=== PATIENT | female | born 1940 | race Caucasian/White ===

== ENCOUNTER 2016-07-30 23:15 | Inpatient (IN) | payer MEDICARE, MEDICAID ==
[~2016-07-30] VITALS: Ht 154.9 cm; Wt 119.0 kg
[~2016-07-30 23:15] MED LIST: ALBU1.25PR NEB; ALPR.5 PO; CALC250 PO; CARV3.125 PO; CITA20 PO; FURO1TAB93 PO; LEVO.025 PO; LORA10 PO; MAGN30S PO; NORC10TA2 PO; PREG75 PO; TIOT18I INH; WALKER STANDARD; WARF5 PO; WARF7.5 PO; WELLTAB39 PO; Z.0.WHEELELR
[2016-07-30 23:20] VITALS: BP 117/57; PULSE 61; RESP 16; TEMP 98.2; O2SAT 98
[2016-07-30 23:30] VITALS: RESP 18
[2016-07-30] MEDS ORDERED: SODIUM CHLORIDE 0.9% FLUSH 5 ML FLUSH IVF PRN (23:30)
[2016-07-30 23:53] LABS: AUTOMATED NEUTROPHIL # 4.6 TH/MM3 (1.8-7.7); BASOPHIL # 0.1 TH/MM3 (0-0.2); BASOPHIL % 0.9 % (0.0-2.0); EOSINOPHIL # 0.6 TH/MM3 (0-0.4); EOSINOPHIL % 7.9 % (0.0-4.0); HEMATOCRIT 35.8 % (35.0-46.0); HEMO FLAGS DIFF FINAL; LYMPH % 22.4 % (9.0-44.0); LYMPHOCYTE # 1.8 TH/MM3 (1.0-4.8); MEAN CELL VOLUME 84.4 FL (80.0-100.0); MEAN CORPUSCULAR HEMOGLOBIN 28.1 PG (27.0-34.0); MEAN CORPUSCULAR HGB CONC 33.3 % (32.0-36.0); MONO % 10.9 % (0.0-8.0); NEUT % 57.9 % (16.0-70.0); PLATELET COUNT 217 TH/MM3 (150-450); RED BLOOD COUNT 4.25 MIL/MM3 (4.00-5.30); RED CELL DISTRIBUTION WIDTH 14.3 % (11.6-17.2)
[2016-07-31] VITALS (12 sets, daily range): BP systolic 110–158; BP diastolic 55–74; PULSE 60–76; RESP 16–21; TEMP 97.6–98; O2SAT 95–100
--- NOTE | 2016-07-31 00:16 | RADRPT ---
EXAM DATE/TIME: 07/30/2016 23:50 [facility] COMPARISON: No previous studies available for comparison. INDICATIONS : Shortness of breath for 2 days MEDICAL HISTORY : Congestive heart failure. SURGICAL HISTORY : Pacemaker. ENCOUNTER: Initial ACUITY: 2 days PAIN SCORE: 0/10 LOCATION: Bilateral chest FINDINGS: Basilar predominant bilateral interstitial opacities are noted. Mild perihilar and basilar infiltrate seen on the left. No large pleural effusion seen. No pneumothorax. Mild cardiomegaly is stable. Patient has a left subclavian transvenous cardiac pacer with a single le ad, appear similar to before. CONCLUSION: Mild failure suspected with possible superimposed left base pneumonia. Antonino Will MD on July 31, 2016 at 0:13 Board Certified Radiologist. This report was verified electronically.
[2016-07-31 00:21] LABS: APTT (PATIENT) 34.1 SEC (24.3-30.1)
[2016-07-31 00:26] LABS: ANION GAP 8 MEQ/L (5-15); AST (GOT) 13 U/L (15-37); BICARBONATE 28.7 MEQ/L (21.0-32.0); BLOOD UREA NITROGEN 21 MG/DL (7-18); CHLORIDE 103 MEQ/L (98-107); GLOMERULAR FILTRATION RATE 41 ML/MIN (>89); POTASSIUM 3.7 MEQ/L (3.5-5.1); SODIUM (NA) 140 MEQ/L (136-145)
--- NOTE | 2016-07-31 00:27 | PD ---
HPI Chief Complaint: Respiratory Symptoms Time Seen by Provider: 23:26 Travel History International Travel<30 days: No Contact w/Intl Traveler<30days: No Traveled to known affect area: No History of Present Illness HPI The patient 76 years old. She has CHF coronary artery disease atrial fibrillation with pacing device as well as a history of gastric bypass. She called EMS from her longterm. EMS states the patient wanted Xanax that her nurse at the living facility did not respond to her calls. During my exam the patient complains of pain in the region of the left chest breath. Patient is quite distractible limiting history. PFSH Past Medical History Arthritis: Yes Asthma: No Atrial Fibrillation: Yes Autoimmune Disease: No Blood Disorders: No Anxiety: Yes Depression: Yes Heart Rhythm Problems: Yes (A-FIB; PACEMAKER) Cancer: Yes (basal cell carcinoma right face ) Cardiovascular Problems: Yes High Cholesterol: Yes Chemotherapy: No Chest Pain: No Congestive Heart Failure: Yes COPD: No Cerebrovascular Accident: No Coronary Artery Disease: Yes Diabetes: No Diminished Hearing: No Deep Vein Thrombosis: Yes Endocrine: Yes Gastrointestinal Disorders: Yes GERD: No Glaucoma: No Genitourinary: No Headaches: No Hepatitis: No Hiatal Hernia: No Hypertension: No Immune Disorder: No Implanted Vascular Access Dvce: Yes Insomnia: Yes Kidney Stones: No Musculoskeletal: Yes Neurologic: Yes Psychiatric: Yes Reproductive: No Respiratory: Yes Immunizations Current: Yes Migraines: No Myocardial Infarction: No Radiation Therapy: No Renal Failure: No Seizures: No Sickle Cell Disease: No Sleep Apnea: Yes (CPAP) Thyroid Disease: Yes (HYPOTHYROID) Ulcer: No Tetanus Vaccination: < 5 Years Influenza Vaccination: Yes PNEUMOCCOCAL Vaccine (Year): 2008 ?: Not Menopausal: Yes Past Surgical History Abdominal Surgery: Yes (GASTRIC BYPASS THEN REVERSAL) AICD: No Appendectomy: Yes Arteriovenous Shunt: No Body Medical Devices: CERVICAL FUSION WITH INSTRUMENTATION, IVC FILTER Cardiac Surgery: No Cholecystectomy: Yes Ear Surgery: No Endocrine Surgery: No Eye Surgery: No Genitourinary Surgery: Yes Gynecologic Surgery: Yes Hysterectomy: Yes (OOPHERECTOMY ONLY) Insulin Pump: No Joint Replacement: Yes (BILATERAL KNEE REPLACEMENT X 2) Neurologic Surgery: No Oral Surgery: No Pacemaker: Yes Thoracic Surgery: No Other Surgery: Yes (ABD GROWTH REMOVED-BENIGN, SPINAL FUSION) Social History Alcohol Use: No Tobacco Use: No Substance Use: No Allergies-Medications (Allergen,Severity, Reaction): Coded Allergies: Contrast Media (Verified Allergy, Severe, HIVES, 07/30/16) Penicillin (Verified Allergy, Severe, 07/30/16) Reported Meds & Prescriptions Reported Meds & Active Scripts Active Azithromycin 250 Mg Tab 250 Mg PO DAILY 4 Days Albuterol Sulfate 1.25 Mg/3 Ml Neb 1.25 Mg NEB Q6HR NEB 30 Days Coreg 3.125 mg (Carvedilol) 3.125 Mg Tab 3.125 Mg PO HS 30 Days Winfred 10-325 mg (Hydrocodone-Acetaminophen 10-325 mg) 10/325 mg Tab 1 Tab PO Q4HR PRN Xanax (Alprazolam) 0.5 Mg Tab 0.5 Mg PO Q8H PRN Lasix (Furosemide) 40 Mg Tab 40 Mg PO DAILY 30 Days Milk Of Magnesia (Magnesium Hydroxide) 30 Ml Susp 30 Ml PO Q12H Coumadin (Warfarin Sod) 5 Mg Tab 5 Mg PO MOWEFR@16 Coumadin (Warfarin Sod) 7.5 Mg Tab 7.5 Mg PO SUTUTHSA@16 Celexa 20 Mg Tab (Citalopram Hydrobromide) 20 Mg Tab 20 Mg PO DAILY Loratadine 10 Mg Tab 10 Mg PO DAILY Spiriva 18 Mcg18 Mcg 18 Mcg Inhp 18 Mcg INH DAILY 30 Days Levothyroxine Sodium 25 Mcg Tab 25 Mcg PO DAILY@0600 Wellbutrin X2 300 Mg Fr[place] 300 Mg PO DAILY Oscal-D 250 MG /125 UNITS Tab (Calcium/Vitamin D) 250 Mg/125 Units Tab 1 Tab PO TID Review of Systems Except as stated in HPI: all other systems reviewed are Neg Physical Exam Narrative GENERAL: 76-year-old female pleasant, BMI 62.5 SKIN: Warm and dry. HEAD: Atraumatic. Normocephalic. EYES: Pupils equal and round. No scleral icterus. No injection or drainage. ENT: No nasal bleeding or discharge. Mucous membranes pink and moist. NECK: Trachea midline. No JVD. CARDIOVASCULAR: Regular rate and rhythm. No murmur appreciated. RESPIRATORY: No accessory muscle use. Clear to auscultation. Breath sounds equal bilaterally. GASTROINTESTINAL: Soft. No focal tenderness. MUSCULOSKELETAL: No obvious deformities. No clubbing. No cyanosis. No edema. NEUROLOGICAL: Awake and alert. No obvious cranial nerve deficits. Motor grossly within normal limits. Normal speech. PSYCHIATRIC: Appropriate mood and affect; insight and judgment normal. Data Data Last Documented VS Vital Signs Date Time Temp Pulse Resp B/P Pulse Ox O2 Delivery O2 Flow Rate FiO2 07/30/16 23:30 98 Room Air 07/30/16 23:30 18 07/30/16 23:30 2 07/30/16 23:20 98.2 61 117/57 117/57 Orders Complete Blood Count With Diff (07/30/16 23:26) Comprehensive Metabolic Panel (07/30/16 23:26) B-Type Natriuretic Peptide (07/30/16 23:26) Act Partial Throm Time (Ptt) (07/30/16 23:26) Prothrombin Time / Inr (Pt) (07/30/16 23:26) Ckmb (Isoenzyme) Profile (07/30/16:26) Troponin I (07/30/16 23:26) Urinalysis - C+S If Indicated (07/30/16 23:26) Iv Access Insert/Monitor (07/30/16 23:26) Electrocardiogram (07/30/16:26) Ecg Monitoring (07/30/16 23:26) Oximetry (07/30/16 23:26) Oxygen Administration (07/30/16 23:26) Chest, Single Ap (07/30/16 23:26) Sodium Chloride 0.9% Flush (Ns Flush) (07/30/16 23:30) Alprazolam (Xanax) (07/31/16 00:45) Blood Culture (07/31/16 01:11) Ceftriaxone Inj (Rocephin Inj) (07/31/16 01:15) Azithromycin Inj (Zithromax Inj) (07/31/16 01:15) Admit Order (Ed Use Only) (07/31/16 01:11) Labs Laboratory Tests Test 07/30/16 23:30 White Blood Count 8.0 TH/MM3 Red Blood Count 4.25 MIL/MM3 Hemoglobin 11.9 GM/DL Hematocrit 35.8 % Mean Corpuscular Volume 84.4 FL Mean Corpuscular Hemoglobin 28.1 PG Mean Corpuscular Hemoglobin 33.3 % Concent Red Cell Distribution Width 14.3 % Platelet Count 217 TH/MM3 Mean Platelet Volume 9.1 FL Neutrophils (%) (Auto) 57.9 % Lymphocytes (%) (Auto) 22.4 % Monocytes (%) (Auto) 10.9 % Eosinophils (%) (Auto) 7.9 % Basophils (%) (Auto) 0.9 % Neutrophils # (Auto) 4.6 TH/MM3 Lymphocytes # (Auto) 1.8 TH/MM3 Monocytes # (Auto) 0.9 TH/MM3 Eosinophils # (Auto) 0.6 TH/MM3 Basophils # (Auto) 0.1 TH/MM3 CBC Comment DIFF FINAL Differential Comment Prothrombin Time 23.0 SEC Prothromb Time International 2.0 RATIO Ratio Activated Partial 34.1 SEC Thromboplast Time Sodium Level 140 MEQ/L Potassium Level 3.7 MEQ/L Chloride Level 103 MEQ/L Carbon Dioxide Level 28.7 MEQ/L Anion Gap 8 MEQ/L Blood Urea Nitrogen 21 MG/DL Creatinine 1.27 MG/DL Estimat Glomerular Filtration 41 ML/MIN Rate Random Glucose 112 MG/DL Calcium Level 8.8 MG/DL Total Bilirubin 0.4 MG/DL Aspartate Amino Transf 13 U/L (AST/SGOT) Alanine Aminotransferase 16 U/L (ALT/SGPT) Alkaline Phosphatase 117 U/L Total Creatine Kinase 57 U/L Troponin I LESS THAN 0.02 NG/ML B-Type Natriuretic Peptide 225 PG/ML Total Protein 7.2 GM/DL Albumin 3.3 GM/DL MDM Medical Decision Making Medical Screen Exam Complete: Yes Emergency Medical Condition: Yes Medical Record Reviewed: Yes Differential Diagnosis Pneumonia, gastritis, chronic pain Narrative Course CBC & BMP Diagram 07/30/16 23:30 LFTs essentially normal Troponin less than 0.02 EKG reveals an electronic maker morphology at a rate of 61 x-ray shows a pneumonia at the left base. Patient notes spitting up quite a bit however denies any specific cough shortness of breath or fever. She did mention that in addition to her desire for Xanax she had discomfort towards the left lower part of the chest. Blood cultures drawn. Rocephin and azithromycin drawn. Troponin is undetectable. Case discussed with Dr. Zacarias. PNA severity index is 138 and patient will be admitted for abx treatment and monitoring. Diagnosis Primary Impression: Pneumonia Qualified Code: J18.1 - Pneumonia of left lower lobe due to infectious organism Referrals: Dl Zacarias MD 2 days Additional Instructions: You have a choice when it comes to health care, and we are glad that you chose [facility]. Hopefully, we have met your expectations on today's visit. You are welcome to return to [facility] at any time, as we are committed to meeting the health care needs of our community. Med/Other Pt SpecificInfo: Prescription(s) given Scripts Azithromycin 250 Mg [id number] Mg PO DAILY 4 Days Ref 0 Prov:Rashawn Tijerina MD 07/31/16 Disposition: 01 DISCHARGE HOME Condition: Stable Rashawn Tijerina MD Jul 31, 2016 00:27
[2016-07-31 00:31] LABS: ALKALINE PHOSPHATASE 117 U/L (45-117); ALT (GPT) 16 U/L (10-53); TOTAL BILIRUBIN ADULT 0.4 MG/DL (0.2-1.0)
[2016-07-31 00:32] LABS: CREATINE KINASE 57 U/L (26-192)
[2016-07-31] MEDS ORDERED: ALPRAZolam 0.5 MG TAB PO ONE (00:45)
[2016-07-31] MEDS ORDERED: AZIT250T3 PO (01:07)
[2016-07-31] MEDS ORDERED: cefTRIAXone INJ 1,000 MG in SODIUM CHLORIDE 0.9% INJ 100 ML IV ONE (01:15)
[2016-07-31] MEDS ORDERED: AZITHROMYCIN INJ 500 MG in SODIUM CHLOR 0.9% 250 ML INJ 250 ML IV ONE (01:15)
[2016-07-31] MEDS ORDERED: SODIUM CHLORIDE 0.9% FLUSH 5 ML FLUSH IVF PRN ×3 (01:30)
[2016-07-31] MEDS ORDERED: ACETAMINOPHEN 325 MG TAB PO PRN (01:30)
[2016-07-31] MEDS ORDERED: NALOXONE HCL 0.4 MG/ML AMP IV PRN (01:30)
[2016-07-31] MEDS: SODIUM CHLORIDE 0.9% FLUSH 5 ML FLUSH FLUSH SCH ×3 (01:30→21:14)
[2016-07-31] MEDS ORDERED: SODIUM CHLORIDE 0.9% FLUSH 5 ML FLUSH FLUSH PRN (01:30)
[2016-07-31] MEDS ORDERED: ONDANSETRON HCL 4 MG/2 ML VIAL IVP PRN (01:30)
[2016-07-31] MEDS: ACETAMINOPHEN/HYDROcodone 325 MG/10 MG TAB PO PRN ×2 (02:25→17:46)
[2016-07-31 02:26] LABS: BACTERIA, URINE MOD /hpf; BLOOD, URINE NEG (NEG); GLUCOSE,URINE NEG (NEG); KETONE, URINE NEG (NEG); NITRITE,URINE NEG (NEG); PH, URINE 6.5 (5.0-8.5); SQUAMOUS EPITHELIAL CELL URINE 1 /hpf (0-5); URINE COLOR YELLOW (YELLW/STRAW)
[2016-07-31 02:27] LABS: COMMENT (UR) CATH-CULTURE IND; CULTURE IF INDICATED CATH CULTURE IND
[2016-07-31] MEDS: ALPRAZolam 0.5 MG TAB PO PRN ×3 (03:08→17:47)
--- NOTE | 2016-07-31 03:23 | RADRPT ---
EXAM DATE/TIME: 07/31/2016 02:38 [facility] COMPARISON: CHEST SINGLE AP, July 30, 2016, 23:50. CT THORAX W/O CONTRAST, February 23, 2015, 16:11. INDICATIONS : Shortness of breath and chest pain. RADIATION DOSE: 18.14 CTDIvol (mGy) MEDICAL HISTORY : Cardiovascular disease. Deep venous thrombosis. SURGICAL HISTORY : Pacemaker. Cholecystectomy.Appendectomy. Hysterectomy ENCOUNTER: Initial ACUITY: 1 day PAIN SCALE: 5/10 LOCATION: Bilateral chest TECHNIQUE: Volumetric scanning of the chest was performed. Using automated exposure control and adjustment of t he mA and/or kV according to patient size, radiation dose was kept as low as reasonably achievable to obtain optimal diagnostic quality images. FINDINGS: Mild bibasilar predominant thickening of the interlobular septa noted. Mid and upper lung predominant patchy nodular infiltrate is also noted. No pleural effusion. No pneumothorax. There is mild cardiomegaly, mainly and left atrial enlargement. Cardiac pacer present. Coronary arter y calcification again noted. No lymphadenopathy seen. CONCLUSION: 1. Bilateral reticulonodular infiltrates suggesting infectious or inflammatory process superimposed o n mild pulmonary edema. The individual nodules measure up to 6 mm in size. Followup noncontrast chest CT recommended within a couple months to confirm that the nodular areas resolve. 2. No lymphadenopathy demonstrated. 3. Left atrial enlargement. Coronary artery calcification. Antonino Will MD on July 31, 2016 at 3:15 Board Certified Radiologist. This report was verified electronically.
[2016-07-31] MEDS: AZTREONAM INJ 2,000 MG in SODIUM CHLORIDE 0.9% INJ 100 ML IV SCH ×3 (03:26→19:20)
[2016-07-31] MEDS: LEVOTHYROXINE SODIUM 25 MCG TAB PO SCH (06:27)
[2016-07-31] MEDS ORDERED: POTASSIUM CHLORIDE 10 MEQ CAP PO SCH (09:00)
[2016-07-31] MEDS: SODIUM CHLORIDE 0.9% FLUSH 5 ML FLUSH IVF SCH ×2 (09:00→21:00)
[2016-07-31] MEDS ORDERED: SODIUM CHLORIDE 0.9% FLUSH 5 ML FLUSH IVF SCH ×2 (09:00)
[2016-07-31] MEDS: CITALOPRAM HYDROBROMIDE 20 MG TAB PO SCH (10:03)
[2016-07-31] MEDS: LORATADINE 10 MG TAB PO SCH (10:03)
[2016-07-31] MEDS: LACTOBACILLUS ACIDOPHILUS TAB PO SCH ×3 (10:03→17:42)
[2016-07-31] MEDS: FUROSEMIDE 40 MG TAB PO SCH ×2 (10:03→17:42)
[2016-07-31] MEDS: buPROPion HCL 150 MG SUSTAINED RELEASE TAB PO SCH ×2 (10:38→21:14)
[2016-07-31] MEDS: TIOTROPIUM BROMIDE 18 MCG INH INH SCH (10:38)
[2016-07-31] MEDS ORDERED: CITA20TA4 PO (10:43)
[2016-07-31] MEDS ORDERED: HYDR-3535 PO (10:43)
[2016-07-31] MEDS ORDERED: TUMS1000 CHEW (10:43)
[2016-07-31] MEDS ORDERED: ALBU0.63 NEB ×2 (10:43)
[2016-07-31] MEDS ORDERED: COUM10TA PO (10:43)
[2016-07-31] MEDS ORDERED: D-MAPOW8 PO (10:43)
[2016-07-31] MEDS ORDERED: WARF-21 PO (10:43)
[2016-07-31] MEDS ORDERED: CARV3.12 PO (10:43)
[2016-07-31] MEDS ORDERED: LEVO25TA4 PO (10:49)
[2016-07-31] MEDS ORDERED: LORA10TA PO (10:49)
[2016-07-31] MEDS ORDERED: FURO1TAB60 PO (10:49)
[2016-07-31] MEDS ORDERED: MILKSUS PO (10:50)
[2016-07-31] MEDS ORDERED: WELLTAB39 PO (10:50)
[2016-07-31] MEDS ORDERED: NYST10007 TOPICAL (10:50)
[2016-07-31] MEDS ORDERED: K-TA10TA PO (10:50)
[2016-07-31] MEDS ORDERED: SPIRCAP INH (10:50)
[2016-07-31] MEDS ORDERED: MIRA33504 PO (10:50)
[2016-07-31] MEDS ORDERED: ALPR.5 PO (10:50)
[2016-07-31] MEDS ORDERED: BUMETANIDE INJ 1 MG/4 ML VIAL IV PUSH ONE (13:00)
--- NOTE | 2016-07-31 14:07 | MH ---
cc: POOJA JOHNSON M.D. DATE OF ADMISSION: 07/31/2016 ADMISSION DIAGNOSIS Shortness of breath, pneumonia, congestive heart failure. HISTORY OF PRESENT ILLNESS This 76-year-old white female well-known to the undersigned physician has an extensive cardiac history including chronic systolic heart failure with a cardiomyopathy, sick sinus syndrome requiring pacemaker placement and chronic atrial fibrillation. The patient resides in a long-term care facility. On the night prior to admission the patient states that she felt a little more short of breath and pressed the button to have the nurses come and give her a Xanax. The nurses did not respond so she called EMS and they came to the facility and transported the patient to the hospital. She reports no significant chest pain, no diaphoresis, no nausea or vomiting. The patient states that by the time she got to the emergency department, she was feeling better. Her evaluation in the emergency department was suspicious for pneumonia. She has had no fever, chills, night sweats. She denies any cough or sputum production. The patient has no difficulty with swallowing. She denies any choking with eating. She has had no abdominal pain, nausea, vomiting. Her bowels have been moving well without any diarrhea, constipation. She is chronically incontinent of urine. She has had no headaches, visual changes or lateralizing neurologic deficits. The patient denies any melena, hematochezia or hematuria. She normally is on Coumadin for prophylaxis against embolism from atrial fibrillation. PAST MEDICAL HISTORY Her past medical history is positive for: 1. Frequent urinary tract infections. 2. Chronic atrial fibrillation. 3. Chronic systolic heart failure as well as diastolic heart failure with cardiomyopathy. 4. She has had multiple hospitalizations for pulmonary edema. She has been stable now for almost a year. 5. She has chronic sleep apnea for which she uses a BiPAP every night. 6. She has morbid obesity. 7. Chronic anticoagulation due to chronic atrial fibrillation. 8. She has history of sick sinus syndrome and had a pacemaker placed in June 2014. 9. She is status post open reduction, internal fixation of the right fibula in 2014. 10. She had hypothyroidism. 11. Hyperlipidemia. 12. Anxiety. 13. Depression. 14. Insomnia. 15. History of skin cancer. 16. Lumbar disk disease with chronic lumbar radiculitis. 17. Diffuse osteoarthritis. 18. Allergic rhinitis. 19. History of DVT in the remote past. 20. She has had pulmonary emboli and has an IVC filter in place. 21. She has chronic constipation. 22. She is status post hysterectomy. 23. Status post epidural steroid injections for lumbar disk disease. 24. Status post bilateral knee replacements with subsequent revisions in 2010 and 2011. ALLERGIES PENICILLIN AND IV CONTRAST. MEDICATIONS Current medications include: 1. Prunelax two tablets daily. 2. Albuterol sulfate nebulizer treatments 0.63 mg per 3 mL by nebulizer three times a day and every 2 hours as needed for shortness of breath or wheezing. 3. Calcium carbonate 100 mg every 8 hours as needed for acid reflux. 4. Carvedilol 3.125 mg daily at bedtime. 5. Citalopram 20 mg daily. 6. Coumadin 7.5 mg daily except 10 mg on Thursday, Thursday and Thursday. 7. D-mannose powder 1400 mg twice daily. 8. Hydrocodone APAP 10/325 mg one tablet every 4 hours as needed for pain. 9. Lasix 40 mg twice daily. 10. Levothyroxine 25 mcg daily. 11. Loratadine 10 mg daily. 12. Milk of magnesia p.r.n. constipation. 13. MiraLax 17 grams in 8 ounces of liquid daily. 14. Mycostatin powder applied to affected area twice daily. 15. Potassium chloride ER 10 mEq two tablets three times a day. 16. Spiriva one inhalation daily. 17. Wellbutrin XL 300 mg daily. 18. Alprazolam 0.5 mg one tablet every 8 hours as needed for anxiety. FAMILY HISTORY Noncontributory. SOCIAL HISTORY She is , retired. She currently resides in a long-term care facility. She does not smoke nor drink alcohol. REVIEW OF SYSTEMS Negative except as outlined above. PHYSICAL EXAMINATION VITAL SIGNS: Upon arrival to the emergency department the patient's blood pressure was 117/57 with a heart rate of 61, respirations 16, temperature 98.2 degrees Fahrenheit. At the current time the patient's blood pressure is 123/62 with heart rate of 65, respirations 21, oxygen saturation on room air was 97%. GENERAL: In general this is a morbidly obese elderly white female lying in bed in no acute distress. HEENT: Pupils equal, round, reactive to light. Extraocular movements are intact. Sclerae anicteric. Conjunctivae pink. Mouth and throat reveal no teeth present. Moist mucous membranes. No erythema, exudates. NECK: Neck is supple without lymphadenopathy, JVD, bruits or thyromegaly. CARDIOVASCULAR: Regular rate and rhythm without murmurs, rubs, gallops. LUNGS: Overall clear to auscultation without wheezes, rhonchi or rales. ABDOMEN: Obese, soft, nontender, nondistended. On further palpation difficult due to the morbid obesity. /RECTAL: Deferred. LOWER EXTREMITIES: Lower extremities reveal no appreciable edema. 2+ distal pulses. No calf tenderness. No Homans' sign. SKIN: Warm and dry. No significant rashes or lesions. NEUROLOGIC: Examination is nonfocal. LABORATORY DATA The patient's white blood cell count was 8000 with hemoglobin 11.9, hematocrit 35.8, platelet count was 217,000. The INR was 2.0. APTT 34.1. Urinalysis revealed specific gravity of 1.012, pH 6.5, moderate leukocyte esterase, 2 RBCs, 6 WBCs and moderate bacteria. Urine culture pending. Comprehensive metabolic profile was significant for BUN of 21, creatinine 1.27, estimated GFR was 41. Troponin was less than 0.02. CK normal at 57. BNP was 225. IMAGING STUDIES The chest x-ray read mild failure suspected with possible superimposed left basilar pneumonia. A noncontrast CT scan of the chest revealed bilateral reticulonodular infiltrate suggesting infectious or inflammatory process superimposed on mild pulmonary edema. The individual nodules measure up to 6 mm in size. Recommend followup CT scan in a couple of months. No lymphadenopathy, left atrial enlargement, coronary artery calcifications. EKG Revealed electronically ventricular paced rhythm. IMPRESSION AND PLAN 1. This 76-year-old white female presented with complaint of mild shortness of breath, oxygen saturations were normal. White blood count is normal but chest x-ray is suggestive of a pneumonia. A CT scan of the chest revealed reticulonodular infiltrates. At this point the patient will be admitted to a medical-surgical bed with telemetry. She was placed on IV antibiotics in the form of azithromycin and Azactam as she does come from a long-term care facility. She is not producing any sputum, so cannot obtain a sputum specimen. Will continue her with her usual nebulizer treatments and she was placed on 2 liters per minute per nasal cannula oxygen in the emergency department. We will wean supplemental oxygen as tolerated. 2. History of chronic systolic and diastolic heart failure. The patient has a cardiomyopathy. Her CT of the chest and chest x-ray revealed some mild failure. BNP is mildly elevated but this is a chronic finding for this patient. Will provide her with her normal Lasix and potassium chloride, however, will also add a single dose of Bumex 1 mg to help with some fluid overload. The patient has a Hassan catheter in place in order to monitor output accurately due to her incontinence. The patient will continue with low-dose carvedilol as the patient's blood pressure does not tolerate a higher dosage. She was previously on lisinopril for an CURTIS inhibitor but she was unable to tolerate it due to hypotension. 3. Atrial fibrillation. The patient continues with Coumadin. INR is therapeutic. Will follow INR throughout hospitalization and adjust dosage as needed. At the current time she is pacemaker dependent. 4. Possible urinary tract infection. Urinalysis suspicious for UTI, culture pending. The current antibiotics are adequate to cover for any UTI. 5. Hypothyroidism. Continue with current dosage of levofloxacin. The patient recently had a TSH on an outpatient basis and it was within therapeutic range. 6. Anxiety, depression. Continue with Wellbutrin, citalopram and Xanax as needed. 7. Chronic lumbar radiculitis and diffuse osteoarthritis. The patient receives hydrocodone APAP as needed. 8. Sleep apnea. The patient uses BiPAP at night. I have ordered BiPAP for the patient anytime she is asleep. The patient's condition warrants at least a 3-day hospital stay for further evaluation and treatment of her pneumonia and acute on chronic congestive heart failure. MD STANISLAW Cannon/OSMIN /1:10 PM /1:30 PM [facility]THE[facility]
[2016-07-31] MEDS: WARFARIN SOD 7.5 MG TAB PO SCH (17:43)
[2016-07-31] MEDS: POTASSIUM CHLORIDE 10 MEQ CAP PO SCH (21:14)
[2016-07-31] MEDS: CARVEDILOL 3.125 MG TAB PO SCH (21:14)
[2016-07-31] MEDS: AZITHROMYCIN INJ 500 MG in SODIUM CHLOR 0.9% 250 ML INJ 250 ML IV SCH (23:52)
[2016-08-01] VITALS (9 sets, daily range): BP systolic 93–109; BP diastolic 50–63; PULSE 54–61; RESP 20; TEMP 97.9–98.6; O2SAT 94–99
[2016-08-01] MEDS: AZTREONAM INJ 2,000 MG in SODIUM CHLORIDE 0.9% INJ 100 ML IV SCH ×3 (03:08→18:06)
[2016-08-01] MEDS: LEVOTHYROXINE SODIUM 25 MCG TAB PO SCH (05:35)
[2016-08-01] MEDS: ACETAMINOPHEN/HYDROcodone 325 MG/10 MG TAB PO PRN ×2 (05:35→20:16)
[2016-08-01 06:42] LABS: INTERNATIONAL NORMALIZED RATIO 2.5 RATIO; PROTHROMBIN TIME - PATIENT 29.3 SEC (9.8-11.6)
--- NOTE | 2016-08-01 06:56 | EKG ---
Date Performed: 07/30/2016 Time Performed: 23:22:32 PTAGE: 76 years EKG: ELECTRONIC VENTRICULAR PACEMAKER ABNORMAL RHYTHM ECG NO PREVIOUS TRACING DOCTOR: Ken Thompson Interpretating Date/Time 08/01/2016 06:54:55
[2016-08-01 07:21] LABS: BICARBONATE 30.3 MEQ/L (21.0-32.0); POTASSIUM 4.7 MEQ/L (3.5-5.1)
[2016-08-01] MEDS: SODIUM CHLORIDE 0.9% FLUSH 5 ML FLUSH IVF SCH ×2 (09:00→20:18)
[2016-08-01] MEDS: TIOTROPIUM BROMIDE 18 MCG INH INH SCH (09:12)
[2016-08-01] MEDS: POTASSIUM CHLORIDE 10 MEQ CAP PO SCH ×2 (09:17→20:15)
[2016-08-01] MEDS: SODIUM CHLORIDE 0.9% FLUSH 5 ML FLUSH FLUSH SCH ×2 (09:17→20:17)
[2016-08-01] MEDS: CITALOPRAM HYDROBROMIDE 20 MG TAB PO SCH (09:17)
[2016-08-01] MEDS: buPROPion HCL 150 MG SUSTAINED RELEASE TAB PO SCH ×2 (09:17→20:15)
[2016-08-01] MEDS: LORATADINE 10 MG TAB PO SCH (09:17)
[2016-08-01] MEDS: LACTOBACILLUS ACIDOPHILUS TAB PO SCH ×2 (09:17→16:09)
[2016-08-01] MEDS: FUROSEMIDE 40 MG TAB PO SCH ×2 (09:18→16:10)
--- NOTE | 2016-08-01 09:45 | HHI.PR ---
Subjective Remarks Denies cough or SOB. Afebrile. No chest pains or palpitations. PO intake good Current Medications Medications (Trade) Dose Ordered Sig/León Route Start Time Stop Time Status Last Admin (NS Flush) 2 ml UNSCH PRN IVF 07/30/16 23:30 (NS Flush) 2 ml UNSCH PRN FLUSH 07/31/16 01:30 (NS Flush) 2 ml BID FLUSH 07/31/16 01:30 08/01/16 09:17 (Tylenol) 650 mg Q4H PRN PO 07/31/16 01:30 (Zofran Inj) 4 mg Q6H PRN IVP 07/31/16 01:30 (Narcan Inj) 0.4 mg UNSCH PRN IV 07/31/16 01:30 (NS Flush) 2 ml UNSCH PRN IVF 07/31/16 01:30 IV Flush 2 ml 2 ml BID IVF 07/31/16 09:00 Azithromycin 500 mg/Sodium Chloride 250 ml @ 250 mls/hr Q24H IV 08/01/16 01:00 07/31/16 23:52 (Azactam Inj/NS Inj) 100 ml @ 200 mls/hr Q8H IV 07/31/16 03:00 08/01/16 03:08 (Xanax) 0.5 mg Q8H PRN PO 07/31/16 01:30 07/31/16 17:47 (Coreg) 3.125 mg HS PO 07/31/16 21:00 07/31/16 21:14 (CeleXA) 20 mg DAILY PO 07/31/16 09:00 08/01/16 09:17 ([place] 10-325 Mg) 1 tab Q4HR PRN PO 07/31/16 01:30 08/01/16 05:35 (Synthroid) 25 mcg DAILY@0600 PO 07/31/16 06:00 08/01/16 05:35 (Claritin) 10 mg DAILY PO 07/31/16 09:00 08/01/16 09:17 (Coumadin) 7.5 mg SuTuThSa@16 PO 07/31/16 16:00 07/31/16 17:43 (Spiriva Inh) 18 mcg DAILY INH 07/31/16 09:00 08/01/16 09:12 (Coumadin) 10 mg MoWeFr@16 PO 08/01/16 16:00 (Wellbutrin Sr) 150 mg BID PO 07/31/16 09:00 08/01/16 09:17 (Lasix) 40 mg BID@09,18 PO 07/31/16 09:00 08/01/16 09:18 (Lactinex) 1 tab TID PO 07/31/16 09:00 08/01/16 09:17 (KCl) 20 meq BID PO 07/31/16 21:00 08/01/16 09:17 (Flu (Quadrivalent) Vaccine Inj) 0.5 ml ONCE ONCE IM 08/01/16 10:00 08/01/16 10:01 Objective Vital Signs Date Time Temp Pulse Resp B/P Pulse Ox O2 Delivery O2 Flow Rate FiO2 08/01/16 08:00 98.1 60 20 93/50 94 08/01/16 04:00 98.3 61 20 100/63 99 08/01/16 00:00 98.3 54 20 105/57 99 07/31/16 22:45 98 25 07/31/16 20:00 98.0 62 20 110/65 95 07/31/16 16:00 97.6 76 18 158/74 97 07/31/16 15:15 60 17 113/55 98 07/31/16 13:43 97 Room Air 07/31/16 12:20 65 21 123/62 98 BiPAP 21 07/31/16 10:41 99 Nasal Cannula 2 07/31/16 10:05 60 17 119/56 99 BiPAP 21 I/O 07/31/16 07/31/16 07/31/16 08/01/16 08/01/16 08/01/16 07:00 15:00 23:00 07:00 15:00 23:00 Intake Total 720 ml 360 ml Output Total 1000 ml 700 ml Balance -280 ml -340 ml Intake Oral 720 ml 360 ml Output Urine Total 1000 ml 700 ml # Bowel Movements 1 1 CV: RRR Lungs: CTA Abd: obese, soft, NT, +BS Ext: No edema or calf tenderness Result Diagram: 07/30/16 4420 08/01/16 0537 Other Results Laboratory Tests Test 08/01/16 05:37 Prothrombin Time 29.3 SEC Prothromb Time International 2.5 RATIO Ratio Sodium Level 141 MEQ/L Potassium Level 4.7 MEQ/L Chloride Level 104 MEQ/L Carbon Dioxide Level 30.3 MEQ/L Anion Gap 7 MEQ/L Blood Urea Nitrogen 23 MG/DL Creatinine 1.05 MG/DL Estimat Glomerular Filtration 51 ML/MIN Rate Random Glucose 85 MG/DL Calcium Level 9.0 MG/DL Microbiology Date/Time Procedure Status Source Growth 07/31/16 02:10 Urine Culture Received Urine Catheterized Urine Pending 07/31/16 01:45 Aerobic Blood Culture Received Blood Peripheral Pending 07/31/16 01:45 Anaerobic Blood Culture Received Blood Peripheral Pending Assessment and Plan Problem List: (1) Pneumonia Status: Acute Plan: The CT chest reveals nodular infiltrates. Cont antibiotics. Plan to transition to oral antibiotics when urine culture resulted. Will choose antibiotic to cover both pneumonia and UTI (2) Chronic combined systolic and diastolic CHF (congestive heart failure) Status: Chronic Plan: Compensated. Continue current medication (3) Sleep apnea Status: Chronic Plan: Cont BiPAP (4) UTI (lower urinary tract infection) Status: Acute Plan: UA was suspicious for UTI. Awaiting culture. Current antibiotics should cover (5) Chronic kidney disease (CKD), stage III (moderate) Status: Chronic Plan: Follow BUN and Creat (6) Depression (emotion) Status: Chronic Plan: Cont current medication (7) Anxiety Status: Chronic Plan: Alprazolam prn (8) COPD (chronic obstructive pulmonary disease) Status: Chronic (9) History of DVT of lower extremity Status: Chronic Plan: INR therapeutic (10) A-fib Status: Chronic Plan: Ventricular rate controlled. Cont Coumadin Problem Qualifiers (1) Pneumonia: Qualified Code: J18.1 - Pneumonia of left lower lobe due to infectious organism (2) Sleep apnea: Qualified Code: G47.33 - Obstructive sleep apnea syndrome (3) Depression (emotion): Qualified Code: F34.1 - Dysthymia (4) A-fib: Qualified Code: I48.2 - Chronic atrial fibrillation Dl Zacarias MD Aug 01, 2016 09:45
[2016-08-01] MEDS ORDERED: INFLUENZA VIRUS VACCINE (QUADRIVALENT) 0.5 ML SYR IM ONE (10:00)
[2016-08-01] MEDS: RESP: ALBUTEROL 2.5 MG/3 ML NEB (SCH) NEB ×2 (13:02→16:00)
[2016-08-01] MEDS ORDERED: WARFARIN SOD 10 MG TAB PO SCH (16:00)
[2016-08-01] MEDS: ALPRAZolam 0.5 MG TAB PO PRN ×2 (18:11→23:39)
[2016-08-01] MEDS: CARVEDILOL 3.125 MG TAB PO SCH (20:15)
[2016-08-01] MEDS: AZITHROMYCIN INJ 500 MG in SODIUM CHLOR 0.9% 250 ML INJ 250 ML IV SCH (23:39)
[2016-08-02] VITALS (11 sets, daily range): BP systolic 104–125; BP diastolic 55–60; PULSE 59–62; RESP 18–20; TEMP 96.6–98.5; O2SAT 95–99
[2016-08-02] MEDS: ACETAMINOPHEN/HYDROcodone 325 MG/10 MG TAB PO PRN ×2 (00:40→05:55)
[2016-08-02] MEDS: AZTREONAM INJ 2,000 MG in SODIUM CHLORIDE 0.9% INJ 100 ML IV SCH ×2 (02:28→11:57)
[2016-08-02] MEDS: LEVOTHYROXINE SODIUM 25 MCG TAB PO SCH (05:54)
[2016-08-02 07:18] LABS: INTERNATIONAL NORMALIZED RATIO 2.7 RATIO; PROTHROMBIN TIME - PATIENT 30.6 SEC (9.8-11.6)
[2016-08-02 08:07] LABS: BICARBONATE 27.7 MEQ/L (21.0-32.0); POTASSIUM 3.8 MEQ/L (3.5-5.1)
[2016-08-02] MEDS: RESP: ALBUTEROL 2.5 MG/3 ML NEB (SCH) NEB ×3 (08:13→23:22)
[2016-08-02] MEDS: SODIUM CHLORIDE 0.9% FLUSH 5 ML FLUSH FLUSH SCH ×2 (09:00→22:28)
[2016-08-02] MEDS: SODIUM CHLORIDE 0.9% FLUSH 5 ML FLUSH IVF SCH ×2 (09:00→21:00)
[2016-08-02] MEDS: TIOTROPIUM BROMIDE 18 MCG INH INH SCH (09:00)
[2016-08-02] MEDS: POTASSIUM CHLORIDE 10 MEQ CAP PO SCH ×2 (09:19→22:28)
[2016-08-02] MEDS: FUROSEMIDE 40 MG TAB PO SCH ×2 (09:19→17:10)
[2016-08-02] MEDS: LORATADINE 10 MG TAB PO SCH (09:19)
[2016-08-02] MEDS: buPROPion HCL 150 MG SUSTAINED RELEASE TAB PO SCH ×2 (09:19→22:27)
[2016-08-02] MEDS: CITALOPRAM HYDROBROMIDE 20 MG TAB PO SCH (09:19)
[2016-08-02] MEDS: LACTOBACILLUS ACIDOPHILUS TAB PO SCH ×3 (09:19→17:09)
[2016-08-02] MEDS: ALPRAZolam 0.5 MG TAB PO PRN ×2 (09:20→22:28)
--- NOTE | 2016-08-02 11:17 | HHI.PR ---
Subjective Remarks No complaints. No cough or SOB. Tolerating PO. Current Medications Medications (Trade) Dose Ordered Sig/León Route Start Time Stop Time Status Last Admin (NS Flush) 2 ml UNSCH PRN IVF 07/30/16 23:30 (NS Flush) 2 ml UNSCH PRN FLUSH 07/31/16 01:30 08/01/16 18:06 (NS Flush) 2 ml BID FLUSH 07/31/16 01:30 08/02/16 09:00 (Tylenol) 650 mg Q4H PRN PO 07/31/16 01:30 (Zofran Inj) 4 mg Q6H PRN IVP 07/31/16 01:30 (Narcan Inj) 0.4 mg UNSCH PRN IV 07/31/16 01:30 (NS Flush) 2 ml UNSCH PRN IVF 07/31/16 01:30 IV Flush 2 ml 2 ml BID IVF 07/31/16 09:00 08/02/16 09:00 Azithromycin 500 mg/Sodium Chloride 250 ml @ 250 mls/hr Q24H IV 08/01/16 01:00 08/01/16 23:39 (Azactam Inj/NS Inj) 100 ml @ 200 mls/hr Q8H IV 07/31/16 03:00 08/02/16 02:28 (Xanax) 0.5 mg Q8H PRN PO 07/31/16 01:30 08/02/16 09:20 (Coreg) 3.125 mg HS PO 07/31/16 21:00 08/01/16 20:15 (CeleXA) 20 mg DAILY PO 07/31/16 09:00 08/02/16 09:19 ([place] 10-325 Mg) 1 tab Q4HR PRN PO 07/31/16 01:30 08/02/16 05:55 (Synthroid) 25 mcg DAILY@0600 PO 07/31/16 06:00 08/02/16 05:54 (Claritin) 10 mg DAILY PO 07/31/16 09:00 08/02/16 09:19 (Coumadin) 7.5 mg SuTuThSa@16 PO 07/31/16 16:00 07/31/16 17:43 (Spiriva Inh) 18 mcg DAILY INH 07/31/16 09:00 08/02/16 09:00 (Coumadin) 10 mg MoWeFr@16 PO 08/01/16 16:00 08/01/16 16:09 (Wellbutrin Sr) 150 mg BID PO 07/31/16 09:00 08/02/16 09:19 (Lasix) 40 mg BID@09,18 PO 07/31/16 09:00 08/02/16 09:19 (Lactinex) 1 tab TID PO 07/31/16 09:00 08/02/16 09:19 (KCl) 20 meq BID PO 07/31/16 21:00 08/02/16 09:19 Objective Vital Signs Date Time Temp Pulse Resp B/P Pulse Ox O2 Delivery O2 Flow Rate FiO2 08/02/16 08:00 97.3 59 20 114/58 98 08/02/16 05:19 98 21 08/02/16 04:00 96.6 62 20 104/60 97 08/02/16 00:09 96 21 08/02/16 00:00 97.3 60 20 106/55 99 08/01/16 22:50 98 21 08/01/16 20:03 60 08/01/16 20:00 97.9 61 20 106/53 94 08/01/16 16:00 98.2 60 20 107/58 99 08/01/16 13:18 98 25 08/01/16 12:00 98.6 60 20 109/57 98 I/O 08/01/16 08/01/16 08/01/16 08/02/16 08/02/16 08/02/16 07:00 15:00 23:00 07:00 15:00 23:00 Intake Total 360 ml 840 ml 460 ml 830 ml Output Total 700 ml 425 ml 1325 ml 350 ml Balance -340 ml 415 ml -865 ml 480 ml Intake Oral 360 ml 840 ml 360 ml 480 ml IV Total 100 ml 350 ml Output Urine Total 700 ml 425 ml 1325 ml 350 ml # Bowel Movements 1 2 CV: RRR Lungs: CTA Abd: NT, +BS Ext: No edema Result Diagram: 07/30/16 0200 08/02/16 9507 Assessment and Plan Problem List: (1) Pneumonia Status: Acute Plan: Plan to transition to oral antibiotics and discharge to shelter. Awaiting urine culture to determine if same antibiotic can be used for both (2) Chronic combined systolic and diastolic CHF (congestive heart failure) Status: Chronic Plan: Compensated. Continue current medication (3) Sleep apnea Status: Chronic Plan: Cont BiPAP (4) UTI (lower urinary tract infection) Status: Acute Plan: UA was suspicious for UTI. Awaiting culture. Current antibiotics should cover (5) Chronic kidney disease (CKD), stage III (moderate) Status: Chronic Plan: Follow BUN and Creat (6) Depression (emotion) Status: Chronic Plan: Cont current medication (7) Anxiety Status: Chronic Plan: Alprazolam prn (8) COPD (chronic obstructive pulmonary disease) Status: Chronic (9) History of DVT of lower extremity Status: Chronic Plan: INR therapeutic (10) A-fib Status: Chronic Plan: Ventricular rate controlled. Cont Coumadin Assessment and Plan Likely Discharge later today Problem Qualifiers (1) Pneumonia: Qualified Code: J18.1 - Pneumonia of left lower lobe due to infectious organism (2) Sleep apnea: Qualified Code: G47.33 - Obstructive sleep apnea syndrome (3) Depression (emotion): Qualified Code: F34.1 - Dysthymia (4) A-fib: Qualified Code: I48.2 - Chronic atrial fibrillation Dl Zacarias MD Aug 02, 2016 11:17
[2016-08-02] MEDS: WARFARIN SOD 7.5 MG TAB PO SCH (17:10)
[2016-08-02] MEDS: LINEZOLID 600 MG TAB PO SCH (22:27)
[2016-08-02] MEDS: DOXYCYCLINE HYCLATE 100 MG CAP PO SCH (22:27)
[2016-08-02] MEDS: CARVEDILOL 3.125 MG TAB PO SCH (22:28)
[2016-08-03] VITALS (8 sets, daily range): BP systolic 94–131; BP diastolic 53–67; PULSE 55–62; RESP 16–20; TEMP 97.4–98.5; O2SAT 95–100
[2016-08-03] MEDS: ACETAMINOPHEN/HYDROcodone 325 MG/10 MG TAB PO PRN ×2 (03:25→07:55)
[2016-08-03] MEDS: LEVOTHYROXINE SODIUM 25 MCG TAB PO SCH (06:20)
[2016-08-03] MEDS: FUROSEMIDE 40 MG TAB PO SCH ×2 (07:54→17:31)
[2016-08-03] MEDS: POTASSIUM CHLORIDE 10 MEQ CAP PO SCH ×2 (07:55→21:06)
[2016-08-03] MEDS: LORATADINE 10 MG TAB PO SCH (07:55)
[2016-08-03] MEDS: LACTOBACILLUS ACIDOPHILUS TAB PO SCH ×3 (07:55→17:30)
[2016-08-03] MEDS: LINEZOLID 600 MG TAB PO SCH ×2 (07:55→21:06)
[2016-08-03] MEDS: buPROPion HCL 150 MG SUSTAINED RELEASE TAB PO SCH ×2 (07:56→21:00)
[2016-08-03] MEDS: DOXYCYCLINE HYCLATE 100 MG CAP PO SCH ×2 (07:56→21:05)
[2016-08-03] MEDS: SODIUM CHLORIDE 0.9% FLUSH 5 ML FLUSH FLUSH SCH ×2 (07:58→21:00)
[2016-08-03] MEDS: SODIUM CHLORIDE 0.9% FLUSH 5 ML FLUSH IVF SCH ×2 (08:00→21:00)
[2016-08-03] MEDS: TIOTROPIUM BROMIDE 18 MCG INH INH SCH (08:00)
--- NOTE | 2016-08-03 09:11 | HHI.PR ---
Subjective Remarks Urine culture +Enterococcus. Patient placed on Zyvox po. Tolerating well. No chest pain, SOB, Nausea. Appetite good. No cough. Current Medications Medications (Trade) Dose Ordered Sig/León Route Start Time Stop Time Status Last Admin (NS Flush) 2 ml UNSCH PRN IVF 07/30/16 23:30 (NS Flush) 2 ml UNSCH PRN FLUSH 07/31/16 01:30 08/01/16 18:06 (NS Flush) 2 ml BID FLUSH 07/31/16 01:30 08/03/16 07:58 (Tylenol) 650 mg Q4H PRN PO 07/31/16 01:30 (Zofran Inj) 4 mg Q6H PRN IVP 07/31/16 01:30 (Narcan Inj) 0.4 mg UNSCH PRN IV 07/31/16 01:30 (NS Flush) 2 ml UNSCH PRN IVF 07/31/16 01:30 (NS Flush) 2 ml BID IVF 07/31/16 09:00 08/03/16 08:00 (Xanax) 0.5 mg Q8H PRN PO 07/31/16 01:30 08/02/16 22:28 (Coreg) 3.125 mg HS PO 07/31/16 21:00 08/02/16 22:28 ([place] 10-325 Mg) 1 tab Q4HR PRN PO 07/31/16 01:30 08/03/16 07:55 (Synthroid) 25 mcg DAILY@0600 PO 07/31/16 06:00 08/03/16 06:20 (Claritin) 10 mg DAILY PO 07/31/16 09:00 08/03/16 07:55 (Coumadin) 7.5 mg SuTuThSa@16 PO 07/31/16 16:00 08/02/16 17:10 (Spiriva Inh) 18 mcg DAILY INH 07/31/16 09:00 08/03/16 08:00 (Coumadin) 10 mg MoWeFr@16 PO 08/01/16 16:00 08/01/16 16:09 (Wellbutrin Sr) 150 mg BID PO 07/31/16 09:00 08/03/16 07:56 (Lasix) 40 mg BID@,18 PO 07/31/16 09:00 08/03/16 07:54 (Lactinex) 1 tab TID PO 07/31/16 09:00 08/03/16 07:55 (KCl) 20 meq BID PO 07/31/16 21:00 08/03/16 07:55 (Vibramycin) 100 mg BID PO 08/02/16 21:00 08/03/16 07:56 (Zyvox) 600 mg Q12HR PO 08/02/16 21:00 08/03/16 07:55 Objective Vital Signs Date Time Temp Pulse Resp B/P Pulse Ox O2 Delivery O2 Flow Rate FiO2 08/03/16 08:00 98.4 60 20 120/57 96 08/03/16 04:25 97 21 08/03/16 04:22 97.4 62 20 131/67 100 08/03/16 04:07 Bi-Pap 08/03/16 00:50 97.9 55 16 121/57 96 08/02/16 23:30 Bi-Pap 08/02/16 23:20 97 21 08/02/16 22:30 Room Air 08/02/16 20:00 Room Air 08/02/16 20:00 97.9 61 18 118/56 95 08/02/16 20:00 60 08/02/16 16:58 96 21 08/02/16 16:00 98.2 60 20 125/57 96 08/02/16 12:55 60 08/02/16 12:00 98.5 60 20 112/55 98 I/O 08/02/16 08/02/16 08/02/16 08/03/16 08/03/16 08/03/16 07:00 15:00 23:00 07:00 15:00 23:00 Intake Total 830 ml 822 ml 500 ml Output Total 350 ml 850 ml 450 ml Balance 480 ml -28 ml 50 ml Intake Oral 480 ml 720 ml 500 ml IV Total 350 ml 102 ml Output Urine Total 350 ml 850 ml 450 ml # Bowel Movements 1 0 Gen: NAD CV: RRR Lungs: CTA Abd: obese, soft, NT, +BS Result Diagram: 07/30/16 2330 08/02/16 0545 Other Results Laboratory Tests Test 08/01/16 08/02/16 05:37 05:45 Prothrombin Time 29.3 SEC 30.6 SEC (9.8-11.6) (9.8-11.6) Prothromb Time International 2.5 RATIO 2.7 RATIO Ratio Sodium Level 141 MEQ/L 141 MEQ/L (136-145) (136-145) Potassium Level 4.7 MEQ/L 3.8 MEQ/L (3.5-5.1) (3.5-5.1) Chloride Level 104 MEQ/L 105 MEQ/L (98-107) (98-107) Carbon Dioxide Level 30.3 MEQ/L 27.7 MEQ/L (21.0-32.0) (21.0-32.0) Anion Gap 7 MEQ/L (5-15) 8 MEQ/L (5-15) Blood Urea Nitrogen 23 MG/DL (7-18) 28 MG/DL (7-18) Creatinine 1.05 MG/DL 1.20 MG/DL (0.50-1.00) (0.50-1.00) Estimat Glomerular Filtration 51 ML/MIN (>89) 43 ML/MIN (>89) Rate Random Glucose 85 MG/DL 73 MG/DL (74-106) (74-106) Calcium Level 9.0 MG/DL 9.0 MG/DL (8.5-10.1) (8.5-10.1) Assessment and Plan Problem List: (1) Pneumonia Status: Acute Plan: Improved. Asymptomatic. Patient tolerating Levaquin. Will complete 10 days antibiotic. (2) Chronic combined systolic and diastolic CHF (congestive heart failure) Status: Chronic Plan: Compensated. Continue current medication (3) Sleep apnea Status: Chronic Plan: Cont BiPAP (4) UTI (lower urinary tract infection) Status: Acute Plan: Enterococcus UTI. Complete course Zyvox (5) Chronic kidney disease (CKD), stage III (moderate) Status: Chronic Plan: Follow BUN and Creat (6) Depression (emotion) Status: Chronic Plan: Cont Wellbutrin. Citalopram on hold while receiving Zyvox due to risk of Serotonin Syndrome (7) Anxiety Status: Chronic Plan: Alprazolam prn (8) COPD (chronic obstructive pulmonary disease) Status: Chronic Plan: Cont Nebs and Spiriva (9) History of DVT of lower extremity Status: Chronic Plan: INR therapeutic (10) A-fib Status: Chronic Plan: Ventricular rate controlled. Cont Coumadin Discharge Planning [facility]charge to [facility] today Problem Qualifiers (1) Pneumonia: Qualified Code: J18.1 - Pneumonia of left lower lobe due to infectious organism (2) Sleep apnea: Qualified Code: G47.33 - Obstructive sleep apnea syndrome (3) Depression (emotion): Qualified Code: F34.1 - Dysthymia (4) COPD (chronic obstructive pulmonary disease): Qualified Code: J44.9 - Chronic obstructive pulmonary disease, unspecified COPD type (5) A-fib: Qualified Code: I48.2 - Chronic atrial fibrillation Dl Zacarias MD Aug 03, 2016 09:11
[2016-08-03] MEDS ORDERED: PRUNELAX PO (09:22)
[2016-08-03] MEDS ORDERED: ZYVO600T PO (09:22)
[2016-08-03] MEDS ORDERED: LACT PO (09:22)
[2016-08-03] MEDS ORDERED: LEVO500T3 PO (09:22)
[2016-08-03] MEDS: RESP: ALBUTEROL 2.5 MG/3 ML NEB (SCH) NEB ×2 (09:37→16:24)
[2016-08-03 09:43] LABS: INTERNATIONAL NORMALIZED RATIO 3.4 RATIO
[2016-08-03 10:02] LABS: BICARBONATE 31.8 MEQ/L (21.0-32.0); POTASSIUM 4.2 MEQ/L (3.5-5.1)
[2016-08-03] MEDS: WARFARIN SOD 7.5 MG TAB PO SCH (11:33)
[2016-08-03] MEDS: ALPRAZolam 0.5 MG TAB PO PRN (14:59)
[2016-08-03] MEDS: CARVEDILOL 3.125 MG TAB PO SCH (21:05)
[2016-08-04] VITALS: BP 142/73; PULSE 59; RESP 20; TEMP 97.2; O2SAT 98
--- NOTE | 2016-09-25 16:47 | HHI.DS ---
Discharge Summary Admission Date Jul 31, 2016 at 01:14 Discharge Date: Aug 03, 2016 Admitting Diagnosis [facility] Base PNA (1) Pneumonia Diagnosis: Principal (2) A-fib Diagnosis: Secondary (3) Chronic combined systolic and diastolic CHF (congestive heart failure) Diagnosis: Secondary (4) UTI (lower urinary tract infection) Diagnosis: Secondary (5) Sleep apnea Diagnosis: Secondary (6) Chronic kidney disease (CKD), stage III (moderate) Diagnosis: Secondary (7) COPD, mild Diagnosis: Secondary (8) Radiculitis, lumbosacral Diagnosis: Secondary (9) History of DVT of lower extremity Diagnosis: Secondary (10) History of pulmonary embolism Diagnosis: Secondary (11) Status cardiac pacemaker Diagnosis: Secondary (12) S/P IVC filter Diagnosis: Secondary Brief History This 76-year-old white female has an extensive past medical history. She resides in a long-term care facility. On the night of admission, the patient became anxious and wanted a Xanax. The nurse was not bringing it fast enough so she began to feel short of breath. At that time. The patient called EMS herself and had them take her to the hospital to be further evaluated. The patient denied any cough or sputum production. She has had no fever, chills or night sweats. Her appetite has been good. She does have chronic combined systolic and diastolic heart failure. She has had no chest pain, palpitations, nausea, vomiting, orthopnea or PND. In the emergency department the patient was found to have a white blood cell count of 8000. Her chest x-ray revealed mild failure with superimposed left basilar pneumonia. Her urinalysis revealed moderate leukocyte esterase, 2 RBCs and 6 WBCs per high powered field and moderate bacteria. A culture was obtained. It was the opinion of the emergency room physician that the patient had pneumonia and required hospitalization. Hospital Course The patient was admitted to a medical surgical bed with telemetry and started on IV antibiotics. She was given her usual doses of Lasix and spironolactone but in addition she was given a single dose of Bumex as her BNP was mildly elevated at 225. Was felt that she had some mild fluid retention. A CT scan of the chest was ordered to evaluate for the presence of a left basilar pneumonia. The chest CT revealed bilateral reticulonodular infiltrates suggesting infectious or inflammatory process superimposed on mild pulmonary edema. After 24 hours on IV antibiotics. The patient was transitioned to oral antibiotics. She continued with her usual nebulizer treatments. She denied any shortness of breath. She was comfortable on room air. Her urinalysis revealed Enterococcus faecalis, sensitive only to vancomycin or Zyvox. Since IV access is very difficult to obtain and maintain in this individual, was felt that she benefit from Zyvox to treat the enterococcus urinary tract infection. Her citalopram was held while she was on the Zyvox to reduce the risk of serotonin syndrome. On the day of discharge, the patient was eating well, sitting up in bed without any complaints. She had no shortness of breath, chest pain, palpitations, nausea or vomiting. Her bowels had moved in her urine output was adequate. The patient is normally nonambulatory, therefore, her mobility was not assessed prior to discharge. The patient was discharged in good condition to the long-term care facility with orders to continue oral antibiotics in the form of Levaquin and Zyvox. The remainder of the discharge medications are listed on the medication reconciliation sheet. Other discharge orders are included in the discharge instructions. The undersigned physician would see the patient at that facility and followup. Pt Condition on Discharge: Good Discharge Disposition: Discharge to SNF Discharge Instructions DIET: Follow Instructions for: Heart Healthy Diet Additional Diet Instructions: No added salt diet Activities you can perform: See Additionl Instruction Additional Activity Instructio: OOB with assistance only Dl Zacarias MD Sep 25, 2016 16:47
== END 2016-08-03 22:17 | DRG 194 ==
LOC: NEPE 23:15 → NEDA 07-31 01:14 → NEDH 07-31 05:40 → N04A 07-31 16:01
PROVIDERS: ADMIT Family Medicine; ATTEND Family Medicine
PROC: 5A09357 Assistance with Respiratory Ventilation, Less than 24 Consecutive Hours, Continuous Positive Airway Pressure (ICD-10-PCS; principal; 2016-07-31)
DX: J18.9 Pneumonia, unspecified organism (principal); I50.42 Chronic combined systolic (congestive) and diastolic (congestive) heart failure; I42.9 Cardiomyopathy, unspecified; I49.5 Sick sinus syndrome; E66.01 Morbid (severe) obesity due to excess calories; N39.0 Urinary tract infection, site not specified; I48.2 Chronic atrial fibrillation; I25.10 Atherosclerotic heart disease of native coronary artery without angina pectoris; M19.90 Unspecified osteoarthritis, unspecified site; E78.00 Pure hypercholesterolemia, unspecified; G47.00 Insomnia, unspecified; E03.9 Hypothyroidism, unspecified; Z85.828 Personal history of other malignant neoplasm of skin; Z96.653 Presence of artificial knee joint, bilateral; Z95.0 Presence of cardiac pacemaker; J44.9 Chronic obstructive pulmonary disease, unspecified; R32 Unspecified urinary incontinence; Z79.01 Long term (current) use of anticoagulants; G47.33 Obstructive sleep apnea (adult) (pediatric); E78.5 Hyperlipidemia, unspecified; M54.16 Radiculopathy, lumbar region; Z86.711 Personal history of pulmonary embolism; Z86.718 Personal history of other venous thrombosis and embolism; Z90.710 Acquired absence of both cervix and uterus; K59.09 Other constipation; N18.3 Chronic kidney disease, stage 3 (moderate); F34.1 Dysthymic disorder; B95.2 Enterococcus as the cause of diseases classified elsewhere
CPT/HCPCS: 71010; 71250; 80048; 80053; 81001; 82550; 83880; 84484; 85025; 85610; 85730; 87040; 87077; 87086; 87186; 93005; 94002; 94003; 94640; 94664; J0456; J0696; J7050; J7613

== ENCOUNTER 2017-03-24 06:32 | Observation (INO) | payer MEDICARE, OTHER ==
[~2017-03-24] VITALS: Ht 157.5 cm; Wt 116.5 kg
[~2017-03-24 06:32] MED LIST changes: +ALBU0.63 NEB; -ALBU1.25PR NEB; -CALC250 PO; +CARV3.12 PO; -CARV3.125 PO; -CITA20 PO; +COUM10TA PO; +D-MAPOW8 PO; +FURO1TAB60 PO; -FURO1TAB93 PO; +HYDR-3535 PO; +K-TA10TA PO; +LACT PO; -LEVO.025 PO; +LEVO25TA4 PO; +LEVO500T3 PO; -LORA10 PO; +LORA10TA PO; -MAGN30S PO; +MILKSUS PO; +MIRA33504 PO; -NORC10TA2 PO; +NYST10007 TOPICAL; -PREG75 PO; +PRUNELAX PO; +SPIRCAP INH; -TIOT18I INH; +TUMS1000 CHEW; -WALKER STANDARD; +WARF-21 PO; -WARF5 PO; -WARF7.5 PO; -Z.0.WHEELELR; +ZYVO600T PO
[2017-03-24] MEDS ORDERED: GENTAMICIN SULFATE 80 MG/2 ML VIAL ONE (07:07)
[2017-03-24] MEDS ORDERED: DOXY100C PO (07:34)
[2017-03-24] MEDS ORDERED: ALLE10TA PO (07:34)
[2017-03-24] MEDS ORDERED: ZOFR4TAB PO (07:34)
[2017-03-24] MEDS ORDERED: D-MAPOW4 PO (07:34)
[2017-03-24] MEDS ORDERED: POLY17S PO (07:34)
[2017-03-24] MEDS ORDERED: BACI28.3 TOPICAL (07:34)
[2017-03-24] MEDS ORDERED: VIIB20TA PO (07:34)
[2017-03-24] MEDS ORDERED: PROM1SUP9 RECTAL (07:34)
[2017-03-24] MEDS ORDERED: SPIRCAP INH (07:34)
[2017-03-24] MEDS ORDERED: LACTATED RINGER'S 1000 ML IV PRN (07:45)
[2017-03-24] MEDS ORDERED: METOPROLOL TARTRATE 25 MG TAB PO PRN (07:45)
[2017-03-24] MEDS ORDERED: SODIUM CHLORID 0.9% 500 ML IV PRN (07:45)
[2017-03-24] MEDS ORDERED: CHLORHEXIDINE GLUCONATE 4% SOLN 120 ML BTL TOPICAL SCH (07:45)
[2017-03-24] MEDS ORDERED: CHLORHEXIDINE GLUCONATE 2 % 1 PACK (2 CLOTHS) TOPICAL PRN (07:45)
[2017-03-24] MEDS ORDERED: INSULIN HUMAN REGULAR 1,000 UNITS/10 ML VIAL SQ PRN (07:45)
[2017-03-24] MEDS ORDERED: ceFAZolin 2 GM PREMIX 50 ML IV SCH (08:00)
[2017-03-24] MEDS ORDERED: VANCOMYCIN HCL 1000 MG VIAL ONE (08:36)
[2017-03-24] MEDS ORDERED: FAMOTIDINE 20 MG/2 ML VIAL ONE (08:45)
[2017-03-24] MEDS ORDERED: ACETAMINOPHEN 1000 MG/100 ML 100 ML IV ONE (08:45)
[2017-03-24] MEDS ORDERED: BUPIVACAINE/EPINEPHRINE 0.25% 50 ML VIAL ONE (09:33)
[2017-03-24] MEDS ORDERED: HYDR-3366 PO (10:38)
--- NOTE | 2017-03-24 10:42 | PD.OP ---
cc: Gideon Urban MD Operative Report Date of Surgery: Mar 24, 2017 Preoperative Diagnosis: Left ankle infected hardware Postoperative Diagnosis: Procedure: Removal deep hardware, irrigation and debridement of left fibula Anesthesia: Gen. Surgeon: Gideon Urban [employer] Curer(s): PETE Taylor PA-C The surgical procedure was assisted by my physician virtual assistant for advertisers. My P.A. presence was necessary throughout this case for the manipulation and positioning of the surgical extremity. My P.A. was assisting me throughout the duration of this procedure. The skill set of a physician virtual assistant for advertisers was medically necessary to complete this procedure. During the surgical case the urinalysis technician was working at the back table and the physician virtual assistant for advertisers was directly assisting me. Operation and Findings: Arti is known to me from previous open reduction internal fixation of left ankle fractures. Patient presented office this week with an open wound and visible hardware. Informed consent was obtained. Operative site was marked. She is brought to operating room. She is given IV sedation and general anesthesia. Left leg was prepped with alcohol Hibiclens and draped in usual sterile fashion. Timeout procedure was performed. Antibiotic were held until cultures were obtained. Procedure began with a 5 inch incision through previous scar. Subcutaneous tissue dissected Bovie. The hardware was all visualized. Scar tissue was incised around the plate. At this point attention was turned to removal of hardware. Each of the screws was removed using a screwdriver. The plate was now elevated and removed. Next attention was turned towards the debridement of the fibula. Curettes and rongeurs were used to debride the fibula. Cultures were obtained from the fibula. Each of the screw holes was also debrided with curettes. There was a layer fibrous tissue underneath the plate, but no emily purulence. After thorough debridement wound was thoroughly irrigated with sterile saline. At this point attention was turned closure. Subcutaneous tissues closed with 3-0 PDS and skin was closed with 3-0 nylon. Patient placed into a well molded well- padded splint. She was transferred to recovery in stable condition. Gideon Urban MD Mar 24, 2017 10:42
[2017-03-24] MEDS ORDERED: MORPHINE SULFATE 4 MG/ML INJ IV PUSH PRN (10:45)
[2017-03-24] MEDS ORDERED: ONDANSETRON HCL 4 MG/2 ML VIAL IVP PRN (10:45)
[2017-03-24] MEDS ORDERED: Post-op Orders (for Pharmacy) MISC XX ONE (10:45)
[2017-03-24] MEDS ORDERED: *RESP: ALBUTEROL 2.5 MG/3 ML NEB (PRN) PERIprocedural Use ONLY NEB ONE ×2 (11:07→11:21)
[2017-03-24] MEDS ORDERED: DO NOT ADM ANY ANTICOAGULANT DRUGS PRN (11:10)
[2017-03-24] MEDS ORDERED: KETOROLAC TROMETHAMINE 30 MG/ML (IVP) VIAL ONE (11:21)
[2017-03-24 11:30] VITALS: O2SAT 92
[2017-03-24] MEDS ORDERED: FUROSEMIDE 20 MG/2 ML VIAL ONE (11:34)
[2017-03-24] MEDS ORDERED: SUGAMMADEX SODIUM 200 MG/2 ML VIAL IV PUSH ONE ×4 (11:46→13:00)
[2017-03-24 12:00] VITALS: O2SAT 97
[2017-03-24] MEDS ORDERED: ONDANSETRON HCL 4 MG/2 ML VIAL IV PUSH ONE (12:00)
[2017-03-24] MEDS ORDERED: DEXAMETHASONE SOD PHOS 4 MG/ML VIAL IV ONE (12:00)
[2017-03-24] MEDS ORDERED: ROCURONIUM INJ 50 MG/5 ML SYRINGE IV PUSH ONE (12:00)
[2017-03-24] MEDS ORDERED: PROPOFOL 200 MG/20 ML AMP IV ONE (12:00)
[2017-03-24] MEDS ORDERED: GLYCOPYRROLATE 1 MG/5 ML SYRINGE IV PUSH ONE (12:00)
[2017-03-24] MEDS ORDERED: MIDAZOLAM HCL 2 MG/2 ML VIAL IV ONE (12:00)
[2017-03-24] MEDS ORDERED: NEOSTIGMINE 3 MG/3 ML SYR IV ONE (12:00)
[2017-03-24] MEDS ORDERED: ePHEDrine/NS 25 MG/5 ML SYR IV ONE (12:00)
[2017-03-24] MEDS ORDERED: LIDOCAINE HCL 1% PF 5 ML AMPULE OTHER ONE (12:00)
[2017-03-24 12:10] VITALS: O2SAT 98
--- NOTE | 2017-03-24 12:15 | PD.ORT.PN ---
Subjective Subjective Remarks POD 0 s/p I&D with LYNNE left ankle patient having respiratory issues in PACU. nurse reports giving reversal and nebulizer treatment. had Sats in 70s Objective Vitals Vital Signs Date Time Temp Pulse Resp B/P (MAP) Pulse Ox O2 Delivery O2 Flow Rate FiO2 03/24/17 11:30 92 BiPAP 100 03/24/17 11:30 92 100 03/24/17 06:50 98.2 62 20 142/73 (96) 97 I/O 03/23/17 03/23/17 03/23/17 03/24/17 03/24/17 03/24/17 06:59 14:59 22:59 06:59 14:59 22:59 Intake Total 700 ml Balance 700 ml Other 700 ml Objective Remarks LLE: +short leg splint. intact. NVI Assessment & Plan Assessment and Plan 1) Left Ankle LYNNE - POD 0 -WBAT for transfers only -maintain splint at all times -plan for 23hr observation and plan for DC home tomorrow -medical consult placed -assuming stable tomorrow, will go home then Ger Pederson Mar 24, 2017 12:15
--- NOTE | 2017-03-24 12:33 | RADRPT ---
EXAM DATE/TIME: 03/24/2017 11:30 [facility] COMPARISON: CHEST SINGLE AP, July 30, 2016, 23:50. INDICATIONS : Shortness of breath. MEDICAL HISTORY : Chronic obstructive pulmonary disease. Congestive heart failure. SURGICAL HISTORY : Pacemaker. ENCOUNTER: Initial ACUITY: 1 day PAIN SCORE: 0/10 LOCATION: Bilateral chest FINDINGS: Bilateral perihilar infiltrates are present. Heart is mildly enlarged as previously. Accounting for r otation, the cardiac contours appear grossly stable with prominence of the aortic knob and AP window region which may reflect prominence of the vascularity. CONCLUSION: Bilateral infiltrates. Antonino Cerda MD on March 24, 2017 at 12:31 Board Certified Radiologist. This report was verified electronically.
[2017-03-24] MEDS ORDERED: KETOROLAC TROMETHAMINE 30 MG/ML (IVP) VIAL IV PUSH ONE (13:00)
[2017-03-24 13:15] VITALS: O2SAT 100
[2017-03-24] MEDS ORDERED: *morphine SULFATE 8 MG/ML PERIprocedure ONLY ONE (13:37)
[2017-03-24 15:00] VITALS: BP 118/57; PULSE 64; RESP 18; TEMP 97; O2SAT 98
--- NOTE | 2017-03-24 15:19 | RADRPT ---
EXAM DATE/TIME: 03/24/2017 10:31 [facility] COMPARISON: No previous studies available for comparison. INDICATIONS : Hardware removal of left ankle. MEDICAL HISTORY : unobtainable SURGICAL HISTORY : unobtainable. ENCOUNTER: Subsequent ACUITY: 4 - 6 months PAIN SCORE: Non-responsive. LOCATION: Left ankle FINDINGS: There are 2 screws traversing the medial malleolus and lucency is present over the distal tibia and f ibula in site of previous hardware. Soft tissue swelling is seen laterally. CONCLUSION: Postsurgical changes. Yung Joaquin MD on March 24, 2017 at 15:17 Board Certified Radiologist. This report was verified electronically.
[2017-03-24] MEDS: ACETAMINOPHEN/HYDROcodone 325 MG/7.5 MG TAB PO PRN ×2 (17:23→21:04)
[2017-03-24 20:30] VITALS: BP 113/63; PULSE 60; RESP 18; TEMP 96.8; O2SAT 98
[2017-03-24] MEDS ORDERED: ALPRAZolam 0.5 MG TAB PO PRN (23:00)
[2017-03-25 00:25] VITALS: BP 121/61; PULSE 79; RESP 19; TEMP 96.9; O2SAT 96
[2017-03-25 04:20] VITALS: BP 108/51; PULSE 60; RESP 19; TEMP 96.1; O2SAT 96
[2017-03-25] MEDS: ACETAMINOPHEN/HYDROcodone 325 MG/7.5 MG TAB PO PRN ×3 (06:41→14:55)
[2017-03-25 08:00] VITALS: BP 84/66; PULSE 65; RESP 18; TEMP 96.8; O2SAT 91
--- NOTE | 2017-03-25 08:18 | PD.ORT.PN ---
Subjective Subjective Remarks POD 1 s/p I&D with LYNNE left ankle patient improving. reports left ankle pain. states doing well breathing Objective Vitals Vital Signs Date Time Temp Pulse Resp B/P (MAP) Pulse Ox O2 Delivery O2 Flow Rate FiO2 03/25/17 08:00 96.8 65 18 84/66 (72) 91 03/25/17 04:20 96.1 60 19 108/51 (70) 96 03/25/17 00:25 96.9 79 19 121/61 (81) 96 03/24/17 22:04 Nasal Cannula 4.00 03/24/17 20:30 96.8 60 18 113/63 (80) 98 03/24/17 15:00 97.0 64 18 118/57 (77) 98 03/24/17 14:20 97.6 60 16 114/66 (82) 97 Nasal Cannula 4 03/24/17 14:00 60 17 96/61 (73) 96 Nasal Cannula 4 03/24/17 13:45 61 17 112/53 (72) 96 Nasal Cannula 4 03/24/17 13:30 60 16 119/54 (75) 100 Nasal Cannula 4 03/24/17 13:15 64 16 139/57 (84) 100 Bi-Pap 40 03/24/17 13:15 100 Nasal Cannula 2.00 03/24/17 13:00 60 15 156/61 (92) 100 Bi-Pap 40 03/24/17 12:45 60 20 173/68 (103) 96 Bi-Pap 50 03/24/17 12:30 60 22 171/66 (101) 96 Bi-Pap 50 03/24/17 12:15 59 24 157/65 (95) 96 Bi-Pap 100 03/24/17 12:10 98 40 03/24/17 12:00 97 60 03/24/17 12:00 60 24 157/65 (95) 96 Bi-Pap 100 03/24/17 11:45 60 30 175/95 (121) 92 Bi-Pap 100 03/24/17 11:30 60 32 155/95 (115) 85 Bi-Pap 03/24/17 11:30 92 BiPAP 100 03/24/17 11:30 92 100 03/24/17 11:12 97.8 65 28 177/98 (124) 78 Simple Mask 15 I/O 9/03/24/17 03/24/17 03/25/17 03/25/17 03/25/17 07:00 15:00 23:00 07:00 15:00 23:00 Intake Total 700 ml 600 ml 120 ml Output Total 450 ml 325 ml Balance 700 ml 150 ml -205 ml Intake Oral 600 ml 120 ml Other 700 ml Output Urine Total 450 ml 325 ml # Bowel Movements 0 0 Objective Remarks LLE: +short leg splint. intact. NVI Assessment & Plan Assessment and Plan 1) Left Ankle LYNNE - POD 1 -WBAT for transfers only -maintain splint at all times -cleared for DC today to rehab if ok with medical -f/u with [facility] or [facility] in 2 weeks Ger Pederson Mar 25, 2017 08:18
[2017-03-25] MEDS ORDERED: RESP: ALBUTEROL 0.63 MG/3 ML NEB (PRN) NEB (08:45)
[2017-03-25] MEDS ORDERED: buPROPion HCL 150 MG SUSTAINED RELEASE TAB PO SCH (09:00)
[2017-03-25] MEDS ORDERED: LEVOTHYROXINE SODIUM 25 MCG TAB PO SCH (09:00)
--- NOTE | 2017-03-25 09:06 | PD.CONS ---
HPI Service [facility] Consult Requested By Dr. Mullins Reason for Consult Medical management Primary Care Physician Dl Zacarias MD Diagnoses: History of Present Illness Mrs. Mg is a 77-year-old white female with significant past medical history of A. fib, sleep apnea uses CPAP, obesity, A. fib, prior DVT, on chronic anticoagulation, hypertension, has a pacemaker for sick sinus syndrome. Patient was admitted for elective surgery. Patient underwent ORIF of the left ankle on 09/13/2015 and has been residing at [facility] undergoing rehabilitation. She is nonweightbearing on the left leg. Sometime in February , she was noted with the screw protruding from the surgical site and was treated with topical and oral antibiotics. She was admitted per Dr. Mullins on and underwent removal deep hardware, irrigation and debridement of left fibula. During PACU recovery, patient was in respiratory distress, wheezing with increased cough. She was giving DuoNeb's and verbalize improvement. Hospital services are requested for medical management. Patient is now evaluated, she is currently on room air, sats are [id number]%. She uses a CPAP at night for sleep apnea. States that shortness of breath has improved but would like another breathing treatment. She denies any chest pain, has had minimal cough with clear sputum. No recent, no chills. Had an x-ray that shows bilateral perihilar infiltrates. There hasn't been any reported fever. Review of Systems Constitutional: DENIES: Diaphoretic episodes, Fatigue, Fever, Weight gain, Weight loss, Chills, Dizziness, Change in appetite, Night Sweats Endocrine: DENIES: Abnorml menstrual pattern, Heat/cold intolerance, Polydipsia , Polyuria, Polyphagia Eyes: DENIES: Blurred vision, Diplopia, Eye inflammation, Eye pain, Vision loss , Photosensitivity, Double Vision Ears, nose, mouth, throat: DENIES: Tinnitus, Hearing loss, Vertigo, Nasal discharge, Oral lesions, Throat pain, Hoarseness, Ear Pain, Running Nose, Epistaxis, Sinus Pain, Toothache, Odynophagia Respiratory: COMPLAINS OF: Cough, Wheezing, Sputum production, Shortness of breath, DENIES: Apneas, Snoring, Hemoptysis Cardiovascular: DENIES: Chest pain, Palpitations, Syncope, Dyspnea on Exertion , PND, Lower Extremity Edema, Orthopnea, Claudication Gastrointestinal: DENIES: Abdominal pain, Black stools, Bloody stools, Constipation, Diarrhea, Nausea, Vomiting, Difficulty Swallowing, Anorexia Genitourinary: DENIES: Abnormal vaginal bleeding, Dysmenorrhea, Dyspareunia, Sexual dysfunction, Urinary frequency, Urinary incontinence, Urgency, Hematuria , Dysuria, Nocturia, Vaginal discharge Musculoskeletal: COMPLAINS OF: Joint pain Integumentary: DENIES: Abnormal pigmentation, Pruritus, Rash, Nail changes, Breast masses, Breast skin changes, Nipple discharge Hematologic/lymphatic: DENIES: Bruising, Lymphadenopathy Immunologic/allergic: DENIES: Eczema, Urticaria Neurologic: DENIES: Abnormal gait, Headache, Localized weakness, Paresthesias, Seizures, Speech Problems, Tremor, Poor Balance Psychiatric: DENIES: Anxiety, Confusion, Mood changes, Depression, Hallucinations, Agitation, Suicidal Ideation, Homicidal Ideation, Delusions Past Family Social History Past Medical History 1. Frequent urinary tract infections. 2. Chronic atrial fibrillation. 3. Chronic systolic heart failure as well as diastolic heart failure with cardiomyopathy. 4. She has had multiple hospitalizations for pulmonary edema. She has been stable now for almost a year. 5. She has chronic sleep apnea for which she uses a BiPAP every night. 6. She has morbid obesity. 7. Chronic anticoagulation due to chronic atrial fibrillation. 8. She has history of sick sinus syndrome and had a pacemaker placed in June 2014. 9. She is status post open reduction, internal fixation of the right fibula in 2014. 10. She had hypothyroidism. 11. Hyperlipidemia. 12. Anxiety. 13. Depression. 14. Insomnia. 15. History of skin cancer. 16. Lumbar disk disease with chronic lumbar radiculitis. 17. Diffuse osteoarthritis. 18. Allergic rhinitis. 19. History of DVT in the remote past. 20. She has had pulmonary emboli and has an IVC filter in place. 21. She has chronic constipation. 22. She is status post hysterectomy. 23. Status post epidural steroid injections for lumbar disk disease. 24. Status post bilateral knee replacements with subsequent revisions in 2010 and 2011. 24. S/P left ankle ORIF 09/13/2015 with subsequent protrusion of screw, infection, treated with abc=x Reported Medications Reported Meds & Active Scripts Active Leslie (Hydrocodone-Acetaminophen) 10-325 Mg Tab 1 Tab PO Q4H PRN Acidophilus/l-Sporogenes (Lactobacillus Acidophilus) 1 Tab Tab 1 Tab PO TID Zyvox (Linezolid) 600 Mg Tab 600 Mg PO Q12HR Reported Viibryd (Vilazodone) 20 Mg Tab 20 Mg PO DAILY Zofran (Ondansetron HCl) 4 Mg Tab 4 Mg PO Q6HR PRN Spiriva Handihaler (Tiotropium Inh) 18 Mcg Cap 18 Mcg INH DAILY 1 capsule = 18 mcg Promethazine Supp (Promethazine HCl) 25 Mg Supp 25 Mg RECTAL Q6H PRN Polyethylene Glycol 3350 Powder (Polyethylene Glycol) 17 Gram Pow 17 Gm PO DAILY Allergy Relief (Loratadine) 10 Mg Tab 10 Mg PO DAILY Doxycycline Hyclate 100 Mg Cap 100 Mg PO BID D-Mannose Powder (Bulk) 99 % Pow 1,000 Mg PO BID Polysporin Topical (Bacitracin-Polymyxin B Topical) 500-10,000 Unit/Gm Oint 1 Applic TOPICAL DIRECTED Xanax (Alprazolam) 0.5 Mg Tab 0.5 Mg PO Q8H PRN Wellbutrin Xl 24 HR (Bupropion HCl) 300 Mg Tab 300 Mg PO DAILY Spiriva Handihaler (Tiotropium Inh) 18 Mcg Cap 18 Mcg INH DAILY 1 capsule = 18 mcg K-Tab (Potassium Chloride) 10 Meq Tab 10 Meq PO BID Nystop Topical (Nystatin Topical) 100,000 Unit/Gm Powd 1 Applic TOPICAL BID Milk of Magnrodney Liq (Magnesium Hydroxide) 400 Mg/5 Ml Susp 30 Ml PO HS PRN Levothyroxine (Levothyroxine Sodium) 25 Mcg Tab 25 Mcg PO DAILY Lasix (Furosemide) 40 Mg Tab 40 Mg PO BID Lortab (Hydrocodone-Acetaminophen) 10-325 Mg Tab 1 Tab PO Q4H PRN Warfarin 7.5 Mg Tab 7.5 Mg PO SUTUTHFRSA Coumadin (Warfarin) 10 Mg Tab 10 Mg PO MOWE Carvedilol 3.125 Mg Tab 3.125 Mg PO HS Tums Ultra 1000 (Calcium Carbonate (Antacid)) 1,000 Mg Chew 1,000 Mg CHEW Q8HR PRN Albuterol Neb (Albuterol Sulfate) 0.63 Mg/3 Ml Neb 0.63 Mg NEB TID NEB Albuterol Neb (Albuterol Sulfate) 0.63 Mg/3 Ml Neb 0.63 Mg NEB Q2HR NEB PRN Allergies: Coded Allergies: diatrizoate meglumine (Unverified Allergy, Severe, HIVES, 03/24/17) gadobenic acid (Unverified Allergy, Severe, HIVES, 03/24/17) gadodiamide (Unverified Allergy, Severe, HIVES, 03/24/17) gadoteridol (Unverified Allergy, Severe, HIVES, 03/24/17) iodixanol (Unverified Allergy, Severe, HIVES, 03/24/17) iohexol (Unverified Allergy, Severe, HIVES, 03/24/17) penicillin G (Unverified Allergy, Severe, 02/10/17) Active Ordered Medications Inpatient Medications Acetaminophen/ Hydrocodone Bitart (Leslie 7.5-325 Mg) 1 tab Q3H PRN PO Pain 3< 10 Last administered on 03/25/17 06:41; Start 03/24/17 at 10:45 Albuterol Sulfate (Albuterol Neb) 0.63 mg Q2HR NEB PRN NEB SHORTNESS OF BREATH ; Start 03/25/17 at 08:45; Status UNV Alprazolam (Xanax) 0.5 mg Q8H PRN PO ANXIETY Last administered on 03/24/17 22: 55; Start 03/24/17 at 23:00 Cefazolin Sodium/ Dextrose 50 ml @ 100 mls/hr PHARMACY TECHNICIAN INFUSION IV Last administered on 03/24/17 10:28; Start 03/24/17 at 08:00; Stop 03/27/17 at 07:59 Chlorhexidine Gluconate (Chlorhexidine 2% Cloth) 3 pack PHARMACY TECHNICIAN INFUSION PRN TOPICAL SEE LABEL COMMENTS Last administered on 03/24/17 07:00; Start 03/24/17 at 07:45 ; Stop 03/27/17 at 07:44 Chlorhexidine Gluconate (Hibiclens 4% Top Soln) 1 applic ONCE TOPICAL Last administered on 03/24/17 07:00; Start 03/24/17 at 07:45; Stop 03/27/17 at 07:44 Insulin Human Regular (NovoLIN R INJ) See Protocol Table ... PHARMACY TECHNICIAN INFUSION PRN SQ SEE PROTOCOL TABLE; Start 03/24/17 at 07:45; Stop 03/27/17 at 07:44 Ketorolac Tromethamine (Toradol Inj) 15 mg NOW ONCE IV PUSH Last administered on 03/24/17 13:00; Start 03/24/17 at 13:00; Stop 03/24/17 at 13:01; Status DC Lactated Ringer's 1,000 ml @ 30 mls/hr Q24H PRN IV SEE LABEL COMMENTS Last administered on 03/24/17 07:30; Start 03/24/17 at 07:45; Stop 03/27/17 at 07:44 Metoprolol Tartrate (Lopressor) 25 mg PHARMACY TECHNICIAN INFUSION PRN PO SEE LABEL COMMENTS; Start 03/24/17 at 07:45; Stop 03/27/17 at 07:44 Miscellaneous Information ALL NURSING DEPARTME... UNSCH PRN .XX SEE LABEL COMMENTS; Start 03/24/17 at 11:10; Stop 03/25/17 at 11:09 Miscellaneous Information (Post-op Orders (for Pharmacy)) STAT ONCE XX ; Start 03/24/17 at 10:45; Stop 03/24/17 at 11:46; Status DC Morphine Sulfate (Morphine Inj) 3 mg Q3H PRN IV PUSH break thru pain; Start at 10:45 Ondansetron HCl (Zofran Inj) 4 mg Q4H PRN IVP NAUSEA OR VOMITING; Start at 10:45 Sodium Chloride 500 ml @ 30 mls/hr [id number] PRN IV SEE LABEL COMMENTS; Start at 07:45; Stop 03/27/17 at 07:44 Sugammadex Sodium (Bridion Inj) 200 mg NOW ONCE IV PUSH Last administered on 12:00; Start 03/24/17 at 13:00; Stop 03/24/17 at 13:01; Status DC Family History Reviewed, non contributory Social History Currently lives at [facility]. . No smoking, no ETOH, no substance abuse Physical Exam Vital Signs Vital Signs Date Time Temp Pulse Resp B/P (MAP) Pulse Ox O2 Delivery O2 Flow Rate FiO2 03/25/17 08:00 96.8 65 18 84/66 (72) 91 03/25/17 04:20 96.1 60 19 108/51 (70) 96 03/25/17 00:25 96.9 79 19 121/61 (81) 96 03/24/17 22:04 Nasal Cannula 4.00 03/24/17 20:30 96.8 60 18 113/63 (80) 98 03/24/17 15:00 97.0 64 18 118/57 (77) 98 03/24/17 14:20 97.6 60 16 114/66 (82) 97 Nasal Cannula 4 03/24/17 14:00 60 17 96/61 (73) 96 Nasal Cannula 4 03/24/17 13:45 61 17 112/53 (72) 96 Nasal Cannula 4 03/24/17 13:30 60 16 119/54 (75) 100 Nasal Cannula 4 03/24/17 13:15 64 16 139/57 (84) 100 Bi-Pap 40 03/24/17 13:15 100 Nasal Cannula 2.00 03/24/17 13:00 60 15 156/61 (92) 100 Bi-Pap 40 03/24/17 12:45 60 20 173/68 (103) 96 Bi-Pap 50 03/24/17 12:30 60 22 171/66 (101) 96 Bi-Pap 50 03/24/17 12:15 59 24 157/65 (95) 96 Bi-Pap 100 03/24/17 12:10 98 40 03/24/17 12:00 97 60 03/24/17 12:00 60 24 157/65 (95) 96 Bi-Pap 100 03/24/17 11:45 60 30 175/95 (121) 92 Bi-Pap 100 03/24/17 11:30 60 32 155/95 (115) 85 Bi-Pap 03/24/17 11:30 92 BiPAP 100 03/24/17 11:30 92 100 03/24/17 11:12 97.8 65 28 177/98 (124) 78 Simple Mask 15 Physical Exam GENERAL: This is a well-nourished, well-developed patient, obese female. SKIN: No rashes, ecchymoses or lesions. Cool and dry. HEAD: Atraumatic. Normocephalic. No temporal or scalp tenderness. EYES: Pupils equal round and reactive. Extraocular motions intact. No scleral icterus. No injection or drainage. ENT: Nose without bleeding, purulent drainage or septal hematoma. Throat without erythema, tonsillar hypertrophy or exudate. Uvula midline. Airway patent. NECK: Trachea midline. No JVD or lymphadenopathy. Supple, nontender, no meningeal signs. CARDIOVASCULAR: Regular rate and rhythm without murmurs, gallops, or rubs. RESPIRATORY: Essentially clear, slightly diminished at bases. GASTROINTESTINAL: Abdomen soft, non-tender, nondistended. No hepato-splenomegaly , or palpable masses. No guarding. MUSCULOSKELETAL: Left lower extremity is in a splint with bulky dressing. No other joint abnormalities. Right pedal pulse 2+. NEUROLOGICAL: Awake, alert oriented 3. No focal deficits. Laboratory Date/Time Source Procedure Growth Status 03/24/17 10:27 Wound Other Fungal Smear Pending Received 03/24/17 10:27 Wound Other Fungal Culture Pending Received Imaging Last Impressions Chest X-Ray 03/24/17 0000 Signed Impressions: Service Date/Time: Friday, March 24, 2017 11:30 - CONCLUSION: Bilateral infiltrates. Antonino Cerda MD Ankle X-Ray 03/24/17 0000 Signed Impressions: Service Date/Time: Friday, March 24, 2017 10:31 - CONCLUSION: Postsurgical changes. Yung Joaquin MD A/P Diagnosis: (1) Respiratory insufficiency ICD Codes: R06.89 - Respiratory insufficiency Status: Acute (2) COPD (chronic obstructive pulmonary disease) ICD Codes: J44.9 - COPD (chronic obstructive pulmonary disease) Status: Chronic (3) Atrial fibrillation ICD Codes: I48.91 - Atrial fibrillation Status: Chronic (4) Anxiety ICD Codes: F41.9 - Anxiety Status: Chronic (5) Depression (emotion) ICD Codes: F32.9 - Depression (emotion) Status: Chronic (6) Sleep apnea, obstructive ICD Codes: G47.33 - Sleep apnea, obstructive Status: Chronic (7) Morbid obesity ICD Codes: E66.01 - Morbid obesity Status: Chronic (8) Anticoagulant long-term use ICD Codes: Z79.01 - Anticoagulant long-term use Status: Chronic (9) Osteoarthritis ICD Codes: M19.90 - Osteoarthritis Status: Chronic (10) Hyperlipidemia ICD Codes: E78.5 - Hyperlipidemia Status: Chronic (11) History of DVT of lower extremity ICD Codes: Z86.718 - History of DVT of lower extremity Status: Chronic (12) History of pulmonary embolism ICD Codes: Z86.711 - History of pulmonary embolism Status: Acute (13) Status cardiac pacemaker ICD Codes: Z95.0 - Status cardiac pacemaker Status: Chronic (14) S/P IVC filter ICD Codes: Z98.89 - S/P IVC filter Status: Chronic (15) Diastolic CHF, chronic ICD Codes: I50.32 - Diastolic CHF, chronic Status: Chronic (16) Cardiomyopathy ICD Codes: I42.9 - Cardiomyopathy Status: Chronic (17) removal deep hardware, irrigation and debridement of left fibula 03/24 Status: Acute Assessment and Plan Thank you for this consultation, we will assist with medical management 77-year-old female with multiple comorbidities clubbing chronic congestive heart failure, COPD, history of DVT and PE, sleep apnea. Underwent elective removal deep hardware, irrigation and debridement of left fibula. She has prior history of left ankle ORIF 08/2015. Respiratory insufficiency, hypoxia during postop period Chest x-ray with bibasilar perihilar infiltrates. No fever, minimal cough with no sputum. COPD, stable Sleep apnea uses CPAP at night -Continue with supplemental oxygen to keep sats greater than 92 -Continue with DuoNeb's when necessary -Monitor for fever -We will check CBC, BMP -We will not start any antibiotics at this time, patient is clinically stable History of ORIF left ankle, status post removal of deep hardware irrigation and debridement of left fibula. -Continue postoperative orthopedic care -Orthopedic surgeon following patient -Patient has been cleared for discharge History hypertension, blood pressure noted 80s to 100s, denies dizziness. -Hold blood pressure medication Chronic A. fib, stable. On chronic anticoagulation -Resume Coumadin when okay by orthopedic -Follow INR History DVT, has IVC filter -Resume Coumadin when okay by orthopedic surgeon next Chronic diastolic heart failure, stable Hx sick sinus syndrome, has pacemaker -Continue to monitor, stable. Home medications reviewed, some initiated We'll follow up on lab results If patient does not have any further respiratory distress, no fever, no leukocytosis. Will likely clear for discharge later today Plan of care has been discussed with the patient, attending and registered nurse. Further management of the patient will be dependent on the hospital course This patient was seen by myself and Dr. Centeno, this consultation is written his behalf Problem Qualifiers (1) Atrial fibrillation: Qualified Codes: I48.91 - Unspecified atrial fibrillation (2) Depression (emotion): Qualified Codes: F32.9 - Major depressive disorder, single episode, unspecified (3) Osteoarthritis: (4) Hyperlipidemia: Qualified Codes: E78.5 - Hyperlipidemia, unspecified (5) Cardiomyopathy: Qualified Codes: I42.9 - Cardiomyopathy, unspecified Nila Foreman Mar 25, 2017 09:06
[2017-03-25 10:30] VITALS: O2SAT 97
[2017-03-25 12:00] VITALS: BP 84/53; PULSE 69; RESP 18; TEMP 98.4; O2SAT 97
[2017-03-25 12:09] LABS: HEMATOCRIT 35.3 % (35.0-46.0); MEAN CELL VOLUME 85.6 FL (80.0-100.0); MEAN CORPUSCULAR HGB CONC 32.7 % (32.0-36.0); PLATELET COUNT 219 TH/MM3 (150-450); RED BLOOD COUNT 4.13 MIL/MM3 (4.00-5.30); RED CELL DISTRIBUTION WIDTH 15.6 % (11.6-17.2); REVIEW FLAG FINAL; WHITE BLOOD COUNT 8.3 TH/MM3 (4.0-11.0)
[2017-03-25 12:27] LABS: BICARBONATE 29.3 MEQ/L (21.0-32.0); POTASSIUM 3.9 MEQ/L (3.5-5.1)
--- NOTE | 2017-03-26 07:22 | HHI.DS ---
Discharge Summary Admission Date Mar 24, 2017 at 12:13 Discharge Date: Mar 25, 2017 Admitting Diagnosis Infected hardware left ankle Diagnosis: (1) Hardware complicating wound infection Diagnosis: Principal ICD Codes: T84.7XXA - Infection and inflammatory reaction due to other internal orthopedic prosthetic devices, implants and grafts, initial encounter Status: Acute Procedures Irrigation and debridement with removal of hardware left ankle Brief History This is a 77 year old female patient CBC/BMP: 03/25/17 1045 03/25/17 1045 Significant Findings Laboratory Tests Test 03/25/17 10:45 Blood Urea Nitrogen 42 MG/DL (7-18) Creatinine 1.32 MG/DL (0.50-1.00) Estimat Glomerular Filtration Rate 39 ML/MIN (>89) PE at Discharge LLE: +short leg splint. intact. [facility] Hospital Course Patient was admitted from outpatient basis for removal of hardware left ankle due to a wound and infection. Cultures were taken in the operating room. She was taken the PACU where she started having respiratory issues with O2 saturation the 70s. Nebulizer treatment breathing treatments were initiated. The decision was made to keep her overnight for observation due to her respiratory issues. By postop day 1 she had improved significantly and was breathing well. She was out of bed with therapy. She was hemodynamically stable and fit for discharge to rehabilitation facility. She'll follow with Dr. Urban or PA in 2 weeks. She may full weight-bear for transfers only on the left leg normal maintain her splint all times Pt Condition on Discharge: Fair Discharge Disposition: Discharge to SNF Discharge Instructions Diet Instructions: As Tolerated, No Restrictions Activities You Can Perform: Partial Weight Bearing Follow up Referrals: Orthopedics - 2 Weeks @ [facility] New Medications: Hydrocodone-Acetaminophen ([place]) 10-325 Mg Tab 1 TAB PO Q4H PRN for PAIN, #50 TAB 0 Refills Continued Medications: Albuterol Neb (Albuterol Neb) 0.63 Mg/3 Ml Neb 0.63 MG NEB Q2HR NEB PRN for SHORTNESS OF BREATH, #25 NEBULE 0 Refills Albuterol Neb (Albuterol Neb) 0.63 Mg/3 Ml Neb 0.63 MG NEB TID NEB for Shortness of Breath, #100 NEBULE 0 Refills Alprazolam (Xanax) 0.5 Mg Tab 0.5 MG PO Q8H PRN for ANXIETY, TAB 0 Refills Bacitracin-Polymyxin B Topical (Polysporin Topical) 500-10,000 Unit/Gm Oint 1 APPLIC TOPICAL DIRECTED for Mgmt Bacterial Infection, #1 TUBE 0 Refills Bupropion HCl ER 24 HR (Wellbutrin Xl 24 HR) 300 Mg Tab 300 MG PO DAILY for Control Depression, TAB 0 Refills Calcium Carbonate (Antacid) (Tums Ultra 1000) 1,000 Mg Chew 1000 MG CHEW Q8HR PRN for REFLUX, TAB Carvedilol (Carvedilol) 3.125 Mg Tab 3.125 MG PO HS for AFIB, #60 TAB 0 Refills D-Mannose Powder (Bulk) (D-Mannose Powder (Bulk)) 99 % Pow 1000 MG PO BID Doxycycline Hyclate (Doxycycline Hyclate) 100 Mg Cap 100 MG PO BID for Infection, CAP 0 Refills Furosemide (Lasix) 40 Mg Tab 40 MG PO BID for EDEMA, #60 TAB 0 Refills Lactobacillus Acidophilus (Acidophilus/l-Sporogenes) 1 Tab Tab 1 TAB PO TID for probiotic, #30 TAB 0 Refills Levothyroxine (Levothyroxine) 25 Mcg Tab 25 MCG PO DAILY for Thyroid, #30 TAB 0 Refills Linezolid (Zyvox) 600 Mg Tab 600 MG PO Q12HR for Infection, #14 TAB 0 Refills Loratadine (Allergy Relief) 10 Mg Tab 10 MG PO DAILY, TAB Magnesium Hydroxide Liq (Milk of Magnesia Liq) 400 Mg/5 Ml Susp 30 ML PO HS PRN for CONSTIPATION, #30 ML 0 Refills Nystatin Topical (Nystop Topical) 100,000 Unit/Gm Powd 1 APPLIC TOPICAL BID for RASH ON BACK, #15 GM 0 Refills Ondansetron (Zofran) 4 Mg Tab 4 MG PO Q6HR PRN for NAUSEA OR VOMITING, TAB 0 Refills Polyethylene Glycol 3350 Powder (Polyethylene Glycol 3350 Powder) 17 Gram Pow 17 GM PO DAILY for Constipation, #1 BOTTLE 0 Refills Potassium Chloride ER (K-Tab) 10 Meq Tab 10 MEQ PO BID for Electrolyte Replacement, #60 TAB 0 Refills Promethazine Supp (Promethazine Supp) 25 Mg Supp 25 MG RECTAL Q6H PRN for NAUSEA OR VOMITING, SUPP 0 Refills Tiotropium Inh (Spiriva Handihaler) 18 Mcg Cap 18 MCG INH DAILY for COPD, #30 CAP 0 Refills 1 capsule = 18 mcg Tiotropium Inh (Spiriva Handihaler) 18 Mcg Cap 18 MCG INH DAILY for COPD, #30 CAP 0 Refills 1 capsule = 18 mcg Vilazodone (Viibryd) 20 Mg Tab 20 MG PO DAILY for Control Depression, #30 TAB 0 Refills Warfarin (Coumadin) 10 Mg Tab 10 MG PO MoWe for AFIB RELATED, #30 TAB 0 Refills Warfarin (Warfarin) 7.5 Mg Tab 7.5 MG PO SuTuThFrSa for DVT PROPHYLAXIS, #30 TAB 0 Refills Discontinued Medications: Hydrocodone-Acetaminophen (Lortab) 10-325 Mg Tab 1 TAB PO Q4H PRN for PAIN, TAB 0 Refills Ger Pederson Mar 26, 2017 07:22
== END 2017-03-25 16:39 ==
LOC: HSDC 06:32 → HSDI 12:13 → N06B 14:59
PROVIDERS: ADMIT Orthopaedic Surgery Orthopaedic Trauma; ATTEND Orthopaedic Surgery Orthopaedic Trauma
DX: T84.625A Infection and inflammatory reaction due to internal fixation device of left fibula, initial encounter (principal); B95.62 Methicillin resistant Staphylococcus aureus infection as the cause of diseases classified elsewhere; I11.0 Hypertensive heart disease with heart failure; I50.42 Chronic combined systolic (congestive) and diastolic (congestive) heart failure; I42.9 Cardiomyopathy, unspecified; I48.2 Chronic atrial fibrillation; J44.9 Chronic obstructive pulmonary disease, unspecified; R09.02 Hypoxemia; Z79.01 Long term (current) use of anticoagulants; Z95.0 Presence of cardiac pacemaker; Y83.1 Surgical operation with implant of artificial internal device as the cause of abnormal reaction of the patient, or of later complication, without mention of misadventure at the time of the procedure
CPT/HCPCS: 01480; 20680; 71010; 73600; 76000; 80048; 85027; 87015; 87070; 87077; 87102; 87116; 87176; 87186; 87205; 87206; 94002; 96374; 97163; 97530; G0378; G8987; G8988; J0131; J0690; J1100; J1580; J1885; J1940; J2250; J2270; J2405; J2710; J3010; J3370; J7120; J7613

== ENCOUNTER 2017-05-27 08:00 | Emergency (ER) | payer MEDICARE, OTHER ==
[~2017-05-27] VITALS: Ht 162.6 cm; Wt 110.0 kg
[~2017-05-27 08:00] MED LIST changes: +BACI28.3 TOPICAL; +D-MAPOW4 PO; -D-MAPOW8 PO; +DOXY100C PO; +HYDR-3366 PO; -HYDR-3535 PO; -LEVO500T3 PO; +LORA-650 PO; -LORA10TA PO; -MIRA33504 PO; +POLY17S PO; +PROM1SUP9 RECTAL; -PRUNELAX PO; +VIIB20TA PO; +ZOFR4TAB PO
[2017-05-27 08:17] VITALS: BP 177/74; PULSE 60; RESP 19; TEMP 98.4; O2SAT 93
--- NOTE | 2017-05-27 08:34 | PD ---
HPI Chief Complaint: Abdominal Pain Time Seen by Provider: 08:34 Travel History International Travel<30 days: No Contact w/Intl Traveler<30days: No Traveled to known affect area: No History of Present Illness HPI 77-year-old female came to the emergency room along with her from the [facility] with history of constipation for past 3 days and urinary retention since last night. says that this is a recurring problem for past some time now where patient answered it constipated. Patient is on regular pain medications for chronic pain syndrome but as per the she has been on them for past 12 years. She needed to be catheterized yesterday for urinary retention but the Hassan catheter was taken out once they had emptied 600 ML's of urine. Vital signs are stable. Patient is awake and continues to complain of abdominal pain. Patient says that her abdomen is very distended and tense. has been asking for an enema for his since the time I got in the room. [facility] Past Medical History Narrative Medical List of her past medical, surgical, social and family history is reviewed from the nursing note. Arthritis: Yes Asthma: No Atrial Fibrillation: Yes Autoimmune Disease: No Blood Disorders: No Anxiety: Yes Depression: Yes Heart Rhythm Problems: Yes (A-FIB; PACEMAKER) Cancer: Yes (basal cell carcinoma right face ) Cardiovascular Problems: Yes High Cholesterol: No Chemotherapy: No Chest Pain: No Congestive Heart Failure: Yes COPD: Yes Cerebrovascular Accident: No Coronary Artery Disease: Yes Diabetes: No Diminished Hearing: No Deep Vein Thrombosis: Yes Endocrine: Yes Gastrointestinal Disorders: Yes GERD: No Glaucoma: No Genitourinary: No Headaches: No Hepatitis: No Hiatal Hernia: No Hypertension: No Immune Disorder: No Implanted Vascular Access Dvce: Yes Insomnia: Yes Kidney Stones: No Musculoskeletal: Yes Neurologic: Yes Psychiatric: Yes Reproductive: No Respiratory: Yes Immunizations Current: Yes Migraines: No Myocardial Infarction: No Radiation Therapy: No Renal Failure: No Seizures: No Sickle Cell Disease: No Sleep Apnea: Yes (CPAP) Thyroid Disease: Yes (HYPOTHYROID) Ulcer: No PNEUMOCCOCAL Vaccine (Year): 2008 Menopausal: Yes Past Surgical History Abdominal Surgery: Yes (GASTRIC BYPASS THEN REVERSAL) AICD: No Appendectomy: Yes Arteriovenous Shunt: No Body Medical Devices: CERVICAL FUSION WITH INSTRUMENTATION, IVC FILTER Cardiac Surgery: No Cholecystectomy: Yes Ear Surgery: No Endocrine Surgery: No Eye Surgery: No Genitourinary Surgery: Yes Gynecologic Surgery: Yes Hysterectomy: Yes (OOPHERECTOMY ONLY) Insulin Pump: No Joint Replacement: Yes (BILATERAL KNEE REPLACEMENT X 2) Neurologic Surgery: No Oral Surgery: No Pacemaker: Yes Thoracic Surgery: No Other Surgery: Yes (ABD GROWTH REMOVED-BENIGN, SPINAL FUSION) Social History Alcohol Use: No Tobacco Use: No Substance Use: No Allergies-Medications (Allergen,Severity, Reaction): Coded Allergies: diatrizoate meglumine (Unverified Allergy, Severe, HIVES, 05/27/17) gadobenic acid (Unverified Allergy, Severe, HIVES, 05/27/17) gadodiamide (Unverified Allergy, Severe, HIVES, 05/27/17) gadoteridol (Unverified Allergy, Severe, HIVES, 05/27/17) iodixanol (Unverified Allergy, Severe, HIVES, 05/27/17) iohexol (Unverified Allergy, Severe, HIVES, 05/27/17) penicillin G (Unverified Allergy, Severe, 05/27/17) Comments List of her allergies reviewed from the nursing note. Reported Meds & Prescriptions Reported Meds & Active Scripts Active Macrobid (Nitrofurantoin Monoh/Nitrofur Macro) 100 Mg Cap 100 Mg PO BID 7 Days Miralax Powder (Polyethylene Glycol 3350 Powder) 17 Gm Powd 17 Gm PO DAILY Mix and dissolve one measuring cap-ful (17 grams) in water or juice. [place] (Hydrocodone-Acetaminophen) 10-325 Mg Tab 1 Tab PO Q4H PRN Acidophilus/l-Sporogenes (Lactobacillus Acidophilus) 1 Tab Tab 1 Tab PO TID Reported Viibryd (Vilazodone) 20 Mg Tab 20 Mg PO DAILY Zofran (Ondansetron HCl) 4 Mg Tab 4 Mg PO Q6HR PRN Spiriva Handihaler (Tiotropium Inh) 18 Mcg Cap 18 Mcg INH DAILY 1 capsule = 18 mcg Promethazine Supp (Promethazine HCl) 25 Mg Supp 25 Mg RECTAL Q6H PRN Polyethylene Glycol 3350 Powder (Polyethylene Glycol) 17 Gram Pow 17 Gm PO DAILY Allergy Relief (Loratadine) 10 Mg Tab 10 Mg PO DAILY Doxycycline Hyclate 100 Mg Cap 100 Mg PO BID D-Mannose Powder (Bulk) 99 % Pow 1,000 Mg PO BID Polysporin Topical (Bacitracin-Polymyxin B Topical) 500-10,000 Unit/Gm Oint 1 Applic TOPICAL DIRECTED Xanax (Alprazolam) 0.5 Mg Tab 0.5 Mg PO Q8H PRN Wellbutrin Xl 24 HR (Bupropion HCl) 300 Mg Tab 300 Mg PO DAILY Spiriva Handihaler (Tiotropium Inh) 18 Mcg Cap 18 Mcg INH DAILY 1 capsule = 18 mcg K-Tab (Potassium Chloride) 10 Meq Tab 10 Meq PO BID Nystop Topical (Nystatin Topical) 100,000 Unit/Gm Powd 1 Applic TOPICAL BID Milk of Magnrodney Liq (Magnesium Hydroxide) 400 Mg/5 Ml Susp 30 Ml PO HS PRN Levothyroxine (Levothyroxine Sodium) 25 Mcg Tab 25 Mcg PO DAILY Lasix (Furosemide) 40 Mg Tab 40 Mg PO BID Warfarin 7.5 Mg Tab 7.5 Mg PO SUTUTHFRSA Coumadin (Warfarin) 10 Mg Tab 10 Mg PO MOWE Carvedilol 3.125 Mg Tab 3.125 Mg PO HS Tums Ultra 1000 (Calcium Carbonate (Antacid)) 1,000 Mg Chew 1,000 Mg CHEW Q8HR PRN Albuterol Neb (Albuterol Sulfate) 0.63 Mg/3 Ml Neb 0.63 Mg NEB TID NEB Albuterol Neb (Albuterol Sulfate) 0.63 Mg/3 Ml Neb 0.63 Mg NEB Q2HR NEB PRN Narrative Medication List of her home medications reviewed from the nursing note. Review of Systems Except as stated in HPI: all other systems reviewed are Neg Gastrointestinal: Positive: Constipation Genitourinary: Positive: Decreased Urinary Output Physical Exam Narrative GENERAL: Awake, alert, morbidly obese, moderate distress SKIN: Focused skin assessment warm/dry. HEAD: Atraumatic. Normocephalic. EYES: Pupils equal and round. No scleral icterus. No injection or drainage. ENT: No nasal bleeding or discharge. Mucous membranes pink and moist. NECK: Trachea midline. No JVD. CARDIOVASCULAR: Regular rate and rhythm. No murmur appreciated. RESPIRATORY: No accessory muscle use. Clear to auscultation. Breath sounds equal bilaterally. GASTROINTESTINAL: Abdomen soft, distended and rigid, tender generalized. Hepatic and splenic margins not palpable. MUSCULOSKELETAL: No obvious deformities. No clubbing. No cyanosis. No edema. NEUROLOGICAL: Awake and alert. No obvious cranial nerve deficits. Motor grossly within normal limits. Normal speech. PSYCHIATRIC: Appropriate mood and affect; insight and judgment normal. Data Data Last Documented VS Orders Orders Complete Blood Count With Diff (05/27/17 08:41) Comprehensive Metabolic Panel (05/27/17 08:41) Lipase (05/27/17 08:41) Urinalysis - C+S If Indicated (05/27/17 08:41) Ct Abd/Pel W/O Iv Contrast (05/27/17 08:41) Iv Access Insert/Monitor (05/27/17 08:41) Ecg Monitoring (05/27/17 08:41) Oximetry (05/27/17 08:41) Ondansetron Inj (Zofran Inj) (05/27/17 08:45) Sodium Chloride 0.9% Flush (Ns Flush) (05/27/17 08:45) Urinary Catheter Insert/Apply (05/27/17 08:41) Morphine Inj (Morphine Inj) (05/27/17 08:45) Troponin I (05/27/17 08:41) Electrocardiogram (05/27/17 ) Chest, Single Ap (05/27/17 ) Prothrombin Time / Inr (Pt) (05/27/17 08:47) Thyroid Stimulating Hormone (05/27/17 08:47) Ceftriaxone Inj (Rocephin Inj) (05/27/17 10:00) Enema (05/27/17 09:52) Potassium Chloride (Kcl) (05/27/17 10:45) Ed Discharge Order (05/27/17 11:38) (Hub Use Only)Inp Phy Cons/Ref (05/27/17 ) Labs Laboratory Tests Test 05/27/17 08:40 05/27/17 08:55 White Blood Count 10.7 TH/MM3 Red Blood Count 4.94 MIL/MM3 Hemoglobin 14.3 GM/DL Hematocrit 43.3 % Mean Corpuscular Volume 87.5 FL Mean Corpuscular Hemoglobin 29.0 PG Mean Corpuscular Hemoglobin Concent 33.1 % Red Cell Distribution Width 16.7 % Platelet Count 303 TH/MM3 Mean Platelet Volume 9.2 FL Neutrophils (%) (Auto) 81.2 % Lymphocytes (%) (Auto) 9.0 % Monocytes (%) (Auto) 8.4 % Eosinophils (%) (Auto) 0.9 % Basophils (%) (Auto) 0.5 % Neutrophils # (Auto) 8.7 TH/MM3 Lymphocytes # (Auto) 1.0 TH/MM3 Monocytes # (Auto) 0.9 TH/MM3 Eosinophils # (Auto) 0.1 TH/MM3 Basophils # (Auto) 0.1 TH/MM3 CBC Comment DIFF FINAL Differential Comment Prothrombin Time 34.9 SEC Prothromb Time International Ratio 3.0 RATIO Blood Urea Nitrogen 23 MG/DL Creatinine 0.76 MG/DL Random Glucose 116 MG/DL Total Protein 6.5 GM/DL Albumin 2.9 GM/DL Calcium Level 7.7 MG/DL Alkaline Phosphatase 120 U/L Aspartate Amino Transf (AST/SGOT) 20 U/L Alanine Aminotransferase (ALT/SGPT) 14 U/L Total Bilirubin 0.5 MG/DL Sodium Level 141 MEQ/L Potassium Level 3.0 MEQ/L Chloride Level 109 MEQ/L Carbon Dioxide Level 22.5 MEQ/L Anion Gap 10 MEQ/L Estimat Glomerular Filtration Rate 73 ML/MIN Troponin I LESS THAN 0.02 NG/ML Lipase 75 U/L Thyroid Stimulating Hormone 3rd Gen 1.620 uIU/ML Urine Color YELLOW Urine Turbidity CLEAR Urine pH 5.0 Urine Specific [place] 1.012 Urine Protein NEG mg/dL Urine Glucose (UA) NEG mg/dL Urine Ketones NEG mg/dL Urine Occult Blood TRACE Urine Nitrite POS Urine Bilirubin NEG Urine Urobilinogen LESS THAN 2.0 MG/DL Urine Leukocyte Esterase MOD Urine RBC 1 /hpf Urine WBC 5 /hpf Urine Squamous Epithelial Cells <1 /hpf Urine Bacteria RARE /hpf Urine Hyaline Casts 5 /lpf Urine Mucus FEW /lpf Microscopic Urinalysis Comment CULT NOT INDICATED MDM Medical Decision Making Medical Screen Exam Complete: Yes Emergency Medical Condition: Yes Medical Record Reviewed: Yes Interpretation(s) Twelve-lead EKG was reviewed by me. Paced rhythm. Heart rate of 60 bpm. Differential Diagnosis Obstipation, small bowel obstruction, perforation, UTI Narrative Course 11:[address] scan of the abdomen and pelvis showed significant obstipation. Patient had a Hassan placed and blood test results were within acceptable limit except for potassium which was low. I have given replacement for the potassium. UA suggestive of UTI and patient was given a dose of Macrobid. Patient was given soapsuds enema which has yielded a good quantity of stool. I' m comfortable discharging her home at this point. Patient was given a dose of pain medication initially when she came in. Procedures EKG Prior to Arrival: No Diagnosis Primary Impression: Obstipation Additional Impressions: Urinary retention UTI (urinary tract infection) Qualified Codes: N39.0 - Urinary tract infection, site not specified Abdominal pain Qualified Codes: R10.9 - Unspecified abdominal pain Chronic pain syndrome Referrals: Richard Davenport MD 3 days Primary Care Physician 2 days Additional Instructions: Please return to the ER if the condition worsens or any other new concerns. Keep the catheter in until you have seen urologist. The urologist who is on- call for us his name and telephone number and office address has been provided in this discharge instructions. Take the medication as per the prescription direction. Med/Other Pt SpecificInfo: Prescription(s) given Scripts Nitrofurantoin Monohydrate Macrocrystals (Macrobid) 100 Mg Cap 100 MG PO BID for Infection for 7 Days, #14 CAP 0 Refills Prov: Harjeet Del Rosario MD 05/27/17 Polyethylene Glycol 3350 Powder (Miralax Powder) 17 Gm Powd 17 GM PO DAILY for Constipation, #1 CAN 0 Refills Mix and dissolve one measuring cap-ful (17 grams) in water or juice. Prov: Harjeet Del Rosario MD 05/27/17 Disposition: 01 DISCHARGE HOME Condition: Stable Harjeet Del Rosario MD May 27, 2017 08:34
[2017-05-27 08:41] VITALS: BP 147/100; PULSE 60; RESP 22; O2SAT 98
[2017-05-27] MEDS ORDERED: ONDANSETRON HCL 4 MG/2 ML VIAL IVP ONE (08:45)
[2017-05-27] MEDS ORDERED: MORPHINE SULFATE 2 MG/ML INJ IV PUSH ONE (08:45)
[2017-05-27] MEDS ORDERED: SODIUM CHLORIDE 0.9% FLUSH 10 ML FLUSH IV FLUSH PRN (08:45)
[2017-05-27 08:47] VITALS: O2SAT 99
[2017-05-27 09:00] LABS: AUTOMATED NEUTROPHIL # 8.7 TH/MM3 (1.8-7.7); BASOPHIL # 0.1 TH/MM3 (0-0.2); BASOPHIL % 0.5 % (0.0-2.0); EOSINOPHIL # 0.1 TH/MM3 (0-0.4); EOSINOPHIL % 0.9 % (0.0-4.0); HEMATOCRIT 43.3 % (35.0-46.0); HEMO FLAGS DIFF FINAL; MEAN CELL VOLUME 87.5 FL (80.0-100.0); MEAN CORPUSCULAR HGB CONC 33.1 % (32.0-36.0); MONO % 8.4 % (0.0-8.0); NEUT % 81.2 % (16.0-70.0); PLATELET COUNT 303 TH/MM3 (150-450); RED BLOOD COUNT 4.94 MIL/MM3 (4.00-5.30); RED CELL DISTRIBUTION WIDTH 16.7 % (11.6-17.2); WHITE BLOOD COUNT 10.7 TH/MM3 (4.0-11.0)
[2017-05-27 09:10] LABS: PROTHROMBIN TIME - PATIENT 34.9 SEC (9.8-11.6)
[2017-05-27 09:16] LABS: ANION GAP 10 MEQ/L (5-15); AST (GOT) 20 U/L (15-37); BICARBONATE 22.5 MEQ/L (21.0-32.0); BLOOD UREA NITROGEN 23 MG/DL (7-18); CHLORIDE 109 MEQ/L (98-107); GLOMERULAR FILTRATION RATE 73 ML/MIN (>89); SODIUM (NA) 141 MEQ/L (136-145)
[2017-05-27 09:17] LABS: ALT (GPT) 14 U/L (10-53)
[2017-05-27 09:21] LABS: ALKALINE PHOSPHATASE 120 U/L (45-117); TOTAL BILIRUBIN ADULT 0.5 MG/DL (0.2-1.0)
[2017-05-27 09:22] LABS: BACTERIA, URINE RARE /hpf; BLOOD, URINE TRACE (NEG); COMMENT (UR) CULT NOT INDICATED; CULTURE IF INDICATED CULT NOT INDICATED; GLUCOSE,URINE NEG (NEG); HYALINE CAST, URINE 5 /lpf (RARE); KETONE, URINE NEG (NEG); MUCUS URINE FEW /lpf (OCC); NITRITE,URINE POS (NEG); SQUAMOUS EPITHELIAL CELL URINE <1 /hpf (0-5); URINE COLOR YELLOW (YELLW/STRAW)
--- NOTE | 2017-05-27 09:31 | RADRPT ---
EXAM DATE/TIME: 05/27/2017 08:56 [facility] COMPARISON: CT ABDOMEN & PELVIS W/O CONTRAST, March 31, 2016, 0:32. INDICATIONS : Diffuse abdominal pain, nausea and vomiting. ORAL CONTRAST: No oral contrast ingested. RADIATION DOSE: 31.43 CTDIvol (mGy) ; Patient body habitus MEDICAL HISTORY : Cardiovascular disease. Deep venous thrombosis. Chronic obstructive pulmonary disease.MRSA. SURGICAL HISTORY : Appendectomy. Cholecystectomy.Pacemaker. ENCOUNTER: Initial ACUITY: 2 days PAIN SCALE: 9/10 LOCATION: diffuse abdomen. TECHNIQUE: Volumetric scanning of the abdomen and pelvis was performed. Using automated exposure control and ad justment of the mA and/or kV according to patient size, radiation dose was kept as low as reasonably achievable to obtain optimal diagnostic quality images. DICOM format image data is available electro nically for review and comparison. FINDINGS: LOWER LUNGS: The visualized lower lungs are clear. LIVER: Homogeneous density without lesion. There is no dilation of the biliary tree. Gallbladder surgically absent.. SPLEEN: Normal size without lesion. PANCREAS: Within normal limits. KIDNEYS: Tiny nonobstructing stones present bilaterally. Mild right hydronephrosis and hydroureter, however th is is considerably improved from previous. Innumerable tiny phleboliths in the low pelvis on both lena es. A tiny distal ureteral stone would be difficult to exclude. ADRENAL GLANDS: Within normal limits. VASCULAR: Vascular calcifications. Interventio filter in place. No evidence of aneurysm in BOWEL/MESENTERY: Previous gastric surgery. Small hiatal hernia. Moderate diffuse distention of the colon and mild dist ention of small bowel. Abundant formed stool present throughout the distal colon through to the rectu m. Mild induration in the perirectal and perisigmoid fat. Occasional diverticula. No evidence of extr aluminal gas or fluid. ABDOMINAL WALL: Within normal limits. RETROPERITONEUM: There is no lymphadenopathy. BLADDER: Decompressed with Hassan catheter in place REPRODUCTIVE: Uterus surgically absent. No evidence of pelvic mass or free fluid. INGUINAL: There is no lymphadenopathy or hernia. MUSCULOSKELETAL: Within normal limits for patient age. CONCLUSION: Abnormal appearance of the bowel consistent with severe ileus versus obstruction related to fecal imp action. Antonino Cerda MD on May 27, 2017 at 9:20 Board Certified Radiologist. This report was verified electronically.
[2017-05-27] MEDS ORDERED: cefTRIAXone INJ 1,000 MG in SODIUM CHLORIDE 0.9% INJ 100 ML IV ONE (10:00)
--- NOTE | 2017-05-27 10:09 | RADRPT ---
EXAM DATE/TIME: 05/27/2017 09:19 [facility] COMPARISON: CHEST SINGLE AP, March 24, 2017, 11:30. INDICATIONS : Short of breath, abdomen pains. MEDICAL HISTORY : Myocardial infarction. SURGICAL HISTORY : Pacemaker. Gastric bypass ENCOUNTER: Initial ACUITY: 3 days PAIN SCORE: 0/10 LOCATION: Bilateral chest FINDINGS: A single view of the chest demonstrates the lungs to be symmetrically aerated without evidence of mas s, infiltrate or effusion. Pacer in good position. Mild compensated cardiomegaly Osseous structures are intact. CONCLUSION: Mild compensated cardiomegaly without overt failure. Carl Salinas MD FACR on May 27, 2017 at 10:06 Board Certified Radiologist. This report was verified electronically.
[2017-05-27] MEDS ORDERED: POTASSIUM CHLORIDE 20 MEQ CONTROLLED RELEASE TAB PO ONE (10:45)
[2017-05-27] MEDS ORDERED: MACR100C2 PO (11:41)
[2017-05-27] MEDS ORDERED: MIRA3350 PO (11:41)
--- NOTE | 2017-05-27 12:57 | EKG ---
Date Performed: 05/27/2017 Time Performed: 09:16:43 PTAGE: 77 years EKG: ELECTRONIC VENTRICULAR PACEMAKER ABNORMAL RHYTHM ECG No significant change from prior elect rocardiogram. PREVIOUS TRACING : 07/30/2016 23.22 DOCTOR: Rajinder Ortiz Interpretating Date/Time 05/27/2017 12:55:06
[2017-05-27 15:55] VITALS: BP 156/78
== END 2017-05-27 16:03 | disposition home or self-care (01) ==
LOC: NEPE 08:00
DX: K59.00 Constipation, unspecified (principal); N39.0 Urinary tract infection, site not specified; R10.9 Unspecified abdominal pain; G89.4 Chronic pain syndrome; R94.31 Abnormal electrocardiogram [ECG] [EKG]; I51.7 Cardiomegaly; E66.01 Morbid (severe) obesity due to excess calories; I50.9 Heart failure, unspecified; E03.9 Hypothyroidism, unspecified
CPT/HCPCS: 51702; 71010; 74176; 80053; 81001; 83690; 84443; 84484; 85025; 85610; 93005; 96374; 96375; 99285; J0696; J2270; J2405

== ENCOUNTER 2017-11-22 12:26 | Emergency (ER) | payer MEDICARE, OTHER ==
[~2017-11-22] VITALS: Ht 157.5 cm; Wt 90.9 kg
[~2017-11-22 12:26] MED LIST changes: +MACR100C2 PO; +MIRA3350 PO; -ZYVO600T PO
[2017-11-22 12:34] VITALS: BP 147/73; PULSE 63; RESP 16; TEMP 98.3; O2SAT 96
[2017-11-22] MEDS ORDERED: ACETAMINOPHEN 325 MG TAB PO ONE (13:15)
[2017-11-22] MEDS ORDERED: ENEMENE5 PR (13:53)
[2017-11-22] MEDS ORDERED: CITRSOL4 PO (13:53)
[2017-11-22] MEDS ORDERED: D-MA50PO PO (13:53)
[2017-11-22] MEDS ORDERED: HYDR-3583 PO ×2 (13:53→14:20)
[2017-11-22] MEDS ORDERED: WARF-60 PO (13:53)
[2017-11-22] MEDS ORDERED: DULC10SU3 RECTAL (13:53)
[2017-11-22] MEDS ORDERED: ALBU0.63 NEB (13:53)
[2017-11-22] MEDS ORDERED: TYLE325T PO (13:53)
[2017-11-22] MEDS ORDERED: AMMO12LO TOPICAL (14:20)
[2017-11-22] MEDS ORDERED: LOPE-1 PO (14:20)
[2017-11-22] MEDS ORDERED: UMEC1INH INH (14:20)
[2017-11-22] MEDS ORDERED: VITA100T50 PO (14:23)
--- NOTE | 2017-11-22 15:08 | RADRPT ---
EXAM DATE: 11/22/2017 3:04 PM EDT AGE/SEX: 77 years / Female INDICATIONS: Trauma. CLINICAL DATA: This is the patient's initial encounter. Patient reports that signs and symptoms have been present for 1 day and indicates a pain score of 10/10. MEDICAL/SURGICAL HISTORY: . Myocardial infarction. . Pacemaker. Gastric bypass COMPARISON: None. FINDINGS: 2 views of the right ankle reveal an orthopedic plate with multiple anchoring screws involving the la teral cortical margin of the distal fibula. There is an acute fracture involving the distal tibial me tadiaphysis. No angulation or distraction. The fibula appears intact. Underlying osteopenia noted. An kle mortise is preserved. No soft tissue swelling or radiopaque foreign body observed. Plantar spurri ng. CONCLUSION: 1. Orthopedic plate involving the distal fibula. 2. Acute nondisplaced fracture involving the distal tibial metadiaphysis. Electronically signed by: Zachery Nicole MD 11/22/2017 3:06 PM EDT
--- NOTE | 2017-11-22 15:09 | RADRPT ---
EXAM DATE: 11/22/2017 3:02 PM EDT AGE/SEX: 77 years / Female INDICATIONS: Trauma. CLINICAL DATA: This is the patient's initial encounter. Patient reports that signs and symptoms have been present for 1 day and indicates a pain score of 6/10. MEDICAL/SURGICAL HISTORY: . Myocardial infarction . Pacemaker. Gastric bypass COMPARISON: None. FINDINGS: 2 views of the right shoulder show a high riding humeral head. Good internal and external rotation no robi. No fracture or dislocation observed. Degenerative changes involving the acromioclavicular joint. Soft tissues are unremarkable. CONCLUSION: 1. No acute fracture or dislocation. 2. Chronic rotator cuff injury. Electronically signed by: Zachery Nicole MD 11/22/2017 3:07 PM EDT
--- NOTE | 2017-11-22 15:11 | RADRPT ---
EXAM DATE: 11/22/2017 3:05 PM EDT AGE/SEX: 77 years / Female INDICATIONS: Trauma. CLINICAL DATA: This is the patient's initial encounter. Patient reports that signs and symptoms have been present for 1 day and indicates a pain score of 6/10. MEDICAL/SURGICAL HISTORY: . Myocardial infarction . Pacemaker. Gastric bypass COMPARISON: None . FINDINGS: 2 views left shoulder show a high riding humeral head. Chronic erosive changes involving the inferior portion of the acetabulum. No erosive changes involving the humeral head. Degenerative changes at th e AC joint. No acute fracture or dislocation. Left sided pacer device. Soft tissues are unremarkable. CONCLUSION: 1. No acute fracture or dislocation. 2. Chronic rotator cuff injury as detailed above. Electronically signed by: Zachery Nicole MD 11/22/2017 3:09 PM EDT
--- NOTE | 2017-11-22 15:31 | RADRPT ---
EXAM DATE: 11/22/2017 3:26 PM EDT AGE/SEX: 77 years / Female INDICATIONS: Trauma, fall today from chair. CLINICAL DATA: This is the patient's initial encounter. Patient reports that signs and symptoms have been present for 1 day and indicates a pain score of 5/10. MEDICAL/SURGICAL HISTORY: Deep venous thrombosis. Chronic obstructive pulmonary disease. Pacemaker . RADIATION DOSE: 32.92 CTDI (mGy) COMPARISON: CT brain 07/07/2015. TECHNIQUE: CT of the head without contrast. Using automated exposure control and adjustment of the mA and/or kV according to patient size, radiation dose was kept as low as reasonably achievable to ob tain optimal diagnostic quality images. FINDINGS: Cerebrum: Atrophy. The ventricles are normal for age. No evidence of midline shift, mass lesion, he morrhage or acute infarction. No extraaxial fluid collections are seen. Posterior Fossa: The cerebellum and brainstem are intact. The 4th ventricle is midline. The cerebe llopontine angle is unremarkable. Extracranial: The visualized portion of the orbits is intact. Skull: The calvaria is intact. Hyperostosis frontalis interna. No evidence of skull fracture. CONCLUSION: 1. No acute intracranial abnormality. Electronically signed by: Zachery Nicole MD 11/22/2017 3:30 PM EDT
--- NOTE | 2017-11-22 15:33 | RADRPT ---
EXAM DATE: 11/22/2017 3:28 PM EDT AGE/SEX: 77 years / Female INDICATIONS: Trauma, fall today from chair. CLINICAL DATA: This is the patient's initial encounter. Patient reports that signs and symptoms have been present for 1 day and indicates a pain score of 5/10. MEDICAL/SURGICAL HISTORY: Deep venous thrombosis. Chronic obstructive pulmonary disease. Fusio n, cervical. Pacemaker. RADIATION DOSE: 60.04 CTDI (mGy) COMPARISON: CT of the brain 11/22/2017. TECHNIQUE: Contiguous images in the axial and coronal planes were obtained using helical multirow de tector technique. Using automated exposure control and adjustment of the mA and/or kV according to p atient size, radiation dose was kept as low as reasonably achievable to obtain optimal diagnostic marilee lity images. FINDINGS: Orbits: The orbital and infraorbital osseous structures are intact. The retroconal structures have a normal configuration. No radiopaque foreign bodies are seen. Nasal Bone: The nasal bone and maxillary spine are intact. Zygomatic Arches: Symmetric without evidence of fracture. Sinuses: The maxillary, ethmoid, and frontal sinuses are intact. No air-fluid levels seen. Nasal Cavity: The nasal septum is intact and midline. The lacrimal ducts are intact. Soft Tissues: No radiopaque foreign bodies seen. No soft-tissue swelling is seen. Intracranial: No intracranial air seen. Cribriform Plate: Grossly intact. CONCLUSION: 1. Negative CT Facial Bones non contrast. Electronically signed by: Zachery Nicole MD 11/22/2017 3:31 PM EDT
[2017-11-22 15:39] VITALS: BP 174/96; PULSE 60; RESP 18; O2SAT 97
--- NOTE | 2017-11-22 15:47 | RADRPT ---
EXAM DATE: 11/22/2017 3:32 PM EDT AGE/SEX: 77 years / Female INDICATIONS: Trauma, fall from chair today. CLINICAL DATA: This is the patient's initial encounter. Patient reports that signs and symptoms have been present for 1 day and indicates a pain score of 7/10. MEDICAL/SURGICAL HISTORY: Deep venous thrombosis. Chronic obstructive pulmonary disease. Fusio n, cervical. Pacemaker. RADIATION DOSE: 30.65 CTDI (mGy) ; Patient body habitus COMPARISON: CT cervical spine 07/07/2015. TECHNIQUE: Contiguous axial images were obtained using helical multirow detector technique. The vol umetric data was post-processed with multiplanar reconstruction in oblique axial, sagittal, and coron al planes. Using automated exposure control and adjustment of the mA and/or kV according to patient s ize, radiation dose was kept as low as reasonably achievable to obtain optimal diagnostic quality michael ges. FINDINGS: Vertebrae: Anterior fusion plate involving C5-C6. Normal vertebral body height. Alignment: Minimal grade 1 anterolisthesis of C4 on C5 is unchanged.. Calcified atherosclerotic plaque involving the carotid arteries bilaterally. C2-3: The bony spinal canal is normal in size. No evidence of disc bulge or herniation. The neural foramina are bilaterally patent. C3-4: Mild broad-based disc osteophyte complex. Central canal remains patent. Bony uncovertebral hyp ertrophy generates bilateral neural foraminal narrowing. C4-5: The bony spinal canal is normal in size. No evidence of disc bulge or herniation. The neural foramina are bilaterally patent. C5-6: Fused anteriorly. Central canal is patent. Neural foramina on the right shows mild narrowing s econdary to bony uncovertebral hypertrophy. The left is patent.. C6-7: The bony spinal canal is normal in size. No evidence of disc bulge or herniation. The neural foramina are bilaterally patent. C7-T1: The bony spinal canal is normal in size. No evidence of disc bulge or herniation. The neura l foramina are bilaterally patent. CONCLUSION: 1. No acute abnormality. Electronically signed by: Zachery Nicole MD 11/22/2017 3:45 PM EDT
--- NOTE | 2017-11-22 17:32 | PD ---
HPI Chief Complaint: Fall Time Seen by Provider: 12:40 Travel History International Travel<30 days: No Contact w/Intl Traveler<30days: No Traveled to known affect area: No History of Present Illness HPI Patient is a 77 year old female who comes in after she fell out of her motorized wheelchair today. She says she leaned forward and she fell out. She complains of pain to her right ankle as well as her head. She also complains of pain to her shoulders. She denies any loss of consciousness. She was feeling in her normal state of health prior to the fall. She denies chest pain or shortness of breath. Severity is mild to moderate. 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 ) Cardiovascular Problems: Yes High Cholesterol: No Chemotherapy: No Chest Pain: No Congestive Heart Failure: Yes COPD: Yes Cerebrovascular Accident: No Coronary Artery Disease: Yes Diabetes: No Diminished Hearing: No Deep Vein Thrombosis: Yes Endocrine: Yes Gastrointestinal Disorders: Yes GERD: No Glaucoma: No Genitourinary: No Headaches: No Hepatitis: No Hiatal Hernia: No Heparin Induced Thrombocytopen: No Hypertension: No Immune Disorder: No Implanted Vascular Access Dvce: Yes Insomnia: Yes Kidney Stones: No Musculoskeletal: Yes Neurologic: Yes Psychiatric: Yes Reproductive: No Respiratory: Yes Immunizations Current: Yes Migraines: No Myocardial Infarction: No Radiation Therapy: No Renal Failure: No Seizures: No Sickle Cell Disease: No Sleep Apnea: Yes (CPAP) Thyroid Disease: Yes (HYPOTHYROID) Ulcer: No Tetanus Vaccination: < 5 Years PNEUMOCCOCAL Vaccine (Year): 2008 Menopausal: Yes Past Surgical History Abdominal Surgery: Yes (GASTRIC BYPASS THEN REVERSAL) AICD: No Appendectomy: Yes Arteriovenous Shunt: No Body Medical Devices: CERVICAL FUSION WITH INSTRUMENTATION, IVC FILTER Cardiac Surgery: No Cholecystectomy: Yes Ear Surgery: No Endocrine Surgery: No Eye Surgery: No Genitourinary Surgery: Yes Gynecologic Surgery: Yes Hysterectomy: Yes (OOPHERECTOMY ) Insulin Pump: No Joint Replacement: Yes (BILATERAL KNEE REPLACEMENT X 2) Neurologic Surgery: No Oral Surgery: No Pacemaker: Yes Thoracic Surgery: No Other Surgery: Yes (ABD GROWTH REMOVED-BENIGN, SPINAL FUSION) Social History Alcohol Use: No Tobacco Use: No Substance Use: No Allergies-Medications (Allergen,Severity, Reaction): Coded Allergies: diatrizoate meglumine (Unverified Allergy, Severe, HIVES, 11/22/17) gadobenic acid (Unverified Allergy, Severe, HIVES, 11/22/17) gadodiamide (Unverified Allergy, Severe, HIVES, 11/22/17) gadoteridol (Unverified Allergy, Severe, HIVES, 11/22/17) iodixanol (Unverified Allergy, Severe, HIVES, 11/22/17) iohexol (Unverified Allergy, Severe, HIVES, 11/22/17) penicillin G (Unverified Allergy, Severe, 11/22/17) Reported Meds & Prescriptions Reported Meds & Active Scripts Active Reported Vitamin K (Phytonadione) 100 Mcg Tab 100 Mcg PO DAILY Imodium A-D (Loperamide HCl) 2 Mg Capsule 2 Mg PO Q8HR PRN Ammonium Lactate (Lactic Acid (Ammonium Lactate)) 12% Lotn 1 Applic TOPICAL DAILY Incruse Ellipta Inh (Umeclidinium [place] Inh) 0.0625 Mg/Act Inh 1 Puff INH DAILY Hydrocodone-Acetaminophen 10-325 mg Tab 1 Tab PO TID Hydrocodone-Acetaminophen 10-325 mg Tab 1 Tab PO Q8HR PRN Enema Disposable (Sodium Phosphates) 19 Gram-7 Gram/118 Ml Eduarda 1 Applic [place] PRN Dulcolax Supp (Bisacodyl) 10 Mg Supp 10 Mg RECTAL DAILY PRN Citroma Liq (Magnesium Citrate) 300 Ml Liq 300 Ml PO IN THE AM PRN Albuterol Neb (Albuterol Sulfate) 0.63 Mg/3 Ml Neb 0.63 Mg NEB Q2HR NEB PRN Tylenol (Acetaminophen) 325 Mg Tab 650 Mg PO Q4H PRN Mannose (D-Mannose) 50 Gm Powder 2 Cap PO DAILY Warfarin 6 Mg Tab 6 Mg PO SUTUWEFRSA Take 1 tablet (6mg) daily every Thursday,Thursday,Thursday,Thursday and Thursday Viibryd (Vilazodone) 20 Mg Tab 20 Mg PO DAILY Zofran (Ondansetron HCl) 4 Mg Tab 4 Mg PO Q6HR PRN Promethazine Supp (Promethazine HCl) 25 Mg Supp 25 Mg RECTAL Q6H PRN Polyethylene Glycol 3350 Powder (Polyethylene Glycol) 17 Gram Pow 17 Gm PO DAILY Allergy Relief (Loratadine) 10 Mg Tab 10 Mg PO DAILY Xanax (Alprazolam) 0.5 Mg Tab 0.5 Mg PO TID Wellbutrin Xl 24 HR (Bupropion HCl) 300 Mg Tab 300 Mg PO DAILY K-Tab (Potassium Chloride) 10 Meq Tab 10 Meq PO BID Nystop Topical (Nystatin Topical) 100,000 Unit/Gm Powd 1 Applic TOPICAL BID Apply to groin and under breasts Milk of Josey Liq (Magnesium Hydroxide) 400 Mg/5 Ml Susp 30 Ml PO HS PRN Levothyroxine (Levothyroxine Sodium) 25 Mcg Tab 25 Mcg PO DAILY Lasix (Furosemide) 40 Mg Tab 40 Mg PO BID Warfarin 7.5 Mg Tab 7.5 Mg PO MOTH Take 1 tablet (7.5mg) daily every Thursday & Carvedilol 3.125 Mg Tab 3.125 Mg PO HS Tums Ultra 1000 (Calcium Carbonate (Antacid)) 1,000 Mg Chew 1,000 Mg CHEW Q8HR PRN Albuterol Neb (Albuterol Sulfate) 0.63 Mg/3 Ml Neb 0.63 Mg NEB TID NEB Review of Systems General / Constitutional: No: Fever, Chills HENT: Positive: Headaches Cardiovascular: No: Chest Pain or Discomfort Respiratory: No: Shortness of Breath Gastrointestinal: No: Nausea, Vomiting Musculoskeletal: Positive: Myalgias, Pain Skin: No Rash, No Change in Pigmentation Neurologic: No: Weakness, Dizziness Physical Exam Narrative GENERAL: Awake and alert, no acute distress. SKIN: Focused skin assessment warm/dry. No wounds or signs of infection. HEAD: Atraumatic. Normocephalic. EYES: Pupils equal and round. No scleral icterus. Extraocular movements intact. ENT: Mucous membranes pink and moist. NECK: Trachea midline. No JVD. CARDIOVASCULAR: Regular rate and rhythm. No murmur appreciated. RESPIRATORY: No accessory muscle use. Clear to auscultation. Breath sounds equal bilaterally. MUSCULOSKELETAL: No obvious deformities. No clubbing. No cyanosis. No edema. Tender to palpation of the right lower extremity. Pulses intact. Tender to palpation of both shoulders. No tenderness to palpation to either wrist. NEUROLOGICAL: Awake and alert. No obvious cranial nerve deficits. Motor grossly within normal limits. Normal speech. PSYCHIATRIC: Appropriate mood and affect; insight and judgment normal. Data Data Last Documented VS Vital Signs Date Time Temp Pulse Resp B/P (MAP) Pulse Ox O2 Delivery O2 Flow Rate FiO2 11/22/17 15:39 60 18 174/96 (122) 97 Room Air 11/22/17 12:[address] Brain W/O Iv Contrast(Rout) (11/22/17 ) Ct Cerv Spine W/O Contrast (11/22/17 ) Ct Facial Bones W/O Iv Cont (11/22/17 ) Shoulder, Complete (>2vws) (11/22/17 ) Shoulder, Complete (>2vws) (11/22/17 ) Ankle, Complete ([id number]) (11/22/17 ) Acetaminophen (Tylenol) (11/22/17 13:15) Splinting (11/22/17 ) Fiberglass Short Leg Splint Ad (11/22/17 ) Fiberglass Sugartong Sp Ad Sl (11/22/17 ) Acetamin-Hydrocod 325-5 Mg ([place] 5-325 (11/22/17 17:45) MDM Medical Decision Making Medical Screen Exam Complete: Yes Emergency Medical Condition: Yes Medical Record Reviewed: Yes Differential Diagnosis Leg fracture versus head injury versus shoulder injury Narrative Course Patient is a 77-year-old female who comes in after she fell out of her wheelchair. Exam shows pain to the right leg as well as both shoulders. CT head and C-spine performed show no acute abnormalities. CT of the facial bones shows no acute abnormalities. X-ray of the shoulder show no acute abnormalities. X-ray of the right tibia shows an acute fracture. I spoke with Dr. Keven rowe regarding the fracture since there is hardware in place. Since patient does not ambulate, she will be splinted and follow-up in the office. Patient regularly follows with Dr. Mullins, she would like to do this. She is advised follow-up in the next week. Given hydrocodone for pain, which she takes regularly. Discharged home, advised to return as needed for any worsening symptoms. Diagnosis Primary Impression: Tibia fracture Qualified Codes: S82.264A - Nondisplaced segmental fracture of shaft of right tibia, initial encounter for closed fracture Patient Instructions: General Instructions, Leg Fracture (ED) Additional Instructions: Follow-up with orthopedics. Take your pain medicine as needed. Return to the ED as needed for any worsening symptoms. Disposition: 03 DISCHARGE TO SNF Condition: Stable María Elena Tejada MD November 22, 2017 17:32
[2017-11-22] MEDS ORDERED: ACETAMINOPHEN/HYDROcodone 325 MG/5 MG TAB PO ONE (17:45)
== END 2017-11-22 18:51 ==
LOC: NEPC 12:26
DX: S82.264A Nondisplaced segmental fracture of shaft of right tibia, initial encounter for closed fracture (principal); M25.512 Pain in left shoulder; M25.511 Pain in right shoulder; R51 Headache; I48.91 Unspecified atrial fibrillation; V00.811A Fall from moving wheelchair (powered), initial encounter; Z79.01 Long term (current) use of anticoagulants
CPT/HCPCS: 29515; 70450; 70486; 72125; 73030; 73610

== ENCOUNTER 2018-01-26 03:19 | Inpatient (IN) ==
[2018-01-26] MEDS ORDERED: Vancomycin Inj 1 GM/200 ML PIGGYBACK IV.SIG ONE (03:37)
[2018-01-26] MEDS ORDERED: Piperacil/Tazo 3.375 GM Premix 50 ML IV.SIG ONE (03:38)
[2018-01-26] MEDS: Midazolam 50 MG/50 ML Inj 50 MG/50 ML BAG IV.CONT PRN ×2 (03:48→08:01)
[2018-01-26] MEDS: fentaNYL 10 mcg/mL Premix Drip 2,500 MCG/250 ML BAG IV.SIG PRN ×2 (03:49→16:03)
[2018-01-26 04:08] LABS: Baso # (Auto) 0.1 th/mm3 (0.0-0.2); Baso % (Auto) 0.8 % (0.0-2.0); Eos # (Auto) 0.3 th/mm3 (0.0-0.4); Eos % (Auto) 2.4 % (0.0-4.0); Hematocrit 42.3 % (35.0-46.0); Hemoglobin 13.7 gm/dL (11.6-15.3); Lymph # (Auto) 1.8 th/mm3 (1.0-4.8); Lymph % (Auto) 15.2 % (9.0-44.0); Mean Corpuscular HGB Conc 32.4 % (32.0-36.0); Mean Corpuscular Hemoglobin 29.3 pg (27.0-34.0); Mean Corpuscular Volume 90.5 fL (80.0-100.0); Mean Platelet Volume 9.4 fL (7.0-11.0); Mono # (Auto) 0.6 th/mm3 (0.0-0.9); Mono % (Auto) 5.2 % (0.0-8.0); Neut # (Auto) 8.9 th/mm3 (1.8-7.7); Neut % (Auto) 76.4 % (16.0-70.0); Platelet Count 199 th/mm3 (150-450); Red Blood Count 4.67 mil/mm3 (4.00-5.30); Red Cell Distribution Width 14.8 % (11.6-17.2); White Blood Count 11.7 th/mm3 (4.0-11.0)
--- NOTE | 2018-01-26 04:20 | XR ---
EXAM DATE: 01/26/2018 4:17 AM EDT AGE/SEX: 77 years / Female INDICATIONS: Respiratory failure. Status post intubation. CLINICAL DATA: This is the patient's initial encounter. Patient reports that signs and symptoms have been present for 1 day and indicates a pain score of Nonresponsive. MEDICAL/SURGICAL HISTORY: . Myocardial infarction. Pacemaker. Gastric bypass. [place] [facility] [place]. . FINDINGS: A single AP portable semierect view of the chest was obtained and demonstrates interval intubation wi th the endotracheal tube tip 2 cm above the sagar. A nasogastric tube is been placed and is seen cou rsing through the esophagus into the stomach. The left subclavian transvenous pacer remains in place. The heart size is moderately enlarged with no confluent infiltrates or effusions identified. The bon y thorax is intact. CONCLUSION: 1. Interval intubation. 2. Placement of nasogastric tube 3. Moderate cardiomegaly with no definite pulmonary edema. Electronically signed by: Eyad Mathis MD 01/26/2018 4:19 AM EDT
--- NOTE | 2018-01-26 04:23 | ED ---
HPI General Chief Complaint: Shortness of Breath/Dyspnea Stated Complaint: Resp Time Seen by Provider: 01/26/18 03:37 History of Present Illness Patient is a 77-year-old female who is in a nursing apparently they discovered that she was having difficulty breathing and then they thought that she was in cardiac arrest the longterm staff began to do CPR because the patient look like she was turning blue her lips she was ashen she uses CPAP at night and possibly there was a malfunction she has a history of COPD paramedics called the [facility] arrives to find the patient without a pulse with no respiratory effort and CPR but 1 minute was being started by the employees she seemed to respond to put on 2 L and then increase to 4 L of nasal cannula started to get ready for transport and then she would not respond her eyes were open and she stopped breathing they intubated her prior to leaving the longterm. Patient arrives unconscious intubated she had been given 4 of Versed and 20 of etomidate for the intubation and she is still unconscious unresponsive from the sedation when she arrives to the ER immediately do a bedside echo that shows good cardiac contractility her blood pressure is 170/70 heart rate is 60 she has a permanent pacemaker Related Data Allergies Allergy/AdvReac Type Severity Reaction Status Date / Time diatrizoate meglumine Allergy Severe HIVES Verified 01/26/18 03:29 gadobenic acid Allergy Severe HIVES Verified 01/26/18 03:29 gadodiamide Allergy Severe HIVES Verified 01/26/18 03:29 gadoteridol Allergy Severe HIVES Verified 01/26/18 03:29 iodixanol Allergy Severe HIVES Verified 01/26/18 03:29 iohexol Allergy Severe HIVES Verified 01/26/18 03:29 Review of Systems Except as stated in HPI: all other systems reviewed are negative [facility] Medical History Medical History Artificial pacemaker (Acute) Atrial fibrillation (Acute) CAD (coronary artery disease) (Acute) COPD (chronic obstructive pulmonary disease) (Acute) Cervical fusion syndrome (Acute) Chronic anticoagulation (Acute) Depression (Acute) HTN (hypertension) (Acute) Hypothyroidism (Acute) [place] (obstructive sleep apnea) (Acute) Obesity (Acute) 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) Surgical History Surgical History H/O bilateral oophorectomy (Acute) H/O gastric bypass (Acute) History of bilateral knee replacement (Acute) History of cholecystectomy (Acute) History of open reduction and internal fixation (ORIF) procedure (Acute) S/P appy (Acute) Family History Family History Mother No significant medical problems Brother Agent orange exposure Social History Social History Substance History: No History of Abuse Smoking Status: Former smoker Tobacco Type: Cigarettes Packs Per Day: 2 Cigarettes Per Day: 40.0 Smoking End Date: 1973 How Often Do You Have a Drink Containing Alcohol: Never Exam Narrative Exam Narrative: GENERAL: pt obtunded recently sedated 20 etomidate and 4 versed. not fighting the ET tube SKIN: Warm and dry. HEAD: Atraumatic. Normocephalic. EYES: Pupils equal and round. No scleral icterus. No injection or drainage. ENT: intubated NECK: Trachea midline. No JVD. CARDIOVASCULAR: Regular rate and rhythm. RESPIRATORY: No accessory muscle use. Clear to auscultation. Breath sounds equal bilaterally. Ausculated at axilla bilateral on arrival to confirm ET tube placed GASTROINTESTINAL: Abdomen mild obesity no BS in abdo MUSCULOSKELETAL: Extremities without clubbing, cyanosis, or edema. No obvious deformities. NEUROLOGICAL: sedated obtunded no obvious focal deficit but unable to do a neuro exam PSYCHIATRIC:unconscious sedated intubated Course Initial Documented Vital Signs Temperature 99.6 F 01/26/18 03:21 Pulse Rate 62 01/26/18 03:21 Respiratory Rate 20 01/26/18 03:21 Blood Pressure 170/78 H 01/26/18 03:21 Pulse Oximetry 100 01/26/18 03:21 Last Documented Vital Signs Temperature 98.9 F 01/28/18 04:00 Pulse Rate 60 01/28/18 15:04 Respiratory Rate 16 01/28/18 15:04 Blood Pressure 123/58 L 01/28/18 15:04 Pulse Oximetry 100 01/28/18 15:04 Critical Care Time Critical Care Time: Yes Total Critical Care Time: 30 Attestation: airway assessment and cardiac US bedside and sedattion for vent and ventilatory setting aadjustments 30 mins CC time Medical Decision Making MDM Narrative Medical decision making narrative: pt was intubated in field by [facility] pt had possible cardiac arrest and CPR [facility] by [facility] staff then [facility] arrived found a pulse but no resp effort , intubated then brought into ER , pt was later found to have no paper work that indicted she was a DNR but when her arrived her reported she was a DNR and was mildy upset that she had been intubated. pt awakes to see him , then we sedate her fentanyl versed and she is unconscious agagin and admitted to ICU Dr JOHNSON we search [facility] and it is written that she is a full code. pt stable vitals on vent sedated intubated ADMIT ICU resp failure possible brief cardiac arrest Differential Diagnosis Differential Diagnosis: COPD excerbation to resp arrest to cardiac arrest to possible PE or PTX or cardiac arrest due to arrhythmia or other Lab Data Result diagrams: 01/28/18 05:05 01/27/18 04:01 Lab Results 01/26/18 01/26/18 01/26/18 Range/Units 04:00 04:00 04:00 WBC 11.7 H (4.0-11.0) th/mm3 RBC 4.67 (4.00-5.30) mil/mm3 Hgb 13.7 (11.6-15.3) gm/dL POC Hgb (Calc) 13.6 (11.6-15.3) g/dL Hct 42.3 (35.0-46.0) % POC Hct 40.0 (35-46.0) % MCV 90.5 (80.0-100.0) fL MCH 29.3 (27.0-34.0) pg MCHC 32.4 (32.0-36.0) % RDW 14.8 (11.6-17.2) % Plt Count 199 (150-450) th/mm3 MPV 9.4 (7.0-11.0) fL Prelim Diff (Auto) Slide review pending Neut % (Auto) 76.4 H (16.0-70.0) % Lymph % (Auto) 15.2 (9.0-44.0) % [place] % (Auto) 5.2 (0.0-8.0) % Eos % (Auto) 2.4 (0.0-4.0) % Baso % (Auto) 0.8 (0.0-2.0) % Neut # (Auto) 8.9 H (1.8-7.7) th/mm3 Lymph # (Auto) 1.8 (1.0-4.8) th/mm3 [place] # (Auto) 0.6 (0.0-0.9) th/mm3 Eos # (Auto) 0.3 (0.0-0.4) th/mm3 Baso # (Auto) 0.1 (0.0-0.2) th/mm3 WBC Differential Manual diff final Seg Neuts % (Manual) 70 (16-70) % Band Neuts % (Manual) 11 H (0-6) % Lymphocytes % (Manual) 16 (9-44) % Monocytes % (Manual) 3 (0-8) % Abs Neuts (Manual) 9.5 H (1.8-7.7) th/mm3 Differential Comment . Platelet Estimate Normal (Normal) Platelet Morphology Normal (Normal) RBC Morphology Normal (Normal) PT (9.8-11.6) sec INR Ratio APTT (24.3-30.1) sec Puncture Site Patient Temperature O2 Saturation (90-100) % ABG pH (7.380-7.420) ABG pCO2 (38-42) mmHg ABG pO2 (61-120) mmHg ABG HCO3 (22-26) mmol/L ABG O2 Content (12.0-20.0) Vol % ABG Base Excess (-2-2) mmol/L ABG Methemoglobin (0-2) % Manny Test Hemoglobin (12.0-16.0) G/DL Carboxyhemoglobin (0-4) % O2 Delivery Device Vent Setting Inspired O2 % Critical Value POC Sodium 140 (137-144) mmol/L Sodium 141 (136-145) meq/L POC Potassium 4.6 (3.6-5.0) mmol/L Potassium 4.6 (3.5-5.1) meq/L POC Chloride 104 (102-111) mmol/L Chloride 106 (98-107) meq/L Carbon Dioxide 24.5 (21.0-32.0) meq/L Anion Gap 11 (5-15) meq/L POC BUN 26 H (5-21) mg/dL BUN 21 H (7-18) mg/dL Creatinine 1.22 H (0.50-1.00) mg/dL POC Creatinine 1.2 (0.6-1.3) mg/dL Estimated GFR 43 L (>89) mL/min POC Glucose 193 H (68-110) mg/dL Random Glucose 191 H (74-106) mg/dL Lactic Acid 3.7 H (0.4-2.0) mmol/L Calcium 8.5 (8.5-10.1) mg/dL Phosphorus (2.5-4.9) mg/dL Magnesium (1.5-2.5) mg/dL Total Bilirubin 0.6 (0.2-1.0) mg/dL AST 52 H (15-37) U/L ALT 34 (10-53) U/L Alkaline Phosphatase 111 (45-117) U/L Troponin I Less than 0.02 L (0.02-0.05) ng/mL Total Protein 7.1 (6.4-8.2) g/dL Albumin 3.2 L (3.4-5.0) g/dL TSH (0.358-3.740) uIU/mL Urine Color (Yellw/Straw) Urine Clarity (Clear) Urine pH (5.0-8.5) Ur Specific [place] (1.002-1.035) Urine Protein (Neg-Trace) mg/dL Urine Glucose (UA) (Negative) mg/dL Urine Ketones (Negative) mg/dL Urine Occult Blood (Negative) Urine Nitrate (Negative) Urine Bilirubin (Negative) Urine Urobilinogen (Less than 2) mg/dL Ur Leukocyte Esterase (Negative) Urine RBC (0-3) /hpf Urine WBC (0-5) /hpf Ur Squamous Epith Cells (0-5) /hpf Urine Bacteria (None) /hpf Hyaline Casts (0-3) /lpf Granular Casts (None) /lpf Urine Mucus (Occasional) /lpf Nasal Screen MRSA (PCR) (Negative) 01/26/18 01/26/18 01/26/18 Range/Units 04:10 04:18 05:45 WBC (4.0-11.0) th/mm3 RBC (4.00-5.30) mil/mm3 Hgb (11.6-15.3) gm/dL POC Hgb (Calc) (11.6-15.3) g/dL Hct (35.0-46.0) % POC Hct (35-46.0) % MCV (80.0-100.0) fL MCH (27.0-34.0) pg MCHC (32.0-36.0) % RDW (11.6-17.2) % Plt Count (150-450) th/mm3 MPV (7.0-11.0) fL Prelim Diff (Auto) Neut % (Auto) (16.0-70.0) % Lymph % (Auto) (9.0-44.0) % [place] % (Auto) (0.0-8.0) % Eos % (Auto) (0.0-4.0) % Baso % (Auto) (0.0-2.0) % Neut # (Auto) (1.8-7.7) th/mm3 Lymph # (Auto) (1.0-4.8) th/mm3 [place] # (Auto) (0.0-0.9) th/mm3 Eos # (Auto) (0.0-0.4) th/mm3 Baso # (Auto) (0.0-0.2) th/mm3 WBC Differential Seg Neuts % (Manual) (16-70) % Band Neuts % (Manual) (0-6) % Lymphocytes % (Manual) (9-44) % Monocytes % (Manual) (0-8) % Abs Neuts (Manual) (1.8-7.7) th/mm3 Differential Comment Platelet Estimate (Normal) Platelet Morphology (Normal) RBC Morphology (Normal) PT 12.5 H (9.8-11.6) sec INR 1.2 Ratio APTT 27.8 (24.3-30.1) sec Puncture Site Left radial Patient Temperature 98.6 O2 Saturation 98 (90-100) % ABG pH 7.35 L (7.380-7.420) ABG pCO2 45 H (38-42) mmHg ABG pO2 335 H (61-120) mmHg ABG HCO3 24 (22-26) mmol/L ABG O2 Content 18.6 (12.0-20.0) Vol % ABG Base Excess -0.4 (-2-2) mmol/L ABG Methemoglobin 0.6 (0-2) % Manny Test Present Hemoglobin 12.9 (12.0-16.0) G/DL Carboxyhemoglobin 0.9 (0-4) % O2 Delivery Device Ventilator Vent Setting Prvc/ac Inspired O2 100 % Critical Value No POC Sodium (137-144) mmol/L Sodium (136-145) meq/L POC Potassium (3.6-5.0) mmol/L Potassium (3.5-5.1) meq/L POC Chloride (102-111) mmol/L Chloride (98-107) meq/L Carbon Dioxide (21.0-32.0) meq/L Anion Gap (5-15) meq/L POC BUN (5-21) mg/dL BUN (7-18) mg/dL Creatinine (0.50-1.00) mg/dL POC Creatinine (0.6-1.3) mg/dL Estimated GFR (>89) mL/min POC Glucose (68-110) mg/dL Random Glucose (74-106) mg/dL Lactic Acid (0.4-2.0) mmol/L Calcium (8.5-10.1) mg/dL Phosphorus (2.5-4.9) mg/dL Magnesium (1.5-2.5) mg/dL Total Bilirubin (0.2-1.0) mg/dL AST (15-37) U/L ALT (10-53) U/L Alkaline Phosphatase (45-117) U/L Troponin I (0.02-0.05) ng/mL Total Protein (6.4-8.2) g/dL Albumin (3.4-5.0) g/dL TSH (0.358-3.740) uIU/mL Urine Color Yellow (Yellw/Straw) Urine Clarity Hazy H (Clear) Urine pH 5.0 (5.0-8.5) Ur Specific [place] 1.013 (1.002-1.035) Urine Protein 30 H (Neg-Trace) mg/dL Urine Glucose (UA) Negative (Negative) mg/dL Urine Ketones Negative (Negative) mg/dL Urine Occult Blood Negative (Negative) Urine Nitrate Positive H (Negative) Urine Bilirubin Negative (Negative) Urine Urobilinogen Less than 2 (Less than 2) mg/dL Ur Leukocyte Esterase Small H (Negative) Urine RBC 2 (0-3) /hpf Urine WBC 21 H (0-5) /hpf Ur Squamous Epith Cells 1 (0-5) /hpf Urine Bacteria Many H (None) /hpf Hyaline Casts 19 (0-3) /lpf Granular Casts 3 (None) /lpf Urine Mucus Few H (Occasional) /lpf Nasal Screen MRSA (PCR) (Negative) 01/26/18 01/26/18 01/26/18 Range/Units 08:00 11:58 12:00 WBC (4.0-11.0) th/mm3 RBC (4.00-5.30) mil/mm3 Hgb (11.6-15.3) gm/dL POC Hgb (Calc) (11.6-15.3) g/dL Hct (35.0-46.0) % POC Hct (35-46.0) % MCV (80.0-100.0) fL MCH (27.0-34.0) pg MCHC (32.0-36.0) % RDW (11.6-17.2) % Plt Count (150-450) th/mm3 MPV (7.0-11.0) fL Prelim Diff (Auto) Neut % (Auto) (16.0-70.0) % Lymph % (Auto) (9.0-44.0) % [place] % (Auto) (0.0-8.0) % Eos % (Auto) (0.0-4.0) % Baso % (Auto) (0.0-2.0) % Neut # (Auto) (1.8-7.7) th/mm3 Lymph # (Auto) (1.0-4.8) th/mm3 [place] # (Auto) (0.0-0.9) th/mm3 Eos # (Auto) (0.0-0.4) th/mm3 Baso # (Auto) (0.0-0.2) th/mm3 WBC Differential Seg Neuts % (Manual) (16-70) % Band Neuts % (Manual) (0-6) % Lymphocytes % (Manual) (9-44) % Monocytes % (Manual) (0-8) % Abs Neuts (Manual) (1.8-7.7) th/mm3 Differential Comment Platelet Estimate (Normal) Platelet Morphology (Normal) RBC Morphology (Normal) PT (9.8-11.6) sec INR Ratio APTT (24.3-30.1) sec Puncture Site Patient Temperature O2 Saturation (90-100) % ABG pH (7.380-7.420) ABG pCO2 (38-42) mmHg ABG pO2 (61-120) mmHg ABG HCO3 (22-26) mmol/L ABG O2 Content (12.0-20.0) Vol % ABG Base Excess (-2-2) mmol/L ABG Methemoglobin (0-2) % Manny Test Hemoglobin (12.0-16.0) G/DL Carboxyhemoglobin (0-4) % O2 Delivery Device Vent Setting Inspired O2 % Critical Value POC Sodium (137-144) mmol/L Sodium (136-145) meq/L POC Potassium (3.6-5.0) mmol/L Potassium (3.5-5.1) meq/L POC Chloride (102-111) mmol/L Chloride (98-107) meq/L Carbon Dioxide (21.0-32.0) meq/L Anion Gap (5-15) meq/L POC BUN (5-21) mg/dL BUN (7-18) mg/dL Creatinine (0.50-1.00) mg/dL POC Creatinine (0.6-1.3) mg/dL Estimated GFR (>89) mL/min POC Glucose 97 (68-110) mg/dL Random Glucose (74-106) mg/dL Lactic Acid 2.3 H (0.4-2.0) mmol/L Calcium (8.5-10.1) mg/dL Phosphorus (2.5-4.9) mg/dL Magnesium (1.5-2.5) mg/dL Total Bilirubin (0.2-1.0) mg/dL AST (15-37) U/L ALT (10-53) U/L Alkaline Phosphatase (45-117) U/L Troponin I (0.02-0.05) ng/mL Total Protein (6.4-8.2) g/dL Albumin (3.4-5.0) g/dL TSH (0.358-3.740) uIU/mL Urine Color (Yellw/Straw) Urine Clarity (Clear) Urine pH (5.0-8.5) Ur Specific [place] (1.002-1.035) Urine Protein (Neg-Trace) mg/dL Urine Glucose (UA) (Negative) mg/dL Urine Ketones (Negative) mg/dL Urine Occult Blood (Negative) Urine Nitrate (Negative) Urine Bilirubin (Negative) Urine Urobilinogen (Less than 2) mg/dL Ur Leukocyte Esterase (Negative) Urine RBC (0-3) /hpf Urine WBC (0-5) /hpf Ur Squamous Epith Cells (0-5) /hpf Urine Bacteria (None) /hpf Hyaline Casts (0-3) /lpf Granular Casts (None) /lpf Urine Mucus (Occasional) /lpf Nasal Screen MRSA (PCR) Mrsa detected (Negative) 01/26/18 01/26/18 01/26/18 Range/Units 12:00 12:00 12:00 WBC 10.8 (4.0-11.0) th/mm3 RBC 4.32 (4.00-5.30) mil/mm3 Hgb 13.0 (11.6-15.3) gm/dL POC Hgb (Calc) (11.6-15.3) g/dL Hct 39.3 (35.0-46.0) % POC Hct (35-46.0) % MCV 90.9 (80.0-100.0) fL MCH 30.0 (27.0-34.0) pg MCHC 33.0 (32.0-36.0) % RDW 14.7 (11.6-17.2) % Plt Count 153 (150-450) th/mm3 MPV 9.0 (7.0-11.0) fL Prelim Diff (Auto) Neut % (Auto) (16.0-70.0) % Lymph % (Auto) (9.0-44.0) % [place] % (Auto) (0.0-8.0) % Eos % (Auto) (0.0-4.0) % Baso % (Auto) (0.0-2.0) % Neut # (Auto) (1.8-7.7) th/mm3 Lymph # (Auto) (1.0-4.8) th/mm3 [place] # (Auto) (0.0-0.9) th/mm3 Eos # (Auto) (0.0-0.4) th/mm3 Baso # (Auto) (0.0-0.2) th/mm3 WBC Differential Seg Neuts % (Manual) (16-70) % Band Neuts % (Manual) (0-6) % Lymphocytes % (Manual) (9-44) % Monocytes % (Manual) (0-8) % Abs Neuts (Manual) (1.8-7.7) th/mm3 Differential Comment Platelet Estimate (Normal) Platelet Morphology (Normal) RBC Morphology (Normal) PT 13.0 H (9.8-11.6) sec INR 1.3 Ratio APTT 24.4 (24.3-30.1) sec Puncture Site Patient Temperature O2 Saturation (90-100) % ABG pH (7.380-7.420) ABG pCO2 (38-42) mmHg ABG pO2 (61-120) mmHg ABG HCO3 (22-26) mmol/L ABG O2 Content (12.0-20.0) Vol % ABG Base Excess (-2-2) mmol/L ABG Methemoglobin (0-2) % Manny Test Hemoglobin (12.0-16.0) G/DL Carboxyhemoglobin (0-4) % O2 Delivery Device Vent Setting Inspired O2 % Critical Value POC Sodium (137-144) mmol/L Sodium (136-145) meq/L POC Potassium (3.6-5.0) mmol/L Potassium (3.5-5.1) meq/L POC Chloride (102-111) mmol/L Chloride (98-107) meq/L Carbon Dioxide (21.0-32.0) meq/L Anion Gap (5-15) meq/L POC BUN (5-21) mg/dL BUN (7-18) mg/dL Creatinine (0.50-1.00) mg/dL POC Creatinine (0.6-1.3) mg/dL Estimated GFR (>89) mL/min POC Glucose (68-110) mg/dL Random Glucose (74-106) mg/dL Lactic Acid (0.4-2.0) mmol/L Calcium (8.5-10.1) mg/dL Phosphorus (2.5-4.9) mg/dL Magnesium (1.5-2.5) mg/dL Total Bilirubin (0.2-1.0) mg/dL AST (15-37) U/L ALT (10-53) U/L Alkaline Phosphatase (45-117) U/L Troponin I 0.29 H D (0.02-0.05) ng/mL Total Protein (6.4-8.2) g/dL Albumin (3.4-5.0) g/dL TSH (0.358-3.740) uIU/mL Urine Color (Yellw/Straw) Urine Clarity (Clear) Urine pH (5.0-8.5) Ur Specific [place] (1.002-1.035) Urine Protein (Neg-Trace) mg/dL Urine Glucose (UA) (Negative) mg/dL Urine Ketones (Negative) mg/dL Urine Occult Blood (Negative) Urine Nitrate (Negative) Urine Bilirubin (Negative) Urine Urobilinogen (Less than 2) mg/dL Ur Leukocyte Esterase (Negative) Urine RBC (0-3) /hpf Urine WBC (0-5) /hpf Ur Squamous Epith Cells (0-5) /hpf Urine Bacteria (None) /hpf Hyaline Casts (0-3) /lpf Granular Casts (None) /lpf Urine Mucus (Occasional) /lpf Nasal Screen MRSA (PCR) (Negative) 01/26/18 01/26/18 01/26/18 Range/Units 12:00 16:05 20:47 WBC (4.0-11.0) th/mm3 RBC (4.00-5.30) mil/mm3 Hgb (11.6-15.3) gm/dL POC Hgb (Calc) (11.6-15.3) g/dL Hct (35.0-46.0) % POC Hct (35-46.0) % MCV (80.0-100.0) fL MCH (27.0-34.0) pg MCHC (32.0-36.0) % RDW (11.6-17.2) % Plt Count (150-450) th/mm3 MPV (7.0-11.0) fL Prelim Diff (Auto) Neut % (Auto) (16.0-70.0) % Lymph % (Auto) (9.0-44.0) % [place] % (Auto) (0.0-8.0) % Eos % (Auto) (0.0-4.0) % Baso % (Auto) (0.0-2.0) % Neut # (Auto) (1.8-7.7) th/mm3 Lymph # (Auto) (1.0-4.8) th/mm3 [place] # (Auto) (0.0-0.9) th/mm3 Eos # (Auto) (0.0-0.4) th/mm3 Baso # (Auto) (0.0-0.2) th/mm3 WBC Differential Seg Neuts % (Manual) (16-70) % Band Neuts % (Manual) (0-6) % Lymphocytes % (Manual) (9-44) % Monocytes % (Manual) (0-8) % Abs Neuts (Manual) (1.8-7.7) th/mm3 Differential Comment Platelet Estimate (Normal) Platelet Morphology (Normal) RBC Morphology (Normal) PT (9.8-11.6) sec INR Ratio APTT 218.0 H* D (24.3-30.1) sec Puncture Site Patient Temperature O2 Saturation (90-100) % ABG pH (7.380-7.420) ABG pCO2 (38-42) mmHg ABG pO2 (61-120) mmHg ABG HCO3 (22-26) mmol/L ABG O2 Content (12.0-20.0) Vol % ABG Base Excess (-2-2) mmol/L ABG Methemoglobin (0-2) % Manny Test Hemoglobin (12.0-16.0) G/DL Carboxyhemoglobin (0-4) % O2 Delivery Device Vent Setting Inspired O2 % Critical Value POC Sodium (137-144) mmol/L Sodium (136-145) meq/L POC Potassium (3.6-5.0) mmol/L Potassium (3.5-5.1) meq/L POC Chloride (102-111) mmol/L Chloride (98-107) meq/L Carbon Dioxide (21.0-32.0) meq/L Anion Gap (5-15) meq/L POC BUN (5-21) mg/dL BUN (7-18) mg/dL Creatinine (0.50-1.00) mg/dL POC Creatinine (0.6-1.3) mg/dL Estimated GFR (>89) mL/min POC Glucose (68-110) mg/dL Random Glucose (74-106) mg/dL Lactic Acid (0.4-2.0) mmol/L Calcium (8.5-10.1) mg/dL Phosphorus (2.5-4.9) mg/dL Magnesium (1.5-2.5) mg/dL Total Bilirubin (0.2-1.0) mg/dL AST (15-37) U/L ALT (10-53) U/L Alkaline Phosphatase (45-117) U/L Troponin I 0.21 H (0.02-0.05) ng/mL Total Protein (6.4-8.2) g/dL Albumin (3.4-5.0) g/dL TSH 1.550 (0.358-3.740) uIU/mL Urine Color (Yellw/Straw) Urine Clarity (Clear) Urine pH (5.0-8.5) Ur Specific [place] (1.002-1.035) Urine Protein (Neg-Trace) mg/dL Urine Glucose (UA) (Negative) mg/dL Urine Ketones (Negative) mg/dL Urine Occult Blood (Negative) Urine Nitrate (Negative) Urine Bilirubin (Negative) Urine Urobilinogen (Less than 2) mg/dL Ur Leukocyte Esterase (Negative) Urine RBC (0-3) /hpf Urine WBC (0-5) /hpf Ur Squamous Epith Cells (0-5) /hpf Urine Bacteria (None) /hpf Hyaline Casts (0-3) /lpf Granular Casts (None) /lpf Urine Mucus (Occasional) /lpf Nasal Screen MRSA (PCR) (Negative) 01/26/18 01/27/18 01/27/18 Range/Units 23:10 00:04 01:10 WBC (4.0-11.0) th/mm3 RBC (4.00-5.30) mil/mm3 Hgb (11.6-15.3) gm/dL POC Hgb (Calc) (11.6-15.3) g/dL Hct (35.0-46.0) % POC Hct (35-46.0) % MCV (80.0-100.0) fL MCH (27.0-34.0) pg MCHC (32.0-36.0) % RDW (11.6-17.2) % Plt Count (150-450) th/mm3 MPV (7.0-11.0) fL Prelim Diff (Auto) Neut % (Auto) (16.0-70.0) % Lymph % (Auto) (9.0-44.0) % [place] % (Auto) (0.0-8.0) % Eos % (Auto) (0.0-4.0) % Baso % (Auto) (0.0-2.0) % Neut # (Auto) (1.8-7.7) th/mm3 Lymph # (Auto) (1.0-4.8) th/mm3 [place] # (Auto) (0.0-0.9) th/mm3 Eos # (Auto) (0.0-0.4) th/mm3 Baso # (Auto) (0.0-0.2) th/mm3 WBC Differential Seg Neuts % (Manual) (16-70) % Band Neuts % (Manual) (0-6) % Lymphocytes % (Manual) (9-44) % Monocytes % (Manual) (0-8) % Abs Neuts (Manual) (1.8-7.7) th/mm3 Differential Comment Platelet Estimate (Normal) Platelet Morphology (Normal) RBC Morphology (Normal) PT (9.8-11.6) sec INR Ratio APTT 61.5 H D 38.3 H D (24.3-30.1) sec Puncture Site Patient Temperature O2 Saturation (90-100) % ABG pH (7.380-7.420) ABG pCO2 (38-42) mmHg ABG pO2 (61-120) mmHg ABG HCO3 (22-26) mmol/L ABG O2 Content (12.0-20.0) Vol % ABG Base Excess (-2-2) mmol/L ABG Methemoglobin (0-2) % Manny Test Hemoglobin (12.0-16.0) G/DL Carboxyhemoglobin (0-4) % O2 Delivery Device Vent Setting Inspired O2 % Critical Value POC Sodium (137-144) mmol/L Sodium (136-145) meq/L POC Potassium (3.6-5.0) mmol/L Potassium (3.5-5.1) meq/L POC Chloride (102-111) mmol/L Chloride (98-107) meq/L Carbon Dioxide (21.0-32.0) meq/L Anion Gap (5-15) meq/L POC BUN (5-21) mg/dL BUN (7-18) mg/dL Creatinine (0.50-1.00) mg/dL POC Creatinine (0.6-1.3) mg/dL Estimated GFR (>89) mL/min POC Glucose 115 H (68-110) mg/dL Random Glucose (74-106) mg/dL Lactic Acid (0.4-2.0) mmol/L Calcium (8.5-10.1) mg/dL Phosphorus (2.5-4.9) mg/dL Magnesium (1.5-2.5) mg/dL Total Bilirubin (0.2-1.0) mg/dL AST (15-37) U/L ALT (10-53) U/L Alkaline Phosphatase (45-117) U/L Troponin I (0.02-0.05) ng/mL Total Protein (6.4-8.2) g/dL Albumin (3.4-5.0) g/dL TSH (0.358-3.740) uIU/mL Urine Color (Yellw/Straw) Urine Clarity (Clear) Urine pH (5.0-8.5) Ur Specific [place] (1.002-1.035) Urine Protein (Neg-Trace) mg/dL Urine Glucose (UA) (Negative) mg/dL Urine Ketones (Negative) mg/dL Urine Occult Blood (Negative) Urine Nitrate (Negative) Urine Bilirubin (Negative) Urine Urobilinogen (Less than 2) mg/dL Ur Leukocyte Esterase (Negative) Urine RBC (0-3) /hpf Urine WBC (0-5) /hpf Ur Squamous Epith Cells (0-5) /hpf Urine Bacteria (None) /hpf Hyaline Casts (0-3) /lpf Granular Casts (None) /lpf Urine Mucus (Occasional) /lpf Nasal Screen MRSA (PCR) (Negative) 01/27/18 01/27/18 01/27/18 Range/Units 01:10 04:01 04:01 WBC 6.0 (4.0-11.0) th/mm3 RBC 3.92 L (4.00-5.30) mil/mm3 Hgb 11.6 (11.6-15.3) gm/dL POC Hgb (Calc) (11.6-15.3) g/dL Hct 35.2 (35.0-46.0) % POC Hct (35-46.0) % MCV 89.9 (80.0-100.0) fL MCH 29.7 (27.0-34.0) pg MCHC 33.0 (32.0-36.0) % RDW 14.6 (11.6-17.2) % Plt Count 129 L (150-450) th/mm3 MPV 9.4 (7.0-11.0) fL Prelim Diff (Auto) Neut % (Auto) 63.9 (16.0-70.0) % Lymph % (Auto) 22.1 (9.0-44.0) % [place] % (Auto) 10.9 H (0.0-8.0) % Eos % (Auto) 2.6 (0.0-4.0) % Baso % (Auto) 0.5 (0.0-2.0) % Neut # (Auto) 3.8 (1.8-7.7) th/mm3 Lymph # (Auto) 1.3 (1.0-4.8) th/mm3 [place] # (Auto) 0.7 (0.0-0.9) th/mm3 Eos # (Auto) 0.2 (0.0-0.4) th/mm3 Baso # (Auto) 0.0 (0.0-0.2) th/mm3 WBC Differential . Seg Neuts % (Manual) (16-70) % Band Neuts % (Manual) (0-6) % Lymphocytes % (Manual) (9-44) % Monocytes % (Manual) (0-8) % Abs Neuts (Manual) (1.8-7.7) th/mm3 Differential Comment Auto diff final Platelet Estimate (Normal) Platelet Morphology (Normal) RBC Morphology (Normal) PT 13.5 H (9.8-11.6) sec INR 1.3 Ratio APTT (24.3-30.1) sec Puncture Site Patient Temperature O2 Saturation (90-100) % ABG pH (7.380-7.420) ABG pCO2 (38-42) mmHg ABG pO2 (61-120) mmHg ABG HCO3 (22-26) mmol/L ABG O2 Content (12.0-20.0) Vol % ABG Base Excess (-2-2) mmol/L ABG Methemoglobin (0-2) % Manny Test Hemoglobin (12.0-16.0) G/DL Carboxyhemoglobin (0-4) % O2 Delivery Device Vent Setting Inspired O2 % Critical Value POC Sodium (137-144) mmol/L Sodium 145 (136-145) meq/L POC Potassium (3.6-5.0) mmol/L Potassium 3.5 D (3.5-5.1) meq/L POC Chloride (102-111) mmol/L Chloride 108 H (98-107) meq/L Carbon Dioxide 27.9 (21.0-32.0) meq/L Anion Gap 9 (5-15) meq/L POC BUN (5-21) mg/dL BUN 29 H (7-18) mg/dL Creatinine 1.39 H (0.50-1.00) mg/dL POC Creatinine (0.6-1.3) mg/dL Estimated GFR 37 L (>89) mL/min POC Glucose (68-110) mg/dL Random Glucose 95 (74-106) mg/dL Lactic Acid (0.4-2.0) mmol/L Calcium 8.8 (8.5-10.1) mg/dL Phosphorus 3.2 (2.5-4.9) mg/dL Magnesium 2.0 (1.5-2.5) mg/dL Total Bilirubin 1.4 H (0.2-1.0) mg/dL AST 35 (15-37) U/L ALT 30 (10-53) U/L Alkaline Phosphatase 97 (45-117) U/L Troponin I (0.02-0.05) ng/mL Total Protein 6.1 L D (6.4-8.2) g/dL Albumin 2.7 L (3.4-5.0) g/dL TSH (0.358-3.740) uIU/mL Urine Color (Yellw/Straw) Urine Clarity (Clear) Urine pH (5.0-8.5) Ur Specific [place] (1.002-1.035) Urine Protein (Neg-Trace) mg/dL Urine Glucose (UA) (Negative) mg/dL Urine Ketones (Negative) mg/dL Urine Occult Blood (Negative) Urine Nitrate (Negative) Urine Bilirubin (Negative) Urine Urobilinogen (Less than 2) mg/dL Ur Leukocyte Esterase (Negative) Urine RBC (0-3) /hpf Urine WBC (0-5) /hpf Ur Squamous Epith Cells (0-5) /hpf Urine Bacteria (None) /hpf Hyaline Casts (0-3) /lpf Granular Casts (None) /lpf Urine Mucus (Occasional) /lpf Nasal Screen MRSA (PCR) (Negative) 01/27/18 01/27/18 01/27/18 Range/Units 05:16 11:41 11:55 WBC (4.0-11.0) th/mm3 RBC (4.00-5.30) mil/mm3 Hgb (11.6-15.3) gm/dL POC Hgb (Calc) (11.6-15.3) g/dL Hct (35.0-46.0) % POC Hct (35-46.0) % MCV (80.0-100.0) fL MCH (27.0-34.0) pg MCHC (32.0-36.0) % RDW (11.6-17.2) % Plt Count (150-450) th/mm3 MPV (7.0-11.0) fL Prelim Diff (Auto) Neut % (Auto) (16.0-70.0) % Lymph % (Auto) (9.0-44.0) % [place] % (Auto) (0.0-8.0) % Eos % (Auto) (0.0-4.0) % Baso % (Auto) (0.0-2.0) % Neut # (Auto) (1.8-7.7) th/mm3 Lymph # (Auto) (1.0-4.8) th/mm3 [place] # (Auto) (0.0-0.9) th/mm3 Eos # (Auto) (0.0-0.4) th/mm3 Baso # (Auto) (0.0-0.2) th/mm3 WBC Differential Seg Neuts % (Manual) (16-70) % Band Neuts % (Manual) (0-6) % Lymphocytes % (Manual) (9-44) % Monocytes % (Manual) (0-8) % Abs Neuts (Manual) (1.8-7.7) th/mm3 Differential Comment Platelet Estimate (Normal) Platelet Morphology (Normal) RBC Morphology (Normal) PT (9.8-11.6) sec INR Ratio APTT 64.3 H D (24.3-30.1) sec Puncture Site Patient Temperature O2 Saturation (90-100) % ABG pH (7.380-7.420) ABG pCO2 (38-42) mmHg ABG pO2 (61-120) mmHg ABG HCO3 (22-26) mmol/L ABG O2 Content (12.0-20.0) Vol % ABG Base Excess (-2-2) mmol/L ABG Methemoglobin (0-2) % Manny Test Hemoglobin (12.0-16.0) G/DL Carboxyhemoglobin (0-4) % O2 Delivery Device Vent Setting Inspired O2 % Critical Value POC Sodium (137-144) mmol/L Sodium (136-145) meq/L POC Potassium (3.6-5.0) mmol/L Potassium (3.5-5.1) meq/L POC Chloride (102-111) mmol/L Chloride (98-107) meq/L Carbon Dioxide (21.0-32.0) meq/L Anion Gap (5-15) meq/L POC BUN (5-21) mg/dL BUN (7-18) mg/dL Creatinine (0.50-1.00) mg/dL POC Creatinine (0.6-1.3) mg/dL Estimated GFR (>89) mL/min POC Glucose 106 120 H (68-110) mg/dL Random Glucose (74-106) mg/dL Lactic Acid (0.4-2.0) mmol/L Calcium (8.5-10.1) mg/dL Phosphorus (2.5-4.9) mg/dL Magnesium (1.5-2.5) mg/dL Total Bilirubin (0.2-1.0) mg/dL AST (15-37) U/L ALT (10-53) U/L Alkaline Phosphatase (45-117) U/L Troponin I (0.02-0.05) ng/mL Total Protein (6.4-8.2) g/dL Albumin (3.4-5.0) g/dL TSH (0.358-3.740) uIU/mL Urine Color (Yellw/Straw) Urine Clarity (Clear) Urine pH (5.0-8.5) Ur Specific [place] (1.002-1.035) Urine Protein (Neg-Trace) mg/dL Urine Glucose (UA) (Negative) mg/dL Urine Ketones (Negative) mg/dL Urine Occult Blood (Negative) Urine Nitrate (Negative) Urine Bilirubin (Negative) Urine Urobilinogen (Less than 2) mg/dL Ur Leukocyte Esterase (Negative) Urine RBC (0-3) /hpf Urine WBC (0-5) /hpf Ur Squamous Epith Cells (0-5) /hpf Urine Bacteria (None) /hpf Hyaline Casts (0-3) /lpf Granular Casts (None) /lpf Urine Mucus (Occasional) /lpf Nasal Screen MRSA (PCR) (Negative) 01/28/18 01/28/18 01/28/18 Range/Units 00:16 01:15 05:05 WBC 5.8 (4.0-11.0) th/mm3 RBC 4.10 (4.00-5.30) mil/mm3 Hgb 12.0 (11.6-15.3) gm/dL POC Hgb (Calc) (11.6-15.3) g/dL Hct 36.7 (35.0-46.0) % POC Hct (35-46.0) % MCV 89.6 (80.0-100.0) fL MCH 29.3 (27.0-34.0) pg MCHC 32.7 (32.0-36.0) % RDW 14.9 (11.6-17.2) % Plt Count 128 L (150-450) th/mm3 MPV 9.3 (7.0-11.0) fL Prelim Diff (Auto) Neut % (Auto) (16.0-70.0) % Lymph % (Auto) (9.0-44.0) % [place] % (Auto) (0.0-8.0) % Eos % (Auto) (0.0-4.0) % Baso % (Auto) (0.0-2.0) % Neut # (Auto) (1.8-7.7) th/mm3 Lymph # (Auto) (1.0-4.8) th/mm3 [place] # (Auto) (0.0-0.9) th/mm3 Eos # (Auto) (0.0-0.4) th/mm3 Baso # (Auto) (0.0-0.2) th/mm3 WBC Differential Seg Neuts % (Manual) (16-70) % Band Neuts % (Manual) (0-6) % Lymphocytes % (Manual) (9-44) % Monocytes % (Manual) (0-8) % Abs Neuts (Manual) (1.8-7.7) th/mm3 Differential Comment Platelet Estimate (Normal) Platelet Morphology (Normal) RBC Morphology (Normal) PT (9.8-11.6) sec INR Ratio APTT 28.5 D (24.3-30.1) sec Puncture Site Patient Temperature O2 Saturation (90-100) % ABG pH (7.380-7.420) ABG pCO2 (38-42) mmHg ABG pO2 (61-120) mmHg ABG HCO3 (22-26) mmol/L ABG O2 Content (12.0-20.0) Vol % ABG Base Excess (-2-2) mmol/L ABG Methemoglobin (0-2) % Manny Test Hemoglobin (12.0-16.0) G/DL Carboxyhemoglobin (0-4) % O2 Delivery Device Vent Setting Inspired O2 % Critical Value POC Sodium (137-144) mmol/L Sodium (136-145) meq/L POC Potassium (3.6-5.0) mmol/L Potassium (3.5-5.1) meq/L POC Chloride (102-111) mmol/L Chloride (98-107) meq/L Carbon Dioxide (21.0-32.0) meq/L Anion Gap (5-15) meq/L POC BUN (5-21) mg/dL BUN (7-18) mg/dL Creatinine (0.50-1.00) mg/dL POC Creatinine (0.6-1.3) mg/dL Estimated GFR (>89) mL/min POC Glucose 104 (68-110) mg/dL Random Glucose (74-106) mg/dL Lactic Acid (0.4-2.0) mmol/L Calcium (8.5-10.1) mg/dL Phosphorus (2.5-4.9) mg/dL Magnesium (1.5-2.5) mg/dL Total Bilirubin (0.2-1.0) mg/dL AST (15-37) U/L ALT (10-53) U/L Alkaline Phosphatase (45-117) U/L Troponin I (0.02-0.05) ng/mL Total Protein (6.4-8.2) g/dL Albumin (3.4-5.0) g/dL TSH (0.358-3.740) uIU/mL Urine Color (Yellw/Straw) Urine Clarity (Clear) Urine pH (5.0-8.5) Ur Specific [place] (1.002-1.035) Urine Protein (Neg-Trace) mg/dL Urine Glucose (UA) (Negative) mg/dL Urine Ketones (Negative) mg/dL Urine Occult Blood (Negative) Urine Nitrate (Negative) Urine Bilirubin (Negative) Urine Urobilinogen (Less than 2) mg/dL Ur Leukocyte Esterase (Negative) Urine RBC (0-3) /hpf Urine WBC (0-5) /hpf Ur Squamous Epith Cells (0-5) /hpf Urine Bacteria (None) /hpf Hyaline Casts (0-3) /lpf Granular Casts (None) /lpf Urine Mucus (Occasional) /lpf Nasal Screen MRSA (PCR) (Negative) 01/28/18 Range/Units 05:35 WBC (4.0-11.0) th/mm3 RBC (4.00-5.30) mil/mm3 Hgb (11.6-15.3) gm/dL POC Hgb (Calc) (11.6-15.3) g/dL Hct (35.0-46.0) % POC Hct (35-46.0) % MCV (80.0-100.0) fL MCH (27.0-34.0) pg MCHC (32.0-36.0) % RDW (11.6-17.2) % Plt Count (150-450) th/mm3 MPV (7.0-11.0) fL Prelim Diff (Auto) Neut % (Auto) (16.0-70.0) % Lymph % (Auto) (9.0-44.0) % [place] % (Auto) (0.0-8.0) % Eos % (Auto) (0.0-4.0) % Baso % (Auto) (0.0-2.0) % Neut # (Auto) (1.8-7.7) th/mm3 Lymph # (Auto) (1.0-4.8) th/mm3 [place] # (Auto) (0.0-0.9) th/mm3 Eos # (Auto) (0.0-0.4) th/mm3 Baso # (Auto) (0.0-0.2) th/mm3 WBC Differential Seg Neuts % (Manual) (16-70) % Band Neuts % (Manual) (0-6) % Lymphocytes % (Manual) (9-44) % Monocytes % (Manual) (0-8) % Abs Neuts (Manual) (1.8-7.7) th/mm3 Differential Comment Platelet Estimate (Normal) Platelet Morphology (Normal) RBC Morphology (Normal) PT (9.8-11.6) sec INR Ratio APTT (24.3-30.1) sec Puncture Site Patient Temperature O2 Saturation (90-100) % ABG pH (7.380-7.420) ABG pCO2 (38-42) mmHg ABG pO2 (61-120) mmHg ABG HCO3 (22-26) mmol/L ABG O2 Content (12.0-20.0) Vol % ABG Base Excess (-2-2) mmol/L ABG Methemoglobin (0-2) % Manny Test Hemoglobin (12.0-16.0) G/DL Carboxyhemoglobin (0-4) % O2 Delivery Device Vent Setting Inspired O2 % Critical Value POC Sodium (137-144) mmol/L Sodium (136-145) meq/L POC Potassium (3.6-5.0) mmol/L Potassium (3.5-5.1) meq/L POC Chloride (102-111) mmol/L Chloride (98-107) meq/L Carbon Dioxide (21.0-32.0) meq/L Anion Gap (5-15) meq/L POC BUN (5-21) mg/dL BUN (7-18) mg/dL Creatinine (0.50-1.00) mg/dL POC Creatinine (0.6-1.3) mg/dL Estimated GFR (>89) mL/min POC Glucose 119 H (68-110) mg/dL Random Glucose (74-106) mg/dL Lactic Acid (0.4-2.0) mmol/L Calcium (8.5-10.1) mg/dL Phosphorus (2.5-4.9) mg/dL Magnesium (1.5-2.5) mg/dL Total Bilirubin (0.2-1.0) mg/dL AST (15-37) U/L ALT (10-53) U/L Alkaline Phosphatase (45-117) U/L Troponin I (0.02-0.05) ng/mL Total Protein (6.4-8.2) g/dL Albumin (3.4-5.0) g/dL TSH (0.358-3.740) uIU/mL Urine Color (Yellw/Straw) Urine Clarity (Clear) Urine pH (5.0-8.5) Ur Specific [place] (1.002-1.035) Urine Protein (Neg-Trace) mg/dL Urine Glucose (UA) (Negative) mg/dL Urine Ketones (Negative) mg/dL Urine Occult Blood (Negative) Urine Nitrate (Negative) Urine Bilirubin (Negative) Urine Urobilinogen (Less than 2) mg/dL Ur Leukocyte Esterase (Negative) Urine RBC (0-3) /hpf Urine WBC (0-5) /hpf Ur Squamous Epith Cells (0-5) /hpf Urine Bacteria (None) /hpf Hyaline Casts (0-3) /lpf Granular Casts (None) /lpf Urine Mucus (Occasional) /lpf Nasal Screen MRSA (PCR) (Negative) Imaging Data Radiologist's impression: Pulmonary Perfusion Imaging 01/26/18 00:00 CONCLUSION: 1. No significant perfusion abnormalities identified. Exam is negative for pulmonary embolus. Chest X-Ray 01/26/18 03:37 CONCLUSION: 1. Interval intubation. 2. Placement of nasogastric tube 3. Moderate cardiomegaly with no definite pulmonary edema. Head CT 01/26/18 04:43 CONCLUSION: Stable exam. No acute intracranial abnormality. . Discharge Plan Discharge Disposition Patient Disposition: 30 Still Patient Discharge Details Date/Time: 01/28/18 18:45 Physicians Team ED Provider: Korey Davis Primary Care Provider: UNKNOWN, Attending Provider: Meron Johnson Other Providers: Markel Loya,Kassie ; Aruna Bang ; Carter Monson Status ED Status: Left Department Discharge Information Discharge Date/Time: 01/26/18 06:40
[2018-01-26 04:29] LABS: Alkaline Phosphatase 111 U/L (45-117); Total Protein 7.1 g/dL (6.4-8.2)
[2018-01-26 04:30] LABS: Alanine Aminotransferase 34 U/L (10-53); Albumin 3.2 g/dL (3.4-5.0); Anion Gap 11 meq/L (5-15); Aspartate Aminotransferase 52 U/L (15-37); Blood Urea Nitrogen 21 mg/dL (7-18); Calcium 8.5 mg/dL (8.5-10.1); Carbon Dioxide 24.5 meq/L (21.0-32.0); Chloride 106 meq/L (98-107); Glomerular Filtration Rate 43 mL/min (>89); Glucose,Random 191 mg/dL (74-106); Potassium 4.6 meq/L (3.5-5.1); Sodium 141 meq/L (136-145)
[2018-01-26 04:46] LABS: ABG Base Excess -0.4 mmol/L (-2-2); ABG PCO2 45 mmHg (38-42); ABG PO2 335 mmHg (61-120)
[2018-01-26 04:58] LABS: Bacteria,Urine Many /hpf; Bilirubin,Urine Negative (Negative); Clarity,Urine Hazy (Clear); Color,Urine Yellow (Yellw/Straw); Glucose,Urine (UA) Negative (Negative); Hyaline Casts,Urine 19 /lpf (0-3); Leukocyte Esterase,Urine Small (Negative); Mucus,Urine Few /lpf (Occasional); Nitrite,Urine Positive (Negative); Specific Gravity,Urine 1.013 (1.002-1.035); Squamous Epithelial Cell,Urine 1 /hpf (0-5)
[2018-01-26 05:21] LABS: Lymphocytes 16 % (9-44); Monocytes 3 % (0-8)
[2018-01-26 05:22] LABS: Platelet Estimate Normal (Normal); Platelet Morphology Normal (Normal); RBC Morphology Normal (Normal)
--- NOTE | 2018-01-26 05:30 | P.HPCC ---
History of Present Illness Service: Critical care medicine Primary Care Physician: Dr. Zacarias Chief Complaint: Respiratory arrest History of Present Illness: 77-year-old female resident of [facility] with past medical history of COPD, prior tobacco abuse, super morbid obesity, obstructive sleep apnea on CPAP, atrial fibrillation on chronic anticoagulation with warfarin, pacemaker, prior DVT with IVC filter, hypertension, hypothyroidism, depression who presented to [facility] emergency department via [facility] after call for respiratory distress. She was reportedly cyanotic at senior care with no discernible pulse so CPR was initiated. After 1 minute she had a pulse and was moving. When [facility] arrived she had a pulse but was minimally responsive. She developed respiratory distress and was intubated by the nitric acid concentrator operator in the ambulance. CXR shows cardiomegaly without infiltrate or edema. ABG done post intubation shows pH of 7.35/PCO2 45/PO2 335/bicarb 24. She is in Afib, rate 60 and normotensive 105/59. She has been sedated on fentanyl and versed drips, but I am told she was waking up and moving purposefully. Her states that she has been at her baseline health and "doing well" for the last couple of days, though having issues with her CPAP which he believes was malfunctioning. Her states that he believed she was "DNR", however face sheet from the senior care states FULL CODE and advanced directive places limitations for terminal condition/end stage condition/pers. veg. state. Her is her healthcare surrogate and requests DNR now for pulseless arrest, weaning for possible medical extubation, no trach. RLE in boot following distal tibial metaphysis fracture in October after states she "was dropped" during a transfer in the [place]. Her medications include: bupropion XL 3 mg p.o. daily Calcium carbonate 1000 mg every 8 hours as needed Carvedilol 3.1251 tab p.o. nightly Warfarin 6 mg Thursday, Thursday, Thursday, Thursday, Thursday Warfarin 7.5 mg Thursday, D-mannose powder 2 capsules p.o. daily Lac-Hydrin lotion Lasix 40 mg p.o. twice daily Synthroid 25 mcg p.o. daily Loperamide 2 mg p.o. every 8 hours as needed Loratadine 10 mg every 24 hours Multivitamin 1 tab p.o. daily Nystatin powder topically twice daily Zofran 4 mg every 6 hours as needed Percocet 10/325 one tab p.o. every 4 hours as needed Potassium chloride ER 10 mg p.o. twice daily MiraLAX 17 g p.o. daily Promethazine suppository every 6 hours as needed vilazodone 20 mg p.o. daily Vitamin K to 100 mcg p.o. daily Xanax 0.5 mg p.o. 3 times daily as needed - Diagnosis (1) Respiratory arrest (2) Obesity (3) SEBASTIÁN (obstructive sleep apnea) (4) SEBASTIÁN on CPAP (5) DANIELA (acute kidney injury) (6) Lactic acidemia Inpatient Certification: I certify that the inpatient services were ordered in accordance with Medicare regulations governing the order. This includes certification that hospital inpatient services are reasonable and necessary and in the case of services not specified as inpatient-only under 42 CFR 419.22(n), that they are appropriately provided as inpatient services in accordance to with the 2-midnight benchmark under 43 CFR 412.3(e) [facility] - History History Provided By: Surgical Garment Assembler / EMT - Medical History Medical History: Medical History (Last Updated 01/26/18 @ 06:42 by Meron Zacarias MD) Artificial pacemaker Atrial fibrillation CAD (coronary artery disease) COPD (chronic obstructive pulmonary disease) Cervical fusion syndrome Chronic anticoagulation Depression HTN (hypertension) Hypothyroidism SEBASTIÁN (obstructive sleep apnea) Obesity Presence of inferior vena cava filter - Surgical History Surgical History: Surgical History (Last Updated 01/26/18 @ 06:42 by Meron Zacarias MD) H/O bilateral oophorectomy H/O gastric bypass History of bilateral knee replacement History of cholecystectomy History of open reduction and internal fixation (ORIF) procedure S/P appy - Family History Family History: Family History (Last Updated 01/26/18 @ 09:52 by Meron Zacarias MD) Mother No significant medical problems Brother Agent orange exposure - Tobacco History Tobacco Use In Past 30 Days: No Smoking Status: Former smoker Tobacco Type: Cigarettes Packs Per Day: 2 Smoking End Date: 1971 - Alcohol History How Often Do You Have a Drink Containing Alcohol: Never - Substance Use History Substance History: No History of Abuse Medications and Allergies Active Medications: Active Medications Fentanyl (Fentanyl 10 Mcg/Ml Premix Drip) 2,500 mcg in 250 mls @ 5 mls/hr IV.SIG TITRATE PRN; Protocol PRN Reason: Per Protocol Last Admin: 01/26/18 03:49 Dose: 50 mcg/hr, 5 mls/hr Midazolam HCl (Versed Inj) 50 mg in 50 mls @ 2 mls/hr IV.CONT TITRATE PRN; Protocol PRN Reason: Per Protocol Last Admin: 01/26/18 03:48 Dose: 2 mg/hr, 2 mls/hr Allergies Allergy/AdvReac Type Severity Reaction Status Date / Time diatrizoate meglumine Allergy Severe HIVES Verified 01/26/18 03:29 gadobenic acid Allergy Severe HIVES Verified 01/26/18 03:29 gadodiamide Allergy Severe HIVES Verified 01/26/18 03:29 gadoteridol Allergy Severe HIVES Verified 01/26/18 03:29 iodixanol Allergy Severe HIVES Verified 01/26/18 03:29 iohexol Allergy Severe HIVES Verified 01/26/18 03:29 Results - Labs CBC & Chem 7: 01/28/18 05:05 01/27/18 04:01 Labs: Short CBC 01/26/18 Range/Units 04:00 WBC 11.7 H (4.0-11.0) th/mm3 Hgb 13.7 (11.6-15.3) gm/dL Hct 42.3 (35.0-46.0) % Plt Count 199 (150-450) th/mm3 BMP 01/26/18 04:00 Sodium 141 Potassium 4.6 Chloride 106 Carbon Dioxide 24.5 BUN 21 H Creatinine 1.22 H Calcium 8.5 Cardiac Enzymes 01/26/18 Range/Units 04:00 Troponin I Less than 0.02 L (0.02-0.05) ng/mL Liver Function 01/26/18 Range/Units 04:00 Total Bilirubin 0.6 (0.2-1.0) mg/dL AST 52 H (15-37) U/L ALT 34 (10-53) U/L Alkaline Phosphatase 111 (45-117) U/L Albumin 3.2 L (3.4-5.0) g/dL Urine 01/26/18 Range/Units 04:10 Urine Color Yellow (Yellw/Straw) Urine Clarity Hazy H (Clear) Urine pH 5.0 (5.0-8.5) Ur Specific [place] 1.013 (1.002-1.035) Urine Protein 30 H (Neg-Trace) mg/dL Urine Glucose (UA) Negative (Negative) mg/dL - Imaging Impressions Chest X-Ray 01/26/18 03:37 CONCLUSION: 1. Interval intubation. 2. Placement of nasogastric tube 3. Moderate cardiomegaly with no definite pulmonary edema. Exam Vital signs: Vital Signs 01/26/18 03:21 01/26/18 03:35 01/26/18 04:00 Pulse Rate 62 60 Respiratory Rate 20 16 16 Blood Pressure 170/78 H 147/66 H Pulse Oximetry 100 100 97 Intake & Output 01/25/18 01/25/18 01/26/18 06:59 18:59 06:59 Weight 204.117 kg Narrative: GENERAL: Obese male who is orotracheally intubated and has been placed on sedation in the ED. SKIN: Warm and dry. HEAD: Atraumatic. Normocephalic. EYES: Pupils equal and round, 2 mm and reactive bilaterally peer no scleral icterus. No injection or drainage. ENT: No nasal bleeding or discharge. Mucous membranes pink and moist. NECK: Trachea midline. No JVD. CARDIOVASCULAR: Regular, underlying atrial fibrillation on telemetry.. Distant heart sounds with no murmurs rubs or gallops appreciated.. RESPIRATORY: Orotracheally intubated, no accessory muscle use. No wheezes rales or rhonchi appreciated. GASTROINTESTINAL: Abdomen obese, soft, non-tender, nondistended. MUSCULOSKELETAL: Extremities without clubbing, cyanosis, or edema, obese. Boot in place right lower extremity. NEUROLOGICAL: Sedated, withdraws with upper extremities. Caprini VTE Risk Assessment Caprini VTE Risk Assessment: Moderate/High Risk (score >= 2) Caprini Risk Assessment Model: Point Value = 1 Point Value = 2 Point Value = 3 Point Value = 5 Age 41-60 Minor surgery BMI > 25 kg/m2 Swollen legs Varicose veins or History of unexplained or recurrent spontaneous Oral contraceptives or hormone replacement Sepsis (< 1 month) Serious lung disease, including pneumonia (< 1 month) Abnormal pulmonary function Acute myocardial infarction Congestive heart failure (< 1 month) History of inflammatory bowel disease Medical patient at bed rest Age 61-74 Arthroscopic surgery Major open surgery (> 45 min) Laparoscopic surgery (> 45 min) Malignancy Confined to bed (> 72 hours) Immobilizing plaster cast Central venous access Age >= 75 History of VTE Family history of VTE Factor V Leiden Prothrombin 20237T Lupus anticoagulant Anticardiolipin antibodies Elevated serum homocysteine Heparin-induced thrombocytopenia Other congenital or acquired thrombophilia Stroke (< 1 month) Elective arthroplasty Hip, pelvis, or leg fracture Acute spinal cord injury (< 1 month) Prophylaxis Regimen: Total Risk Factor Score Risk Level Prophylaxis Regimen 0-1 Low Early ambulation 2 Moderate Order ONE of the following: *Sequential Compression Device (SCD) *Heparin 5000 units SQ BID 3-4 Higher Order ONE of the following medications: *Heparin 5000 units SQ TID *Enoxaparin/Lovenox 40 mg SQ daily (WT < 150 kg, CrCl > 30 mL/min) *Enoxaparin/Lovenox 30 mg SQ daily (WT < 150 kg, CrCl > 10-29 mL/min) *Enoxaparin/Lovenox 30 mg SQ BID (WT < 150 kg, CrCl > 30 mL/min) AND/OR *Sequential Compression Device (SCD) 5 or more Highest Order ONE of the following medications: *Heparin 5000 units SQ TID (Preferred with Epidurals) *Enoxaparin/Lovenox 40 mg SQ daily (WT < 150 kg, CrCl > 30 mL/min) *Enoxaparin/Lovenox 30 mg SQ daily (WT < 150 kg, CrCl > 10-29 mL/min) *Enoxaparin/Lovenox 30 mg SQ BID (WT < 150 kg, CrCl > 30 mL/min) AND *Sequential Compression Device (SCD) Assessment and Plan - Problem List (1) Respiratory arrest Code(s): R09.2 - Respiratory arrest Status: Acute (2) Obesity Code(s): E66.9 - Obesity, unspecified Status: Acute (3) SEBASTIÁN (obstructive sleep apnea) Code(s): G47.33 - Obstructive sleep apnea (adult) (pediatric) Status: Acute (4) SEBASTIÁN on CPAP Code(s): G47.33 - Obstructive sleep apnea (adult) (pediatric); Z99.89 - Dependence on other enabling machines and devices Status: Acute (5) DANIELA (acute kidney injury) Code(s): N17.9 - Acute kidney failure, unspecified Status: Acute (6) Lactic acidemia Code(s): E87.2 - Acidosis Status: Acute - Assessment and Plan Plan: NEURO: Fentanyl drip for sedation. We will discontinue Versed drip. Use Versed as needed. Propofol can be added if needed for additional sedation. Target RASS -[address] brain prior to heparinization RESP: Acute respiratory arrest COPD Prior tobacco abuse Obstructive sleep apnea on home CPAP. Intubated in the field by [facility]. Ventilator bundle. Wean ventilator as tolerated and perform CPAP trials. Chest x-ray relatively unremarkable. PE is certainly a consideration, moderate/ high risk (prior DVT,immobilization, lower extremity fracture, INR subtherapeutic). HEr reports IV contrast allergy with hives. At this point would start with VQ for evaluation, could consider pretreatment with CTA if needed. Session with Dr. Mendez will empirically treat with heparin if CT brain is negative. We will need CPAP machine evaluated prior to discharge concern regarding malfunction. CV: PEA cardiac arrest Atrial fibrillation Pacemaker in place Lactic acidemia Suspect respiratory arrest. Check EKG. Initial troponin negative. Will trend Telemetry monitoring Obtain 2D echo Lactic acid elevated postarrest, will trend. Her hosiery repairer is Dr. Maldonado. GI: Obesity NG tube to low intermittent wall suction. Initiate enteral feeds in 24 hours if not able to extubate FEN/RENAL: CKD stage III Hassan catheter in place. Monitor intake and output. Monitor electrolytes. Replace as indicated. ID: ?[id number] Receive Zosyn and vancomycin in the emergency department. We will continue empiric treatment with Zosyn for ? UTI. Follow-up urine culture. Chest x-ray without infiltrate. Monitoring for evidence of fever, monitor CBC is adamant that she does NOT have a PCN allergy and requests that "be removed from the record". She did receive Zosyn in the ED without untoward effect. HEME: IVC filter in place History of DVT On chronic coagulation with warfarin for atrial fibrillation. INR is subtherapeutic at 1.2. There is based on presentation there is concern for PE. Will treat empirically with heparin drip. Hold warfarin for now pending w/u. ENDO: Hypothyroid Follow-up TSH. Synthroid 25 mcg OG daily Hyperglycemia Monitor bedside glucose every 6h and use low-dose insulin sliding scale as indicated. PROPH: Heparin drip will provide DVT prophylaxis. Famotidine for stress ulcer prophylaxis. ACCESS: Peripheral IV providing adequate access Patient's is her designated healthcare surrogate. He states she would wish to be DO NOT RESUSCITATE in of pulseless arrest. He agrees with continuing mechanical ventilation and continuing attempts at weaning. If she could not be successfully weaned to extubation he states she would not want prolonged mechanical ventilation or trach. Based on this discussion have change CODE STATUS to alternate code, intubation only. Has been requested that Dr. Zacarias be notified of her admission. Staff at [facility] states that he has been notified of her change in condition. Patient is critically ill with respiratory arrest resulting in intubation with multiple comorbidities and multiorgan dysfunction.. She is at high risk for further deterioration. Critical care time 55 minutes exclusive of separately billable procedures
[2018-01-26 06:15] LABS: Activated Partial Thrombo Time 27.8 sec (24.3-30.1); INR 1.2 Ratio; Prothrombin Time 12.5 sec (9.8-11.6)
[2018-01-26] MEDS ORDERED: Acetaminophen 325 MG Tablet PO PRN (06:17)
[2018-01-26] MEDS ORDERED: Bisacodyl 10 MG Supp RECTAL PRN (06:17)
--- NOTE | 2018-01-26 07:15 | CT ---
EXAM DATE: 01/26/2018 7:05 AM EDT AGE/SEX: 77 years / Female INDICATIONS: Altered mental status. CLINICAL DATA: This is the patient's initial encounter. Patient reports that signs and symptoms have been present for 1 day and indicates a pain score of Nonresponsive. MEDICAL/SURGICAL HISTORY: Non-responsive. Non-responsive. RADIATION DOSE: 56.35 CTDI (mGy) COMPARISON: [facility] – [place], [place], CT BRAIN W/O CONTRAST, 11/22/2017. . TECHNIQUE: CT of the head without contrast. Using automated exposure control and adjustment of the mA and/or kV according to patient size, radiation dose was kept as low as reasonably achievable to ob tain optimal diagnostic quality images. DICOM format image data is available electronically for revi ew and comparison. FINDINGS: Cerebrum: Mild age-related parenchymal atrophy. The ventricles are normal for age. No evidence of m idline shift, mass lesion, acute intracranial hemorrhage, or acute large vessel cortical infarction. Stable patchy and confluent regions of hypodensity in the periventricular and subcortical white matte r, which are nonspecific but likely related to small vessel ischemic disease. No extraaxial fluid col lections are seen. Posterior Fossa: The cerebellum and brainstem are intact. The 4th ventricle is midline. The cerebe llopontine angle is unremarkable. Extracranial: The visualized portion of the orbits is intact. Mild mucosal thickening of the anterio r ethmoid sinuses. Skull: The calvaria is intact. No evidence of skull fracture. Hyperostosis frontalis internus. CONCLUSION: Stable exam. No acute intracranial abnormality. . Electronically signed by: Humera Rodriguez MD 01/26/2018 7:13 AM EDT
[2018-01-26] MEDS: Senna/Docusate Sodium 8.6/50 MG Tablet PO SCH ×2 (07:59→20:16)
[2018-01-26] MEDS: Famotidine PF Inj 20 MG/2 ML Vial IV.PUSH SCH ×2 (07:59→20:16)
[2018-01-26] MEDS ORDERED: Heparin 10,000 UNITS/10 ML Vial (for IV use) IV.PUSH STA ×2 (09:47→10:10)
[2018-01-26] MEDS ORDERED: Heparin Drip 25,000 UNIT/250 ML BAG IV.CONT PRN (10:14)
[2018-01-26] MEDS ORDERED: Dextrose 50% in Water 50 ML Vial IV.PUSH PRN (10:19)
--- NOTE | 2018-01-26 11:21 | NM ---
EXAM DATE: 01/26/2018 11:04 AM EDT AGE/SEX: 77 years / Female INDICATIONS: Dyspnea. CLINICAL DATA: This is the patient's initial encounter. Patient reports that signs and symptoms have been present for 1 day and indicates a pain score of 0/10. MEDICAL/SURGICAL HISTORY: Chronic obstructive pulmonary disease. Hypertension. Hypothyroidism . Coronary artery disease. Pacemaker. Gastric bypass. Cholecystectomy. Bilateral knee replacemen t. COMPARISON: [facility], CHEST 1V SINGLE AP, 01/26/2018. . DOSE: 1.2 mCi Tc99m DTPA aerosol 8.5 mCi Tc99m MAA IV TECHNIQUE: Following five minutes of tidal breathing of DTPA aerosol, planar images of the lungs wer e performed in eight projections. The patient was then injected with MAA, and eight-view perfusion s can was performed. FINDINGS: There is homogeneous distribution of MAA on the perfusion portion of the examination. The study appea rs similar to a previous dated 04/21/2012. Accounting chest x-ray demonstrates patient to be intubated. There is advanced cardiomegaly and chron ic appearing interstitial changes. CONCLUSION: 1. No significant perfusion abnormalities identified. Exam is negative for pulmonary embolus. Electronically signed by: Rashawn Salinas MD 01/26/2018 11:19 AM EDT
[2018-01-26] MEDS: Insulin NovoLIN Regular Correctional Sugar Inj SQ SCH ×2 (12:00→18:34)
[2018-01-26] MEDS: Piperacil/Tazo 3.375 GM Premix 50 ML IV.SIG SCH ×2 (12:01→19:50)
[2018-01-26 12:20] LABS: Hematocrit 39.3 % (35.0-46.0); Mean Corpuscular Volume 90.9 fL (80.0-100.0); Platelet Count 153 th/mm3 (150-450); Red Blood Count 4.32 mil/mm3 (4.00-5.30); Red Cell Distribution Width 14.7 % (11.6-17.2); White Blood Count 10.8 th/mm3 (4.0-11.0)
[2018-01-26 12:33] LABS: Activated Partial Thrombo Time 24.4 sec (24.3-30.1); INR 1.3 Ratio
[2018-01-26] MEDS: Heparin Drip 25,000 UNIT/250 ML BAG IV.CONT PRN (13:19)
[2018-01-26] MEDS: Propofol 1000 mg/100 ml Inj 1,000 MG/100 ML BOTTLE IV.CONT PRN (18:10)
--- NOTE | 2018-01-26 18:24 | ECG ---
Date Performed: 01/26/2018 Time Performed: 04:54:12 PTAGE: 77 years EKG: ELECTRONIC VENTRICULAR PACEMAKER Underlying Atrial Fibrillation ABNORMAL RHYTHM ECG PREVIOUS TRACING : 05/27/2017 09.16 Since the previous tracing, no significant change noted DOCTOR: Jose A Joy Interpretating Date/Time 01/26/2018 18:22:32
[2018-01-27] MEDS: Heparin Drip 25,000 UNIT/250 ML BAG IV.CONT PRN ×2 (01:22→09:07)
[2018-01-27] MEDS: fentaNYL 10 mcg/mL Premix Drip 2,500 MCG/250 ML BAG IV.SIG PRN ×2 (01:43→23:23)
[2018-01-27] MEDS ORDERED: Chlorhexidine Gluconate 2% 1 Pack (2 Cloths) TOPICAL PRN (04:00)
[2018-01-27] MEDS: Insulin NovoLIN Regular Correctional Sugar Inj SQ SCH ×4 (04:15→18:01)
[2018-01-27 04:55] LABS: Baso % (Auto) 0.5 % (0.0-2.0); Eos # (Auto) 0.2 th/mm3 (0.0-0.4); Eos % (Auto) 2.6 % (0.0-4.0); Hematocrit 35.2 % (35.0-46.0); Hemoglobin 11.6 gm/dL (11.6-15.3); Lymph # (Auto) 1.3 th/mm3 (1.0-4.8); Lymph % (Auto) 22.1 % (9.0-44.0); Mean Corpuscular Hemoglobin 29.7 pg (27.0-34.0); Mean Corpuscular Volume 89.9 fL (80.0-100.0); Mean Platelet Volume 9.4 fL (7.0-11.0); Mono # (Auto) 0.7 th/mm3 (0.0-0.9); Mono % (Auto) 10.9 % (0.0-8.0); Neut # (Auto) 3.8 th/mm3 (1.8-7.7); Neut % (Auto) 63.9 % (16.0-70.0); Platelet Count 129 th/mm3 (150-450); Red Blood Count 3.92 mil/mm3 (4.00-5.30); Red Cell Distribution Width 14.6 % (11.6-17.2)
[2018-01-27 05:09] LABS: INR 1.3 Ratio; Prothrombin Time 13.5 sec (9.8-11.6)
[2018-01-27] MEDS: Piperacil/Tazo 3.375 GM Premix 50 ML IV.SIG SCH ×3 (05:11→20:19)
[2018-01-27] MEDS: Chlorhexidine Gluconate 2% 1 Pack (2 Cloths) TOPICAL SCH (05:11)
[2018-01-27] MEDS: Propofol 1000 mg/100 ml Inj 1,000 MG/100 ML BOTTLE IV.CONT PRN ×6 (05:14→22:59)
[2018-01-27 05:19] LABS: Alanine Aminotransferase 30 U/L (10-53); Albumin 2.7 g/dL (3.4-5.0); Alkaline Phosphatase 97 U/L (45-117); Anion Gap 9 meq/L (5-15); Aspartate Aminotransferase 35 U/L (15-37); Blood Urea Nitrogen 29 mg/dL (7-18); Calcium 8.8 mg/dL (8.5-10.1); Carbon Dioxide 27.9 meq/L (21.0-32.0); Chloride 108 meq/L (98-107); Glomerular Filtration Rate 37 mL/min (>89); Glucose,Random 95 mg/dL (74-106); Phosphorus 3.2 mg/dL (2.5-4.9); Potassium 3.5 meq/L (3.5-5.1); Sodium 145 meq/L (136-145); Total Protein 6.1 g/dL (6.4-8.2)
[2018-01-27] MEDS: Famotidine PF Inj 20 MG/2 ML Vial IV.PUSH SCH ×2 (08:54→20:19)
[2018-01-27] MEDS: Senna/Docusate Sodium 8.6/50 MG Tablet PO SCH ×2 (08:54→20:19)
--- NOTE | 2018-01-27 09:56 | P.CONPAL ---
Consult Service: Palliative Care Requesting Physician: Alec Elkins Reason for Consult: a. To assist with evaluation and management of symptoms including:pain,anxiety b. To assist medical decision maker(s) with: better understanding of current medical conditions; weighing benefits/burdens of medical treatment options; making medical treatment decisions. Primary Care Provider: UNKNOWN History of Present Illness History of Present Illness: 77-year-old has a past medical history significant for but not limited to COPD, sleep apnea, morbid obesity, A. fib on chronic anticoagulation, pacemaker, prior DVT with IVC filter, hypertension, hypothyroidism, and depression. Patient presented to [facility] via [facility] for cough or respiratory distress on 01/26/2018. Patient is a halfway resident and was reportedly cyanotic with no discernible pulse so CPR was initiated. After 1 minute of CPR patient pulse came back and was moving. Upon arrival of [facility] patient had pulse that was minimally responsive. Patient developed respiratory distress and was intubated by paramedics. Is reported that possibly CPAP machine was not functioning well for patient. In the ER: * Temperature 99.6, pulse of 62, respirations 20, blood pressure is 170/78, pulse holes 100% on mechanical ventilation * WBCs 11.7, hemoglobin is 30.7, hematocrit is 42.3, platelets 199 * Sodium is 140, potassium is 4.6, chloride 104, bicarb is 24.5, BUNs 26, creatinine is 1.22 * PT is 12.5, INR is 1.2, PTT is 20 seven-point * Perfusion scan shows no abnormalities identified and is negative for PE * Chest x-ray shows interval intubation, NG tube in place, moderate cardiomegaly with no definite pulmonary edema. * CT of the head showed mild age-related parenchymal atrophy. Ventricles are normal. No evidence of midline shift, mass lesion, acute intracranial hemorrhage. Patient care transferred to critical medicine and transferred to ICU. Is reported that patient had been DNR. Patient made the decision and requests continue DNR, No further CPR no trach and weaning for possible medical extubation. Intensivists ordered 2D echo. Wean from ventilator if tolerated. 01/27/2018= cardiac enzymes first set was troponin I 0.02, second set 0.29, third set 0.21. Palliative care was consulted to review goals of care Pt is intubated and sedated. Could not elicit history. Spend time speaking with pt's current condition. Pt's and sister in law was at bedside. Sister in law had state is very tired and had not slept the whole night. is struggling with 's decline. [place] last time when pt was in the icu, it was s/p surgery for fall and she spent 11 days on the vent. At that time had told , he did not want to be on life support again. at this point in time could not acquiesce to comfort only right now. He did say he does not want prolong ventilation and no trach and peg I review code status with pt's x 2 one time with family present, and one time alone., He states he does want Full Code. I review with him what cpr/ shock would mean for patient, and my concern she may get most of the trauma form it and none of the benefits. Also if she need another round of resucitation, it would likely mean prolong life support/ trach/ peg etch. is stress and exhausted, at this point could not get decision on reintubation if pt was medically extubated. At this point goc is aggressive short of peg and trach. If pt could not be wean off ventilator then he would transition to comfort. Function/Cognitive Trajectory: Patient is halfway dependent, bed to chair existance. Patient suffered a distal tibial metaphysis fracture in October after she "was dropped" during transfer halfway. Review of Systems Eyes: Denies blurry vision, Denies bulging eyes, Denies change in vision Ears, Nose, Mouth, and Throat: Denies abnormal hearing, Denies bleeding gums, Denies difficulty swallowing Cardiovascular: Reports irregular heart rhythm Respiratory: Reports shortness of breath Gastrointestinal: Denies abdominal pain, Denies belching, Denies black, tarry stools, Denies bright, red blood in stools, Denies change in bowel habits Genitourinary: Denies abnormal periods, Denies abnormal vaginal bleeding, Denies bleeding between periods, Denies blood in urine Musculoskeletal: Reports limited joint movement, Reports muscle weakness Skin/Breast: Denies change in skin color, Denies changing lesions, Denies dry skin, Denies excessive hair growth, Denies hair loss, Denies itching Neurologic: Denies memory loss, Denies numbness Psychiatric: Denies thoughts of hurting/killing others, Denies thoughts of hurting/killing yourself PMFSH - History History Provided By: Agricultural Specialist / EMT - Medical History Medical History: Medical History (Last Updated 01/26/18 @ 06:42 by Meron Zacarias MD) Artificial pacemaker Atrial fibrillation CAD (coronary artery disease) COPD (chronic obstructive pulmonary disease) Cervical fusion syndrome Chronic anticoagulation Depression HTN (hypertension) Hypothyroidism [place] (obstructive sleep apnea) Obesity Presence of inferior vena cava filter - Surgical History Surgical History: Surgical History (Last Updated 01/26/18 @ 06:42 by Meron Zacarias MD) H/O bilateral oophorectomy H/O gastric bypass History of bilateral knee replacement History of cholecystectomy History of open reduction and internal fixation (ORIF) procedure S/P appy - Family History Family History: Family History (Last Updated 01/26/18 @ 09:52 by Meron Zacarias MD) Mother No significant medical problems Brother Agent orange exposure - Tobacco History Tobacco Use In Past 30 Days: No Smoking Status: Former smoker Tobacco Type: Cigarettes Packs Per Day: 2 Smoking End Date: 1971 - Alcohol History How Often Do You Have a Drink Containing Alcohol: Never - Substance Use History Substance History: No History of Abuse - Immunization History Tetanus Immunization: Unable to Assess Hx Influenza Vaccine This Season: Unable to Assess Medications and Allergies Active Medications: Active Medications Acetaminophen (Tylenol) 650 mg PO Q6H PRN PRN Reason: PAIN 1-10 AND/OR FEVER >101F Al Hydroxide/Mg Hydroxide (Milk Of Magnrodney Liq) 30 ml PO Q12H PRN PRN Reason: Mild Constipation Albuterol (Albuterol Neb (Prn)) 2.5 mg NEB Q2HR NEB PRN PRN Reason: SHORTNESS OF BREATH/WHEEZING Albuterol (Duoneb Neb ([place])) 1 ampul NEB Q6HR NEB LEÓN Last Admin: 01/27/18 04:26 Dose: 1 ampul Bisacodyl (Dulcolax Supp) 10 mg RECTAL DAILY PRN PRN Reason: SEVERE CONSITIPATION Chlorhexidine Gluconate (Chlorhexidine 2% Cloth) 3 pack TOPICAL DAILY@0400 LEÓN Stop: 02/01/18 03:59 Last Admin: 01/27/18 05:11 Dose: 3 pack Chlorhexidine Gluconate (Chlorhexidine 2% Cloth) 3 pack TOPICAL DAILY@0400 PRN PRN Reason: Extra cloth needed Stop: 02/01/18 03:59 Dextrose (D50w Vial) 50 ml IV.PUSH UNSCH PRN PRN Reason: PER HYPOGLYCEMIA PROTOCOL Famotidine (Pepcid Pf Inj) 10 mg IV.PUSH Q12HR [facility] Last Admin: 01/27/18 08:54 Dose: 10 mg Glucagon (Glucagon Inj) 1 mg OTHER PRN PRN PRN Reason: for Hypoglycemia Protocol Fentanyl (Fentanyl 10 Mcg/Ml Premix Drip) 2,500 mcg in 250 mls @ 5 mls/hr IV.SIG TITRATE PRN; Protocol PRN Reason: Per Protocol Last Admin: 01/27/18 01:43 Dose: 250 mcg/hr, 25 mls/hr Heparin Sodium/Dextrose (Heparin/D5w 25,000 U/250 Ml) 25,000 unit in 250 mls @ 8 mls/hr IV.CONT TITRATE PRN; Protocol PRN Reason: Per Protocol Last Admin: 01/27/18 09:07 Dose: 1,400 units/hr, 14 mls/hr Piperacillin/Tazobactam/Dextrose (Zosyn 3.375 Gm Premix) 50 mls @ 100 mls/hr IV.SIG Q8H [facility] Last Infusion: 01/27/18 08:55 Dose: Infused Propofol (Diprivan 1000 Mg/100 Ml Inj) 1,000 mg in 100 mls @ 4.266 mls/hr IV.CONT TITRATE PRN; Protocol PRN Reason: Per Protocol Last Admin: 01/27/18 09:12 Dose: 25 mcg/kg/min, 21.33 mls/hr Insulin Human Regular (Novolin R Correctional Sugar Inj) 0 units SQ Q6HR [facility]; Protocol Last Admin: 01/27/18 05:16 Dose: Not Given Lactulose (Lactulose Liq) 30 ml PO DAILY PRN PRN Reason: SEVERE CONSITIPATION Levothyroxine Sodium (Synthroid) 25 mcg NG/OG DAILY@0600 [facility] Last Admin: 01/27/18 05:11 Dose: 25 mcg Midazolam HCl (Versed Inj) 1 mg IV.PUSH Q15M PRN PRN Reason: sedation Last Admin: 01/26/18 14:19 Dose: 1 mg Senna/Docusate Sodium (Sugey-Colace) 1 tab PO BID [facility] Last Admin: 01/27/18 08:54 Dose: 1 tab Sennosides (Senokot) 17.2 mg PO Q12H PRN PRN Reason: Moderate Constipation Sodium Chloride (Ns Flush) 2 ml IV.FLUSH BID LEÓN Last Admin: 01/27/18 08:54 Dose: 2 ml Sodium Chloride (Ns Flush) 2 ml IV.FLUSH PRN PRN PRN Reason: FLUSH AFTER USING IV ACCESS Allergies Allergy/AdvReac Type Severity Reaction Status Date / Time diatrizoate meglumine Allergy Severe HIVES Verified 01/26/18 03:29 gadobenic acid Allergy Severe HIVES Verified 01/26/18 03:29 gadodiamide Allergy Severe HIVES Verified 01/26/18 03:29 gadoteridol Allergy Severe HIVES Verified 01/26/18 03:29 iodixanol Allergy Severe HIVES Verified 01/26/18 03:29 iohexol Allergy Severe HIVES Verified 01/26/18 03:29 Advance Directives Living Will: Yes Healthcare Surrogate: Yes Physical Exam Vital Signs: Vital Signs - 24 hr 01/26/18 09:55 01/26/18 10:00 01/26/18 10:30 Temperature Pulse Rate 60 60 60 Respiratory Rate 16 16 17 Blood Pressure 132/57 L 138/62 98/57 L Pulse Oximetry 100 100 100 01/26/18 11:00 01/26/18 11:14 01/26/18 11:17 Temperature Pulse Rate 63 62 Respiratory Rate 31 H 16 16 Blood Pressure 153/74 H 129/59 L Pulse Oximetry 99 99 01/26/18 11:30 01/26/18 12:00 01/26/18 12:01 Temperature 97.5 F L Pulse Rate 60 60 60 Respiratory Rate 13 12 16 Blood Pressure 127/56 L 114/57 L Pulse Oximetry 98 99 100 01/26/18 12:31 01/26/18 13:00 01/26/18 13:01 Temperature Pulse Rate 60 60 61 Respiratory Rate 16 13 14 Blood Pressure 117/56 L 114/62 Pulse Oximetry 100 100 99 01/26/18 14:00 01/26/18 14:22 01/26/18 14:31 Temperature Pulse Rate 60 61 60 Respiratory Rate 16 20 16 Blood Pressure 109/57 L 109/48 L Pulse Oximetry 97 97 97 01/26/18 15:00 01/26/18 15:01 01/26/18 15:24 Temperature Pulse Rate 62 60 60 Respiratory Rate 16 16 16 Blood Pressure 105/54 L Pulse Oximetry 95 96 96 01/26/18 15:31 01/26/18 16:00 01/26/18 16:01 Temperature 98.5 F Pulse Rate 60 60 60 Respiratory Rate 16 16 16 Blood Pressure 98/56 L 108/52 L Pulse Oximetry 96 97 96 01/26/18 16:31 01/26/18 17:00 01/26/18 17:01 Temperature Pulse Rate 60 61 61 Respiratory Rate 16 16 16 Blood Pressure 118/55 L 120/56 L Pulse Oximetry 97 97 97 01/26/18 17:31 01/26/18 18:00 01/26/18 18:01 Temperature Pulse Rate 60 60 60 Respiratory Rate 16 16 16 Blood Pressure 110/50 L 106/56 L Pulse Oximetry 99 100 100 01/26/18 19:00 01/26/18 19:45 01/26/18 20:00 Temperature 98.8 F Pulse Rate 60 60 60 Respiratory Rate 16 16 18 Blood Pressure 113/55 L 118/62 Pulse Oximetry 99 100 99 01/26/18 21:00 01/26/18 22:00 01/26/18 23:00 Temperature Pulse Rate 60 60 60 Respiratory Rate 16 16 16 Blood Pressure 109/51 L 119/55 L 109/54 L Pulse Oximetry 99 100 99 01/26/18 23:53 01/27/18 00:00 01/27/18 01:00 Temperature 98.9 F Pulse Rate 60 60 Respiratory Rate 18 17 16 Blood Pressure 118/58 L 113/54 L Pulse Oximetry 96 98 97 01/27/18 02:00 01/27/18 03:00 01/27/18 04:00 Temperature 98.5 F Pulse Rate 60 60 60 Respiratory Rate 16 16 16 Blood Pressure 119/58 L 116/58 L 124/58 L Pulse Oximetry 96 96 97 01/27/18 04:15 01/27/18 04:27 01/27/18 05:00 Temperature Pulse Rate 60 60 Respiratory Rate 18 16 17 Blood Pressure 114/60 Pulse Oximetry 97 97 01/27/18 06:00 01/27/18 07:45 Temperature Pulse Rate 60 Respiratory Rate 16 16 Blood Pressure 79/42 L Pulse Oximetry 95 100 I&O: Intake & Output 01/25/18 01/26/18 01/27/18 08/02/18 06:59 06:59 06:59 06:59 Intake Total 50 / 50 1380 / 1380 400 / 400 Output Total 250 / 250 250 / 250 Balance -200 / -200 1130 / 1130 400 / 400 Weight 127.006 kg 142.2 kg Physical Exam: CONSTITUTIONAL/GENERAL: Intubated and sedated, obese habitius,. TUBES/LINES/DRAINS:Et tube, PIV SKIN: No jaundice, rashes, or lesions. Ecchymoses on upper extremities. No wounds seen anteriorly. Skin temperature appropriate. Not diaphoretic. HEAD: Atraumatic. Normocephalic. EYES: Pupils equal and round and reactive. No injection or drainage. Fundi not examined. ENT: Nose without bleeding or purulent drainage. Throat ET tube NECK: Trachea midline. Supple, nontender. CARDIOVASCULAR: Regular rate and rhythm without murmurs, gallops, or rubs. No JVD. Peripheral pulses symmetric. RESPIRATORY/CHEST: Symmetric, expiratory wheezing heard. GASTROINTESTINAL: Abdomen soft, non-tender,distended. No hepato-splenomegaly, or palpable masses. No guarding. Bowel sounds present. GENITOURINARY: Without palpable bladder distension. Hasasn catheter in place. MUSCULOSKELETAL: Extremities without clubbing, cyanosis, or edema. LYMPHATICS: No palpable cervical or supraclavicular adenopathy. NEUROLOGICAL: intubated and sedated PSYCHIATRIC: could not examine due to level of mental status. Diagnostic Tests Laboratory: Laboratory Results - last 72 hr 01/26/18 01/26/18 01/26/18 04:00 04:00 04:00 WBC 11.7 H RBC 4.67 Hgb 13.7 POC Hgb (Calc) 13.6 Hct 42.3 POC Hct 40.0 MCV 90.5 MCH 29.3 MCHC 32.4 RDW 14.8 Plt Count 199 MPV 9.4 Prelim Diff (Auto) Slide review pending Neut % (Auto) 76.4 H Lymph % (Auto) 15.2 [place] % (Auto) 5.2 Eos % (Auto) 2.4 Baso % (Auto) 0.8 Neut # (Auto) 8.9 H Lymph # (Auto) 1.8 [place] # (Auto) 0.6 Eos # (Auto) 0.3 Baso # (Auto) 0.1 WBC Differential Manual diff final Seg Neuts % (Manual) 70 Band Neuts % (Manual) 11 H Lymphocytes % (Manual) 16 Monocytes % (Manual) 3 Abs Neuts (Manual) 9.5 H Differential Comment . Platelet Estimate Normal Platelet Morphology Normal RBC Morphology Normal PT INR APTT Puncture Site Patient Temperature O2 Saturation ABG pH ABG pCO2 ABG pO2 ABG HCO3 ABG O2 Content ABG Base Excess ABG Methemoglobin Manny Test Hemoglobin Carboxyhemoglobin O2 Delivery Device Vent Setting Inspired O2 Critical Value POC Sodium 140 Sodium 141 POC Potassium 4.6 Potassium 4.6 POC Chloride 104 Chloride 106 Carbon Dioxide 24.5 Anion Gap 11 POC BUN 26 H BUN 21 H Creatinine 1.22 H POC Creatinine 1.2 Estimated GFR 43 L POC Glucose 193 H Random Glucose 191 H Lactic Acid 3.7 H Calcium 8.5 Phosphorus Magnesium Total Bilirubin 0.6 AST 52 H ALT 34 Alkaline Phosphatase 111 Troponin I Less than 0.02 L Total Protein 7.1 Albumin 3.2 L TSH Urine Color Urine Clarity Urine pH Ur Specific [place] Urine Protein Urine Glucose (UA) Urine Ketones Urine Occult Blood Urine Nitrate Urine Bilirubin Urine Urobilinogen Ur Leukocyte Esterase Urine RBC Urine WBC Ur Squamous Epith Cells Urine Bacteria Hyaline Casts Granular Casts Urine Mucus Nasal Screen MRSA (PCR) 01/26/18 01/26/18 01/26/18 04:10 04:18 05:45 WBC RBC Hgb POC Hgb (Calc) Hct POC Hct MCV MCH MCHC RDW Plt Count MPV Prelim Diff (Auto) Neut % (Auto) Lymph % (Auto) [place] % (Auto) Eos % (Auto) Baso % (Auto) Neut # (Auto) Lymph # (Auto) [place] # (Auto) Eos # (Auto) Baso # (Auto) WBC Differential Seg Neuts % (Manual) Band Neuts % (Manual) Lymphocytes % (Manual) Monocytes % (Manual) Abs Neuts (Manual) Differential Comment Platelet Estimate Platelet Morphology RBC Morphology PT 12.5 H INR 1.2 APTT 27.8 Puncture Site Left radial Patient Temperature 98.6 O2 Saturation 98 ABG pH 7.35 L ABG pCO2 45 H ABG pO2 335 H ABG HCO3 24 ABG O2 Content 18.6 ABG Base Excess -0.4 ABG Methemoglobin 0.6 Manny Test Present Hemoglobin 12.9 Carboxyhemoglobin 0.9 O2 Delivery Device Ventilator Vent Setting Prvc/ac Inspired O2 100 Critical Value No POC Sodium Sodium POC Potassium Potassium POC Chloride Chloride Carbon Dioxide Anion Gap POC BUN BUN Creatinine POC Creatinine Estimated GFR POC Glucose Random Glucose Lactic Acid Calcium Phosphorus Magnesium Total Bilirubin AST ALT Alkaline Phosphatase Troponin I Total Protein Albumin TSH Urine Color Yellow Urine Clarity Hazy H Urine pH 5.0 Ur Specific [place] 1.013 Urine Protein 30 H Urine Glucose (UA) Negative Urine Ketones Negative Urine Occult Blood Negative Urine Nitrate Positive H Urine Bilirubin Negative Urine Urobilinogen Less than 2 Ur Leukocyte Esterase Small H Urine RBC 2 Urine WBC 21 H Ur Squamous Epith Cells 1 Urine Bacteria Many H Hyaline Casts 19 Granular Casts 3 Urine Mucus Few H Nasal Screen MRSA (PCR) 01/26/18 01/26/18 01/26/18 08:00 11:58 12:00 WBC RBC Hgb POC Hgb (Calc) Hct POC Hct MCV MCH MCHC RDW Plt Count MPV Prelim Diff (Auto) Neut % (Auto) Lymph % (Auto) [place] % (Auto) Eos % (Auto) Baso % (Auto) Neut # (Auto) Lymph # (Auto) [place] # (Auto) Eos # (Auto) Baso # (Auto) WBC Differential Seg Neuts % (Manual) Band Neuts % (Manual) Lymphocytes % (Manual) Monocytes % (Manual) Abs Neuts (Manual) Differential Comment Platelet Estimate Platelet Morphology RBC Morphology PT INR APTT Puncture Site Patient Temperature O2 Saturation ABG pH ABG pCO2 ABG pO2 ABG HCO3 ABG O2 Content ABG Base Excess ABG Methemoglobin Manny Test Hemoglobin Carboxyhemoglobin O2 Delivery Device Vent Setting Inspired O2 Critical Value POC Sodium Sodium POC Potassium Potassium POC Chloride Chloride Carbon Dioxide Anion Gap POC BUN BUN Creatinine POC Creatinine Estimated GFR POC Glucose 97 Random Glucose Lactic Acid 2.3 H Calcium Phosphorus Magnesium Total Bilirubin AST ALT Alkaline Phosphatase Troponin I Total Protein Albumin TSH Urine Color Urine Clarity Urine pH Ur Specific [place] Urine Protein Urine Glucose (UA) Urine Ketones Urine Occult Blood Urine Nitrate Urine Bilirubin Urine Urobilinogen Ur Leukocyte Esterase Urine RBC Urine WBC Ur Squamous Epith Cells Urine Bacteria Hyaline Casts Granular Casts Urine Mucus Nasal Screen MRSA (PCR) Mrsa detected 01/26/18 01/26/18 01/26/18 12:00 12:00 12:00 WBC 10.8 RBC 4.32 Hgb 13.0 POC Hgb (Calc) Hct 39.3 POC Hct MCV 90.9 MCH 30.0 MCHC 33.0 RDW 14.7 Plt Count 153 MPV 9.0 Prelim Diff (Auto) Neut % (Auto) Lymph % (Auto) [place] % (Auto) Eos % (Auto) Baso % (Auto) Neut # (Auto) Lymph # (Auto) [place] # (Auto) Eos # (Auto) Baso # (Auto) WBC Differential Seg Neuts % (Manual) Band Neuts % (Manual) Lymphocytes % (Manual) Monocytes % (Manual) Abs Neuts (Manual) Differential Comment Platelet Estimate Platelet Morphology RBC Morphology PT 13.0 H INR 1.3 APTT 24.4 Puncture Site Patient Temperature O2 Saturation ABG pH ABG pCO2 ABG pO2 ABG HCO3 ABG O2 Content ABG Base Excess ABG Methemoglobin Manny Test Hemoglobin Carboxyhemoglobin O2 Delivery Device Vent Setting Inspired O2 Critical Value POC Sodium Sodium POC Potassium Potassium POC Chloride Chloride Carbon Dioxide Anion Gap POC BUN BUN Creatinine POC Creatinine Estimated GFR POC Glucose Random Glucose Lactic Acid Calcium Phosphorus Magnesium Total Bilirubin AST ALT Alkaline Phosphatase Troponin I 0.29 H D Total Protein Albumin TSH Urine Color Urine Clarity Urine pH Ur Specific [place] Urine Protein Urine Glucose (UA) Urine Ketones Urine Occult Blood Urine Nitrate Urine Bilirubin Urine Urobilinogen Ur Leukocyte Esterase Urine RBC Urine WBC Ur Squamous Epith Cells Urine Bacteria Hyaline Casts Granular Casts Urine Mucus Nasal Screen MRSA (PCR) 01/26/18 01/26/18 01/26/18 12:00 16:05 20:47 WBC RBC Hgb POC Hgb (Calc) Hct POC Hct MCV MCH MCHC RDW Plt Count MPV Prelim Diff (Auto) Neut % (Auto) Lymph % (Auto) [place] % (Auto) Eos % (Auto) Baso % (Auto) Neut # (Auto) Lymph # (Auto) [place] # (Auto) Eos # (Auto) Baso # (Auto) WBC Differential Seg Neuts % (Manual) Band Neuts % (Manual) Lymphocytes % (Manual) Monocytes % (Manual) Abs Neuts (Manual) Differential Comment Platelet Estimate Platelet Morphology RBC Morphology PT INR APTT 218.0 H* D Puncture Site Patient Temperature O2 Saturation ABG pH ABG pCO2 ABG pO2 ABG HCO3 ABG O2 Content ABG Base Excess ABG Methemoglobin Manny Test Hemoglobin Carboxyhemoglobin O2 Delivery Device Vent Setting Inspired O2 Critical Value POC Sodium Sodium POC Potassium Potassium POC Chloride Chloride Carbon Dioxide Anion Gap POC BUN BUN Creatinine POC Creatinine Estimated GFR POC Glucose Random Glucose Lactic Acid Calcium Phosphorus Magnesium Total Bilirubin AST ALT Alkaline Phosphatase Troponin I 0.21 H Total Protein Albumin TSH 1.550 Urine Color Urine Clarity Urine pH Ur Specific [place] Urine Protein Urine Glucose (UA) Urine Ketones Urine Occult Blood Urine Nitrate Urine Bilirubin Urine Urobilinogen Ur Leukocyte Esterase Urine RBC Urine WBC Ur Squamous Epith Cells Urine Bacteria Hyaline Casts Granular Casts Urine Mucus Nasal Screen MRSA (PCR) 01/26/18 01/27/18 01/27/18 23:10 00:04 01:10 WBC RBC Hgb POC Hgb (Calc) Hct POC Hct MCV MCH MCHC RDW Plt Count MPV Prelim Diff (Auto) Neut % (Auto) Lymph % (Auto) [place] % (Auto) Eos % (Auto) Baso % (Auto) Neut # (Auto) Lymph # (Auto) [place] # (Auto) Eos # (Auto) Baso # (Auto) WBC Differential Seg Neuts % (Manual) Band Neuts % (Manual) Lymphocytes % (Manual) Monocytes % (Manual) Abs Neuts (Manual) Differential Comment Platelet Estimate Platelet Morphology RBC Morphology PT INR APTT 61.5 H D 38.3 H D Puncture Site Patient Temperature O2 Saturation ABG pH ABG pCO2 ABG pO2 ABG HCO3 ABG O2 Content ABG Base Excess ABG Methemoglobin Manny Test Hemoglobin Carboxyhemoglobin O2 Delivery Device Vent Setting Inspired O2 Critical Value POC Sodium Sodium POC Potassium Potassium POC Chloride Chloride Carbon Dioxide Anion Gap POC BUN BUN Creatinine POC Creatinine Estimated GFR POC Glucose 115 H Random Glucose Lactic Acid Calcium Phosphorus Magnesium Total Bilirubin AST ALT Alkaline Phosphatase Troponin I Total Protein Albumin TSH Urine Color Urine Clarity Urine pH Ur Specific [place] Urine Protein Urine Glucose (UA) Urine Ketones Urine Occult Blood Urine Nitrate Urine Bilirubin Urine Urobilinogen Ur Leukocyte Esterase Urine RBC Urine WBC Ur Squamous Epith Cells Urine Bacteria Hyaline Casts Granular Casts Urine Mucus Nasal Screen MRSA (PCR) 01/27/18 01/27/18 01/27/18 01:10 04:01 04:01 WBC 6.0 RBC 3.92 L Hgb 11.6 POC Hgb (Calc) Hct 35.2 POC Hct MCV 89.9 MCH 29.7 MCHC 33.0 RDW 14.6 Plt Count 129 L MPV 9.4 Prelim Diff (Auto) Neut % (Auto) 63.9 Lymph % (Auto) 22.1 [place] % (Auto) 10.9 H Eos % (Auto) 2.6 Baso % (Auto) 0.5 Neut # (Auto) 3.8 Lymph # (Auto) 1.3 [place] # (Auto) 0.7 Eos # (Auto) 0.2 Baso # (Auto) 0.0 WBC Differential . Seg Neuts % (Manual) Band Neuts % (Manual) Lymphocytes % (Manual) Monocytes % (Manual) Abs Neuts (Manual) Differential Comment Auto diff final Platelet Estimate Platelet Morphology RBC Morphology PT 13.5 H INR 1.3 APTT Puncture Site Patient Temperature O2 Saturation ABG pH ABG pCO2 ABG pO2 ABG HCO3 ABG O2 Content ABG Base Excess ABG Methemoglobin Manny Test Hemoglobin Carboxyhemoglobin O2 Delivery Device Vent Setting Inspired O2 Critical Value POC Sodium Sodium 145 POC Potassium Potassium 3.5 D POC Chloride Chloride 108 H Carbon Dioxide 27.9 Anion Gap 9 POC BUN BUN 29 H Creatinine 1.39 H POC Creatinine Estimated GFR 37 L POC Glucose Random Glucose 95 Lactic Acid Calcium 8.8 Phosphorus 3.2 Magnesium 2.0 Total Bilirubin 1.4 H AST 35 ALT 30 Alkaline Phosphatase 97 Troponin I Total Protein 6.1 L D Albumin 2.7 L TSH Urine Color Urine Clarity Urine pH Ur Specific [place] Urine Protein Urine Glucose (UA) Urine Ketones Urine Occult Blood Urine Nitrate Urine Bilirubin Urine Urobilinogen Ur Leukocyte Esterase Urine RBC Urine WBC Ur Squamous Epith Cells Urine Bacteria Hyaline Casts Granular Casts Urine Mucus Nasal Screen MRSA (PCR) 01/27/18 05:16 WBC RBC Hgb POC Hgb (Calc) Hct POC Hct MCV MCH MCHC RDW Plt Count MPV Prelim Diff (Auto) Neut % (Auto) Lymph % (Auto) [place] % (Auto) Eos % (Auto) Baso % (Auto) Neut # (Auto) Lymph # (Auto) [place] # (Auto) Eos # (Auto) Baso # (Auto) WBC Differential Seg Neuts % (Manual) Band Neuts % (Manual) Lymphocytes % (Manual) Monocytes % (Manual) Abs Neuts (Manual) Differential Comment Platelet Estimate Platelet Morphology RBC Morphology PT INR APTT Puncture Site Patient Temperature O2 Saturation ABG pH ABG pCO2 ABG pO2 ABG HCO3 ABG O2 Content ABG Base Excess ABG Methemoglobin Manny Test Hemoglobin Carboxyhemoglobin O2 Delivery Device Vent Setting Inspired O2 Critical Value POC Sodium Sodium POC Potassium Potassium POC Chloride Chloride Carbon Dioxide Anion Gap POC BUN BUN Creatinine POC Creatinine Estimated GFR POC Glucose 106 Random Glucose Lactic Acid Calcium Phosphorus Magnesium Total Bilirubin AST ALT Alkaline Phosphatase Troponin I Total Protein Albumin TSH Urine Color Urine Clarity Urine pH Ur Specific [place] Urine Protein Urine Glucose (UA) Urine Ketones Urine Occult Blood Urine Nitrate Urine Bilirubin Urine Urobilinogen Ur Leukocyte Esterase Urine RBC Urine WBC Ur Squamous Epith Cells Urine Bacteria Hyaline Casts Granular Casts Urine Mucus Nasal Screen MRSA (PCR) Result Diagrams: 01/28/18 05:05 01/27/18 04:01 Imaging: Pulmonary Perfusion Imaging 01/26/18 00:00 CONCLUSION: 1. No significant perfusion abnormalities identified. Exam is negative for pulmonary embolus. Chest X-Ray 01/26/18 03:37 CONCLUSION: 1. Interval intubation. 2. Placement of nasogastric tube 3. Moderate cardiomegaly with no definite pulmonary edema. Head CT 01/26/18 04:43 CONCLUSION: Stable exam. No acute intracranial abnormality. . Patient/Family Conference Present at Family Conference: Pt's spouse and pt's sister Issues Discussed: * Palliative care role, purpose, approach * Additional medical, psychosocial, and spiritual history * Patients general health, functional status, and cognitive changes in the months leading up to the current hospitalization * Patient/family understanding of the current medical problems * Patient/family understanding of prognosis * Patients goals of care as best understood from advance directives and/or conversations and/or values * Current medical treatment options and benefits/burdens of those options * Likely scenarios comparing ongoing aggressive care with a transition to comfort measures only * Questions answered to the best of my ability * Palliative care contact information provided Assessment and Plan - Disease Oriented Problem List (1) Respiratory arrest (2) COPD (chronic obstructive pulmonary disease) (3) SEBASTIÁN (obstructive sleep apnea) Comment: possible malfunctioning prior to hospitalization. (4) Afib Comment: Prior hx. Pacemaker (5) DVT (deep venous thrombosis) Comment: IVC filter (6) Hypertension (7) Depression (8) Hypothyroid (9) Obesity (10) DANIELA (acute kidney injury) - Symptom Scale (1) Dyspnea 0-10 Scale: Unable to quantify (2) Anxiety 0-10 Scale: Unable to quantify Pertinent Non-Medical Issues: Psychosocial: From [facility]. Chitra is important to patient. Has a daughter who is a missionary in [place] Spiritual:Jehovah Witness Legal:Antonino Gonzalez Primary Health Care Surrogate. Rayne Petit Alternate health Care surrogate Ethical issues impacting care:none Important Contacts: Antonino Mg [phone] or [phone] Prognosis: Prognosis is guarded. 77 year old with copd and obstructive sleep apnea. Pt with respiratory failure needed resuscitation, and intubation. CPAP trials have not begun yet, but there is concern, pt would be difficulty to wean off ventilator. There is worry overall pt will not do well. Code Status: Full Code Plan: ==Capacity- none currently. pt ability to regain capacity make medical decision remains to be seen. == Health Care Surrogate. Antonino Mg. Alternate HCS. Rayne Petit == Code:Full Code == Goals of care. Spend time speaking with pt's current condition. Pt's and sister in law was at bedside. Sister in law had state is very tired and had not slept the whole night. is struggling with 's decline. [place] last time when pt was in the icu, it was s/p surgery for her fall, and she spent 11 days on the vent. At that time had told , she did not want to be on life support again. at this point in time could not acquiesce nor transiton to comfort only right now. He did say he does not want prolong ventilation and no trach and peg I review code status with pt's x 2 one time with family present, and one time alone with ., He states he does want Full Code. I review with him what cpr/shock would mean for patient, and my concern she may get most of the trauma from it and none of the benefits. Also if she need another round of resuscitation, it would likely mean prolong life support/ trach/ peg etch. is stress and exhausted, at this point could not get decision on reintubation if pt was medically extubated. At this point goc is aggressive short of peg and trach. If pt could not be wean off ventilator then he would consider transition to comfort. == symptom: dyspnea- 2nd to copd, sleep apnea. on ventilator. defer to CC. anxiety- associated to decline and discomfort. fentanyl available. == palliative Care will follow as pt's clinical condition evolves to review goc , and follow for symptom managment. Appreciation Thank you for the opportunity to participate in the care of Arti Mg. Attestation Attestation: To help prompt me to consider important information that might be impacting today's encounter and assessment, information from prior notes written by myself or my colleagues may have been "brought forward" into today's note. My signature on this note, however, is an attestation that I personally performed the exam, history, and/or decision-making noted today, and, unless otherwise indicated, the interactions with patient, family, and staff as well as the review of records all occurred today. I also attest that the listed assessment and stated plan reflect my best clinical judgment today based on the combination of historical information, prior notes, and today's exam/ interactions. When time spent is documented, it refers only to time spent today by the signer, or if indicated, combined time spent today by collaborating physician/nurse practitioner.
--- NOTE | 2018-01-27 17:07 | P.PNCC ---
Subjective Subjective Remarks/Hospital Course: 01/26: 77-year-old female resident of [facility] with past medical history of COPD, prior tobacco abuse, super morbid obesity, obstructive sleep apnea on CPAP, atrial fibrillation on chronic anticoagulation with warfarin, pacemaker, prior DVT with IVC filter, hypertension, hypothyroidism, depression who presented to [facility] emergency department via [facility] after call for respiratory distress. She was reportedly cyanotic at [facility] with no discernible pulse so CPR was initiated. After 1 minute she had a pulse and was moving. When [facility] arrived she had a pulse but was minimally responsive. She developed respiratory distress and was intubated by the hoop expander in the ambulance. CXR shows cardiomegaly without infiltrate or edema. ABG done post intubation shows pH of 7.35/PCO2 45/PO2 335/bicarb 24. She is in Afib, rate 60 and normotensive 105/59. She has been sedated on fentanyl and versed drips, but I am told she was waking up and moving purposefully. Her states that she has been at her baseline health and "doing well" for the last couple of days, though having issues with her CPAP which he believes was malfunctioning. Her states that he believed she was "DNR", however face sheet from the [facility] states FULL CODE and advanced directive places limitations for terminal condition/end stage condition/pers. veg. state. Her is her healthcare surrogate and requests DNR now for pulseless arrest, weaning for possible medical extubation, no trach. RLE in boot following distal tibial metaphysis fracture in October after states she "was dropped" during a transfer in the [place]. 01/27: Remains sedated, orally intubated on [facility] ventilation. Failed CPAP trial. Objective Vital Signs / I&O: Vital Signs 01/26/18 17:00 01/26/18 17:01 01/26/18 17:31 Temperature Pulse Rate 61 61 60 Respiratory Rate 16 16 16 Blood Pressure 120/56 L 110/50 L Pulse Oximetry 97 97 99 01/26/18 18:00 01/26/18 18:01 01/26/18 19:00 Temperature 98.8 F Pulse Rate 60 60 60 Respiratory Rate 16 16 16 Blood Pressure 106/56 L 113/55 L Pulse Oximetry 100 100 99 01/26/18 19:45 01/26/18 20:00 01/26/18 21:00 Temperature Pulse Rate 60 60 60 Respiratory Rate 16 18 16 Blood Pressure 118/62 109/51 L Pulse Oximetry 100 99 99 01/26/18 22:00 01/26/18 23:00 01/26/18 23:53 Temperature Pulse Rate 60 60 Respiratory Rate 16 16 18 Blood Pressure 119/55 L 109/54 L Pulse Oximetry 100 99 96 01/27/18 00:00 01/27/18 01:00 01/27/18 02:00 Temperature 98.9 F Pulse Rate 60 60 60 Respiratory Rate 17 16 16 Blood Pressure 118/58 L 113/54 L 119/58 L Pulse Oximetry 98 97 96 01/27/18 03:00 01/27/18 04:00 01/27/18 04:15 Temperature 98.5 F Pulse Rate 60 60 Respiratory Rate 16 16 18 Blood Pressure 116/58 L 124/58 L Pulse Oximetry 96 97 01/27/18 04:27 01/27/18 05:00 01/27/18 06:00 Temperature Pulse Rate 60 60 60 Respiratory Rate 16 17 16 Blood Pressure 114/60 79/42 L Pulse Oximetry 97 97 95 01/27/18 07:10 01/27/18 07:12 01/27/18 07:15 Temperature Pulse Rate 60 60 60 Respiratory Rate 16 16 16 Blood Pressure 137/61 150/79 H Pulse Oximetry 100 100 100 01/27/18 07:16 01/27/18 07:18 01/27/18 07:20 Temperature Pulse Rate 60 60 60 Respiratory Rate 16 16 16 Blood Pressure 152/72 H 159/78 H 156/77 H Pulse Oximetry 100 100 100 01/27/18 07:22 01/27/18 07:25 01/27/18 07:27 Temperature Pulse Rate 60 60 60 Respiratory Rate 16 16 16 Blood Pressure 165/72 H 168/72 H 174/82 H Pulse Oximetry 100 100 100 01/27/18 07:28 01/27/18 07:30 01/27/18 07:32 Temperature Pulse Rate 60 60 60 Respiratory Rate 16 16 16 Blood Pressure 176/83 H 165/87 H 167/79 H Pulse Oximetry 100 100 100 01/27/18 07:34 01/27/18 07:36 01/27/18 07:39 Temperature Pulse Rate 60 60 60 Respiratory Rate 16 16 16 Blood Pressure 175/81 H 186/86 H 176/80 H Pulse Oximetry 100 100 100 01/27/18 07:45 01/27/18 07:46 01/27/18 08:00 Temperature Pulse Rate 60 60 Respiratory Rate 16 16 16 Blood Pressure 158/64 H Pulse Oximetry 100 100 100 01/27/18 08:01 01/27/18 08:15 01/27/18 08:30 Temperature 98.7 F Pulse Rate 60 60 60 Respiratory Rate 16 16 16 Blood Pressure 131/59 L 134/62 131/58 L Pulse Oximetry 100 100 100 01/27/18 08:45 01/27/18 09:00 01/27/18 09:16 Temperature Pulse Rate 60 60 60 Respiratory Rate 16 16 16 Blood Pressure 130/62 136/64 150/72 H Pulse Oximetry 100 100 99 01/27/18 09:31 01/27/18 09:46 01/27/18 10:00 Temperature Pulse Rate 59 L 60 60 Respiratory Rate 16 16 16 Blood Pressure 119/51 L 118/55 L 108/54 L Pulse Oximetry 100 99 99 01/27/18 10:07 01/27/18 10:15 01/27/18 10:30 Temperature Pulse Rate 60 60 61 Respiratory Rate 16 16 16 Blood Pressure 122/56 L 126/51 L Pulse Oximetry 99 100 01/27/18 10:45 01/27/18 11:00 01/27/18 11:14 Temperature Pulse Rate 60 60 Respiratory Rate 16 16 16 Blood Pressure 122/56 L 130/58 L Pulse Oximetry 100 100 100 01/27/18 11:15 01/27/18 11:30 01/27/18 11:45 Temperature Pulse Rate 60 60 60 Respiratory Rate 16 16 16 Blood Pressure 124/55 L 119/58 L 118/58 L Pulse Oximetry 100 100 100 01/27/18 12:00 01/27/18 12:15 01/27/18 12:30 Temperature 98.6 F Pulse Rate 60 60 60 Respiratory Rate 16 16 16 Blood Pressure 120/59 L 121/58 L 119/57 L Pulse Oximetry 100 100 100 01/27/18 12:45 01/27/18 13:00 01/27/18 13:15 Temperature Pulse Rate 60 60 59 L Respiratory Rate 16 16 16 Blood Pressure 120/60 117/57 L 114/53 L Pulse Oximetry 100 100 100 01/27/18 13:30 0801/18 13:45 01/27/18 14:00 Temperature Pulse Rate 60 59 L 60 Respiratory Rate 16 16 16 Blood Pressure 117/58 L 119/56 L 116/58 L Pulse Oximetry 100 100 100 01/27/18 14:15 01/27/18 14:30 01/27/18 14:45 Temperature Pulse Rate 59 L 60 60 Respiratory Rate 16 16 16 Blood Pressure 109/56 L 112/56 L 112/55 L Pulse Oximetry 100 100 100 01/27/18 15:00 01/27/18 15:15 01/27/18 15:30 Temperature Pulse Rate 60 60 60 Respiratory Rate 16 16 16 Blood Pressure 113/56 L 117/54 L 115/56 L Pulse Oximetry 100 100 100 01/27/18 15:45 01/27/18 16:00 01/27/18 16:03 Temperature Pulse Rate 60 60 Respiratory Rate 16 16 16 Blood Pressure 114/57 L 112/53 L Pulse Oximetry 100 100 100 01/27/18 16:05 01/27/18 16:15 01/27/18 16:30 Temperature Pulse Rate 60 60 60 Respiratory Rate 16 16 16 Blood Pressure 116/56 L 120/57 L Pulse Oximetry 100 100 Intake & Output 01/26/18 01/27/18 01/27/18 18:59 06:59 18:59 Intake Total 690 / 690 690 / 690 550 / 550 Output Total 250 / 250 Balance 440 / 440 690 / 690 550 / 550 Weight 142.2 kg Intake: IV 600 / 600 650 / 650 550 / 550 Heparin/D5W 25,000 U/250 mL 25, 250 / 250 250 / 250 000 unit In 250 ml @ Per Protocol 8 mls/hr IV.CONT TITRATE PRN Rx#:[id number] Versed Inj 50 mg In 50 ml @ 2 100 / 100 MG/HR 2 mls/hr IV.CONT TITRATE PRN Rx#:[id number] Diprivan 1000 mg/100 ml Inj 1, 100 / 100 200 / 200 000 mg In 100 ml @ 5 MCG/KG/MIN 4.266 mls/hr IV.CONT TITRATE PRN Rx#:[id number] Zosyn 3.375 GM Premix 50 ML @ 50 / 50 50 / 50 100 / 100 100 mls/hr IV.SIG Q8H DIEGO Rx#: [id number] Vancomycin Inj 1 gm In 200 ml @ 200 / 200 200 mls/hr IV.SIG ONCE ONE Rx# :[id number] fentaNYL 10 mcg/mL Premix Drip 250 / 250 250 / 250 2,500 mcg In 250 ml @ 50 MCG/HR 5 mls/hr IV.SIG TITRATE PRN Rx #:[id number] Tube Irrigant 90 / 90 40 / 40 Output: Urine Amount (Catheter) 250 / 250 Indwelling Urethral Catheter 250 / 250 Other: Date of Last Bowel Movement 01/26/18 01/26/18 01/26/18 Weight On Admission 142.2 kg Result Diagrams: 01/27/18 04:01 01/27/18 04:01 Objective Remarks: Elderly, morbidly obese female laying in bed, sedated, orally intubated on [facility] ventilation HEENT/ Neuro: Sedated, orally intubated, Pallor present, no icterus, tongue/ mucosa moist Neck: No JVD Chest/Pulm: on [facility] vent, good air entry bilaterally, no wheezing or crackles CVS: S1-S2 regular, no murmur GI/abdomen: soft, nontender, bowel sounds sluggish Extremities: warm bilaterally, no edema Assessment and Plan - Problem List (1) Respiratory arrest Code(s): R09.2 - Respiratory arrest Status: Acute (2) Obesity Code(s): E66.9 - Obesity, unspecified Status: Acute (3) SEBASTIÁN (obstructive sleep apnea) Code(s): G47.33 - Obstructive sleep apnea (adult) (pediatric) Status: Acute (4) SEBASTIÁN on CPAP Code(s): G47.33 - Obstructive sleep apnea (adult) (pediatric); Z99.89 - Dependence on other enabling machines and devices Status: Acute (5) DANIELA (acute kidney injury) Code(s): N17.9 - Acute kidney failure, unspecified Status: Acute (6) Lactic acidemia Code(s): E87.2 - Acidosis Status: Acute - Assessment and Plan Plan: NEURO: Fentanyl drip for sedation. We will discontinue Versed drip. Use Versed as needed. Propofol can be added if needed for additional sedation. Target RASS -[address] brain prior to heparinization RESP: Acute respiratory arrest COPD Prior tobacco abuse Obstructive sleep apnea on home CPAP. Intubated in the field by EVAC. Ventilator bundle. Wean ventilator as tolerated and perform CPAP trials. Chest x-ray relatively unremarkable. PE is certainly a consideration, moderate/ high risk (prior DVT,immobilization, lower extremity fracture, INR subtherapeutic). HEr reports IV contrast allergy with hives. At this point would start with VQ for evaluation, could consider pretreatment with CTA if needed. Session with Dr. Mendez will empirically treat with heparin if CT brain is negative. We will need CPAP machine evaluated prior to discharge concern regarding malfunction. CV: PEA cardiac arrest Atrial fibrillation Pacemaker in place Lactic acidemia Suspect respiratory arrest. Check EKG. Initial troponin negative. Will trend Telemetry monitoring Obtain 2D echo Lactic acid elevated postarrest, will trend. Her kiosk sales representative is Dr. Maldonado. GI: Obesity NG tube to low intermittent wall suction. Holdine enteral feeds as planning transition to comfort measures on 01/28 FEN/RENAL: CKD stage III Hassan catheter in place. Monitor intake and output. Monitor electrolytes. Replace as indicated. ID: ?[id number] Received Zosyn and vancomycin in the emergency department. We will continue empiric treatment with Zosyn for ? UTI. Follow-up urine culture. Chest x-ray without infiltrate. Monitoring for evidence of fever, monitor CBC is adamant that she does NOT have a PCN allergy and requests that "be removed from the record". She did receive Zosyn in the ED without untoward effect. HEME: IVC filter in place History of DVT On chronic coagulation with warfarin for atrial fibrillation. INR is subtherapeutic at 1.2. There is based on presentation there is concern for PE. Will treat empirically with heparin drip. Hold warfarin for now pending w/u. ENDO: Hypothyroid Follow-up TSH. Synthroid 25 mcg OG daily Hyperglycemia Monitor bedside glucose every 6h and use low-dose insulin sliding scale as indicated. PROPH: Heparin drip will provide DVT prophylaxis. Famotidine for stress ulcer prophylaxis. ACCESS: Peripheral IV providing adequate access Patient's is her designated healthcare surrogate. He states she would wish to be DO NOT RESUSCITATE in of pulseless arrest. He agrees with continuing mechanical ventilation and continuing attempts at weaning. If she could not be successfully weaned to extubation he states she would not want prolonged mechanical ventilation or trach. Based on this discussion have change CODE STATUS to alternate code, intubation only. Has been requested that Dr. Zacarias be notified of her admission. Staff at [facility] states that he has been notified of her change in condition. Patient is critically ill with respiratory arrest resulting in intubation with multiple comorbidities and multiorgan dysfunction.. She is at high risk for further deterioration. She has a end-stage condition and has been bedbound for the last 2 years according to her . Patient's has decided to make her DNR status and is thinking of possible withdrawal and transition to comfort measures tomorrow. Critical care time 40 minutes exclusive of separately billable procedures
[2018-01-27 20:02] VITALS: PULSE 60
[2018-01-28 00:29] VITALS: RESP 16
[2018-01-28] MEDS: Propofol 1000 mg/100 ml Inj 1,000 MG/100 ML BOTTLE IV.CONT PRN ×4 (01:30→13:05)
[2018-01-28] MEDS: Insulin NovoLIN Regular Correctional Sugar Inj SQ SCH ×3 (01:31→15:08)
[2018-01-28] MEDS: Chlorhexidine Gluconate 2% 1 Pack (2 Cloths) TOPICAL SCH (05:35)
[2018-01-28] MEDS: Piperacil/Tazo 3.375 GM Premix 50 ML IV.SIG SCH ×2 (05:35→15:08)
[2018-01-28 06:34] VITALS: TEMP 98.9
[2018-01-28 07:31] VITALS: O2SAT 100
[2018-01-28 08:26] LABS: Hematocrit 36.7 % (35.0-46.0); Mean Corpuscular HGB Conc 32.7 % (32.0-36.0); Mean Corpuscular Hemoglobin 29.3 pg (27.0-34.0); Mean Corpuscular Volume 89.6 fL (80.0-100.0); Mean Platelet Volume 9.3 fL (7.0-11.0); Platelet Count 128 th/mm3 (150-450); Red Cell Distribution Width 14.9 % (11.6-17.2); White Blood Count 5.8 th/mm3 (4.0-11.0)
[2018-01-28] MEDS: Senna/Docusate Sodium 8.6/50 MG Tablet PO SCH (08:54)
[2018-01-28] MEDS: Famotidine PF Inj 20 MG/2 ML Vial IV.PUSH SCH (08:54)
--- NOTE | 2018-01-28 09:50 | P.PNPAL ---
Reason for Visit Reason for visit: a. To assist with evaluation and management of symptoms including:pain,anxiety , dyspnea b. To assist medical decision maker(s) with: better understanding of current medical conditions; weighing benefits/burdens of medical treatment options; making medical treatment decisions. Subjective Subjective/Interval History: Patient this morning became hypotensive. Patient was in distress, per family grimacing and groaning. Family/Friend Interactions: Pt's seeing her change his mind and ask pt to be change back to DNR earlier this morning. When I arrived, said that she did not want life support to begin with. He stated he does not want to suffer any longer and wants to transition to comfort care today. He was amenable to compassionate withdraw of life support at around 4 pm. Spoke and discuss comfort meds in which spouse is amenable to atc comfort meds to ensure comfort(dyspnea, anxiety, pain). Exhibits B and C completed. Objective Vital Signs: Vital Signs 01/27/18 09:46 01/27/18 10:00 01/27/18 10:07 Temperature Pulse Rate 60 60 60 Respiratory Rate 16 16 16 Blood Pressure 118/55 L 108/54 L Pulse Oximetry 99 99 01/27/18 10:15 01/27/18 10:30 01/27/18 10:45 Temperature Pulse Rate 60 61 60 Respiratory Rate 16 16 16 Blood Pressure 122/56 L 126/51 L 122/56 L Pulse Oximetry 99 100 100 01/27/18 11:00 01/27/18 11:14 01/27/18 11:15 Temperature Pulse Rate 60 60 Respiratory Rate 16 16 16 Blood Pressure 130/58 L 124/55 L Pulse Oximetry 100 100 100 01/27/18 11:30 01/27/18 11:45 01/27/18 12:00 Temperature 98.6 F Pulse Rate 60 60 60 Respiratory Rate 16 16 16 Blood Pressure 119/58 L 118/58 L 120/59 L Pulse Oximetry 100 100 100 01/27/18 12:15 01/27/18 12:30 01/27/18 12:45 Temperature Pulse Rate 60 60 60 Respiratory Rate 16 16 16 Blood Pressure 121/58 L 119/57 L 120/60 Pulse Oximetry 100 100 100 01/27/18 13:00 01/27/18 13:15 01/27/18 13:30 Temperature Pulse Rate 60 59 L 60 Respiratory Rate 16 16 16 Blood Pressure 117/57 L 114/53 L 117/58 L Pulse Oximetry 100 100 100 01/27/18 13:45 01/27/18 14:00 01/27/18 14:15 Temperature Pulse Rate 59 L 60 59 L Respiratory Rate 16 16 16 Blood Pressure 119/56 L 116/58 L 109/56 L Pulse Oximetry 100 100 100 01/27/18 14:30 01/27/18 14:45 01/27/18 15:00 Temperature Pulse Rate 60 60 60 Respiratory Rate 16 16 16 Blood Pressure 112/56 L 112/55 L 113/56 L Pulse Oximetry 100 100 100 01/27/18 15:15 01/27/18 15:30 01/27/18 15:45 Temperature Pulse Rate 60 60 60 Respiratory Rate 16 16 16 Blood Pressure 117/54 L 115/56 L 114/57 L Pulse Oximetry 100 100 100 01/27/18 16:00 01/27/18 16:03 01/27/18 16:05 Temperature Pulse Rate 60 60 Respiratory Rate 16 16 16 Blood Pressure 112/53 L Pulse Oximetry 100 100 01/27/18 16:15 01/27/18 16:30 01/27/18 16:45 Temperature Pulse Rate 60 60 60 Respiratory Rate 16 16 16 Blood Pressure 116/56 L 120/57 L 123/56 L Pulse Oximetry 100 100 100 01/27/18 17:00 01/27/18 17:15 01/27/18 17:30 Temperature Pulse Rate 60 60 60 Respiratory Rate 16 16 16 Blood Pressure 122/57 L 125/56 L 129/58 L Pulse Oximetry 100 100 90 L 01/27/18 17:45 01/27/18 18:00 01/27/18 19:00 Temperature Pulse Rate 60 59 L 60 Respiratory Rate 16 16 16 Blood Pressure 129/59 L 126/57 L 153/69 H Pulse Oximetry 100 100 100 01/27/18 19:51 01/27/18 20:00 01/27/18 20:01 Temperature 98.5 F Pulse Rate 60 60 Respiratory Rate 17 16 16 Blood Pressure 130/76 Pulse Oximetry 100 100 01/27/18 21:00 01/27/18 22:00 01/27/18 23:00 Temperature Pulse Rate 60 60 60 Respiratory Rate 18 16 16 Blood Pressure 133/66 105/53 L 111/62 Pulse Oximetry 96 100 100 08/02/18 00:00 01/28/18 00:30 01/28/18 01:00 Temperature 98.3 F Pulse Rate 60 60 Respiratory Rate 16 16 16 Blood Pressure 104/53 L 96/52 L Pulse Oximetry 100 100 100 01/28/18 02:00 01/28/18 03:00 01/28/18 03:40 Temperature Pulse Rate 59 L 60 60 Respiratory Rate 16 16 16 Blood Pressure 101/50 L 97/51 L Pulse Oximetry 99 98 98 01/28/18 04:00 01/28/18 05:00 01/28/18 06:00 Temperature 98.9 F Pulse Rate 60 60 60 Respiratory Rate 16 16 16 Blood Pressure 94/55 L 96/46 L 87/57 L Pulse Oximetry 98 100 98 01/28/18 07:25 Temperature Pulse Rate 60 Respiratory Rate 16 Blood Pressure Pulse Oximetry 100 Intake & Output 01/27/18 01/28/18 01/28/18 18:59 06:59 18:59 Intake Total 990 / 990 490 / 490 Output Total 800 / 800 650 / 650 Balance 190 / 190 -160 / -160 Weight 145.1 kg Intake: IV 900 / 900 450 / 450 Heparin/D5W 25,000 U/250 mL 25, 250 / 250 000 unit In 250 ml @ Per Protocol 8 mls/hr IV.CONT TITRATE PRN Rx#:[id number] Diprivan 1000 mg/100 ml Inj 1, 300 / 300 400 / 400 000 mg In 100 ml @ 5 MCG/KG/MIN 4.266 mls/hr IV.CONT TITRATE PRN Rx#:[id number] Zosyn 3.375 GM Premix 50 ML @ 100 / 100 50 / 50 100 mls/hr IV.SIG Q8H DIEGO Rx#: [id number] fentaNYL 10 mcg/mL Premix Drip 250 / 250 2,500 mcg In 250 ml @ 50 MCG/HR 5 mls/hr IV.SIG TITRATE PRN Rx #:[id number] Tube Irrigant 90 / 90 40 / 40 Output: Urine Amount (Catheter) 550 / 550 650 / 650 Indwelling Urethral Catheter 550 / 550 650 / 650 Gastric Drainage 250 / 250 Oral Orogastric Tube 250 / 250 Other: Date of Last Bowel Movement 01/26/18 01/26/18 Physical Exam: CONSTITUTIONAL/GENERAL: Intubated and sedated, obese habitius,. TUBES/LINES/DRAINS:Et tube, PIV SKIN: No jaundice, rashes, or lesions. Ecchymoses on upper extremities. No wounds seen anteriorly. Skin temperature appropriate. Not diaphoretic. HEAD: Atraumatic. Normocephalic. EYES: Pupils equal and round and reactive. No injection or drainage. Fundi not examined. ENT: Nose without bleeding or purulent drainage. Throat ET tube NECK: Trachea midline. Supple, nontender. CARDIOVASCULAR: Regular rate and rhythm without murmurs, gallops, or rubs. No JVD. Peripheral pulses symmetric. RESPIRATORY/CHEST: Symmetric, expiratory wheezing heard. GASTROINTESTINAL: Abdomen soft, non-tender,distended. No hepato-splenomegaly, or palpable masses. No guarding. Bowel sounds present. GENITOURINARY: Without palpable bladder distension. Hassan catheter in place. MUSCULOSKELETAL: Extremities without clubbing, cyanosis, or edema. LYMPHATICS: No palpable cervical or supraclavicular adenopathy. NEUROLOGICAL: intubated and sedated PSYCHIATRIC: could not examine due to level of mental status. Diagnostic Tests Laboratory: Laboratory Results - last 72 hr 01/26/18 01/26/18 01/26/18 04:00 04:00 04:00 WBC 11.7 H RBC 4.67 Hgb 13.7 POC Hgb (Calc) 13.6 Hct 42.3 POC Hct 40.0 MCV 90.5 MCH 29.3 MCHC 32.4 RDW 14.8 Plt Count 199 MPV 9.4 Prelim Diff (Auto) Slide review pending Neut % (Auto) 76.4 H Lymph % (Auto) 15.2 Cole % (Auto) 5.2 Eos % (Auto) 2.4 Baso % (Auto) 0.8 Neut # (Auto) 8.9 H Lymph # (Auto) 1.8 Cole # (Auto) 0.6 Eos # (Auto) 0.3 Baso # (Auto) 0.1 WBC Differential Manual diff final Seg Neuts % (Manual) 70 Band Neuts % (Manual) 11 H Lymphocytes % (Manual) 16 Monocytes % (Manual) 3 Abs Neuts (Manual) 9.5 H Differential Comment . Platelet Estimate Normal Platelet Morphology Normal RBC Morphology Normal PT INR APTT Puncture Site Patient Temperature O2 Saturation ABG pH ABG pCO2 ABG pO2 ABG HCO3 ABG O2 Content ABG Base Excess ABG Methemoglobin Manny Test Hemoglobin Carboxyhemoglobin O2 Delivery Device Vent Setting Inspired O2 Critical Value POC Sodium 140 Sodium 141 POC Potassium 4.6 Potassium 4.6 POC Chloride 104 Chloride 106 Carbon Dioxide 24.5 Anion Gap 11 POC BUN 26 H BUN 21 H Creatinine 1.22 H POC Creatinine 1.2 Estimated GFR 43 L POC Glucose 193 H Random Glucose 191 H Lactic Acid 3.7 H Calcium 8.5 Phosphorus Magnesium Total Bilirubin 0.6 AST 52 H ALT 34 Alkaline Phosphatase 111 Troponin I Less than 0.02 L Total Protein 7.1 Albumin 3.2 L TSH Urine Color Urine Clarity Urine pH Ur Specific [place] Urine Protein Urine Glucose (UA) Urine Ketones Urine Occult Blood Urine Nitrate Urine Bilirubin Urine Urobilinogen Ur Leukocyte Esterase Urine RBC Urine WBC Ur Squamous Epith Cells Urine Bacteria Hyaline Casts Granular Casts Urine Mucus Nasal Screen MRSA (PCR) 01/26/18 01/26/18 01/26/18 04:10 04:18 05:45 WBC RBC Hgb POC Hgb (Calc) Hct POC Hct MCV MCH MCHC RDW Plt Count MPV Prelim Diff (Auto) Neut % (Auto) Lymph % (Auto) Cole % (Auto) Eos % (Auto) Baso % (Auto) Neut # (Auto) Lymph # (Auto) Cole # (Auto) Eos # (Auto) Baso # (Auto) WBC Differential Seg Neuts % (Manual) Band Neuts % (Manual) Lymphocytes % (Manual) Monocytes % (Manual) Abs Neuts (Manual) Differential Comment Platelet Estimate Platelet Morphology RBC Morphology PT 12.5 H INR 1.2 APTT 27.8 Puncture Site Left radial Patient Temperature 98.6 O2 Saturation 98 ABG pH 7.35 L ABG pCO2 45 H ABG pO2 335 H ABG HCO3 24 ABG O2 Content 18.6 ABG Base Excess -0.4 ABG Methemoglobin 0.6 Manny Test Present Hemoglobin 12.9 Carboxyhemoglobin 0.9 O2 Delivery Device Ventilator Vent Setting Prvc/ac Inspired O2 100 Critical Value No POC Sodium Sodium POC Potassium Potassium POC Chloride Chloride Carbon Dioxide Anion Gap POC BUN BUN Creatinine POC Creatinine Estimated GFR POC Glucose Random Glucose Lactic Acid Calcium Phosphorus Magnesium Total Bilirubin AST ALT Alkaline Phosphatase Troponin I Total Protein Albumin TSH Urine Color Yellow Urine Clarity Hazy H Urine pH 5.0 Ur Specific [place] 1.013 Urine Protein 30 H Urine Glucose (UA) Negative Urine Ketones Negative Urine Occult Blood Negative Urine Nitrate Positive H Urine Bilirubin Negative Urine Urobilinogen Less than 2 Ur Leukocyte Esterase Small H Urine RBC 2 Urine WBC 21 H Ur Squamous Epith Cells 1 Urine Bacteria Many H Hyaline Casts 19 Granular Casts 3 Urine Mucus Few H Nasal Screen MRSA (PCR) 01/26/18 01/26/18 01/26/18 08:00 11:58 12:00 WBC RBC Hgb POC Hgb (Calc) Hct POC Hct MCV MCH MCHC RDW Plt Count MPV Prelim Diff (Auto) Neut % (Auto) Lymph % (Auto) Cole % (Auto) Eos % (Auto) Baso % (Auto) Neut # (Auto) Lymph # (Auto) Cole # (Auto) Eos # (Auto) Baso # (Auto) WBC Differential Seg Neuts % (Manual) Band Neuts % (Manual) Lymphocytes % (Manual) Monocytes % (Manual) Abs Neuts (Manual) Differential Comment Platelet Estimate Platelet Morphology RBC Morphology PT INR APTT Puncture Site Patient Temperature O2 Saturation ABG pH ABG pCO2 ABG pO2 ABG HCO3 ABG O2 Content ABG Base Excess ABG Methemoglobin Manny Test Hemoglobin Carboxyhemoglobin O2 Delivery Device Vent Setting Inspired O2 Critical Value POC Sodium Sodium POC Potassium Potassium POC Chloride Chloride Carbon Dioxide Anion Gap POC BUN BUN Creatinine POC Creatinine Estimated GFR POC Glucose 97 Random Glucose Lactic Acid 2.3 H Calcium Phosphorus Magnesium Total Bilirubin AST ALT Alkaline Phosphatase Troponin I Total Protein Albumin TSH Urine Color Urine Clarity Urine pH Ur Specific [place] Urine Protein Urine Glucose (UA) Urine Ketones Urine Occult Blood Urine Nitrate Urine Bilirubin Urine Urobilinogen Ur Leukocyte Esterase Urine RBC Urine WBC Ur Squamous Epith Cells Urine Bacteria Hyaline Casts Granular Casts Urine Mucus Nasal Screen MRSA (PCR) Mrsa detected 01/26/18 01/26/18 01/26/18 12:00 12:00 12:00 WBC 10.8 RBC 4.32 Hgb 13.0 POC Hgb (Calc) Hct 39.3 POC Hct MCV 90.9 MCH 30.0 MCHC 33.0 RDW 14.7 Plt Count 153 MPV 9.0 Prelim Diff (Auto) Neut % (Auto) Lymph % (Auto) Cole % (Auto) Eos % (Auto) Baso % (Auto) Neut # (Auto) Lymph # (Auto) Cole # (Auto) Eos # (Auto) Baso # (Auto) WBC Differential Seg Neuts % (Manual) Band Neuts % (Manual) Lymphocytes % (Manual) Monocytes % (Manual) Abs Neuts (Manual) Differential Comment Platelet Estimate Platelet Morphology RBC Morphology PT 13.0 H INR 1.3 APTT 24.4 Puncture Site Patient Temperature O2 Saturation ABG pH ABG pCO2 ABG pO2 ABG HCO3 ABG O2 Content ABG Base Excess ABG Methemoglobin Manny Test Hemoglobin Carboxyhemoglobin O2 Delivery Device Vent Setting Inspired O2 Critical Value POC Sodium Sodium POC Potassium Potassium POC Chloride Chloride Carbon Dioxide Anion Gap POC BUN BUN Creatinine POC Creatinine Estimated GFR POC Glucose Random Glucose Lactic Acid Calcium Phosphorus Magnesium Total Bilirubin AST ALT Alkaline Phosphatase Troponin I 0.29 H D Total Protein Albumin TSH Urine Color Urine Clarity Urine pH Ur Specific [place] Urine Protein Urine Glucose (UA) Urine Ketones Urine Occult Blood Urine Nitrate Urine Bilirubin Urine Urobilinogen Ur Leukocyte Esterase Urine RBC Urine WBC Ur Squamous Epith Cells Urine Bacteria Hyaline Casts Granular Casts Urine Mucus Nasal Screen MRSA (PCR) 01/26/18 01/26/18 01/26/18 12:00 16:05 20:47 WBC RBC Hgb POC Hgb (Calc) Hct POC Hct MCV MCH MCHC RDW Plt Count MPV Prelim Diff (Auto) Neut % (Auto) Lymph % (Auto) Cole % (Auto) Eos % (Auto) Baso % (Auto) Neut # (Auto) Lymph # (Auto) Cole # (Auto) Eos # (Auto) Baso # (Auto) WBC Differential Seg Neuts % (Manual) Band Neuts % (Manual) Lymphocytes % (Manual) Monocytes % (Manual) Abs Neuts (Manual) Differential Comment Platelet Estimate Platelet Morphology RBC Morphology PT INR APTT 218.0 H* D Puncture Site Patient Temperature O2 Saturation ABG pH ABG pCO2 ABG pO2 ABG HCO3 ABG O2 Content ABG Base Excess ABG Methemoglobin Manny Test Hemoglobin Carboxyhemoglobin O2 Delivery Device Vent Setting Inspired O2 Critical Value POC Sodium Sodium POC Potassium Potassium POC Chloride Chloride Carbon Dioxide Anion Gap POC BUN BUN Creatinine POC Creatinine Estimated GFR POC Glucose Random Glucose Lactic Acid Calcium Phosphorus Magnesium Total Bilirubin AST ALT Alkaline Phosphatase Troponin I 0.21 H Total Protein Albumin TSH 1.550 Urine Color Urine Clarity Urine pH Ur Specific [place] Urine Protein Urine Glucose (UA) Urine Ketones Urine Occult Blood Urine Nitrate Urine Bilirubin Urine Urobilinogen Ur Leukocyte Esterase Urine RBC Urine WBC Ur Squamous Epith Cells Urine Bacteria Hyaline Casts Granular Casts Urine Mucus Nasal Screen MRSA (PCR) 01/26/18 01/27/18 01/27/18 23:10 00:04 01:10 WBC RBC Hgb POC Hgb (Calc) Hct POC Hct MCV MCH MCHC RDW Plt Count MPV Prelim Diff (Auto) Neut % (Auto) Lymph % (Auto) Cole % (Auto) Eos % (Auto) Baso % (Auto) Neut # (Auto) Lymph # (Auto) Cole # (Auto) Eos # (Auto) Baso # (Auto) WBC Differential Seg Neuts % (Manual) Band Neuts % (Manual) Lymphocytes % (Manual) Monocytes % (Manual) Abs Neuts (Manual) Differential Comment Platelet Estimate Platelet Morphology RBC Morphology PT INR APTT 61.5 H D 38.3 H D Puncture Site Patient Temperature O2 Saturation ABG pH ABG pCO2 ABG pO2 ABG HCO3 ABG O2 Content ABG Base Excess ABG Methemoglobin Manny Test Hemoglobin Carboxyhemoglobin O2 Delivery Device Vent Setting Inspired O2 Critical Value POC Sodium Sodium POC Potassium Potassium POC Chloride Chloride Carbon Dioxide Anion Gap POC BUN BUN Creatinine POC Creatinine Estimated GFR POC Glucose 115 H Random Glucose Lactic Acid Calcium Phosphorus Magnesium Total Bilirubin AST ALT Alkaline Phosphatase Troponin I Total Protein Albumin TSH Urine Color Urine Clarity Urine pH Ur Specific [place] Urine Protein Urine Glucose (UA) Urine Ketones Urine Occult Blood Urine Nitrate Urine Bilirubin Urine Urobilinogen Ur Leukocyte Esterase Urine RBC Urine WBC Ur Squamous Epith Cells Urine Bacteria Hyaline Casts Granular Casts Urine Mucus Nasal Screen MRSA (PCR) 01/27/18 01/27/18 01/27/18 01:10 04:01 04:01 WBC 6.0 RBC 3.92 L Hgb 11.6 POC Hgb (Calc) Hct 35.2 POC Hct MCV 89.9 MCH 29.7 MCHC 33.0 RDW 14.6 Plt Count 129 L MPV 9.4 Prelim Diff (Auto) Neut % (Auto) 63.9 Lymph % (Auto) 22.1 Cole % (Auto) 10.9 H Eos % (Auto) 2.6 Baso % (Auto) 0.5 Neut # (Auto) 3.8 Lymph # (Auto) 1.3 Cole # (Auto) 0.7 Eos # (Auto) 0.2 Baso # (Auto) 0.0 WBC Differential . Seg Neuts % (Manual) Band Neuts % (Manual) Lymphocytes % (Manual) Monocytes % (Manual) Abs Neuts (Manual) Differential Comment Auto diff final Platelet Estimate Platelet Morphology RBC Morphology PT 13.5 H INR 1.3 APTT Puncture Site Patient Temperature O2 Saturation ABG pH ABG pCO2 ABG pO2 ABG HCO3 ABG O2 Content ABG Base Excess ABG Methemoglobin Manny Test Hemoglobin Carboxyhemoglobin O2 Delivery Device Vent Setting Inspired O2 Critical Value POC Sodium Sodium 145 POC Potassium Potassium 3.5 D POC Chloride Chloride 108 H Carbon Dioxide 27.9 Anion Gap 9 POC BUN BUN 29 H Creatinine 1.39 H POC Creatinine Estimated GFR 37 L POC Glucose Random Glucose 95 Lactic Acid Calcium 8.8 Phosphorus 3.2 Magnesium 2.0 Total Bilirubin 1.4 H AST 35 ALT 30 Alkaline Phosphatase 97 Troponin I Total Protein 6.1 L D Albumin 2.7 L TSH Urine Color Urine Clarity Urine pH Ur Specific [place] Urine Protein Urine Glucose (UA) Urine Ketones Urine Occult Blood Urine Nitrate Urine Bilirubin Urine Urobilinogen Ur Leukocyte Esterase Urine RBC Urine WBC Ur Squamous Epith Cells Urine Bacteria Hyaline Casts Granular Casts Urine Mucus Nasal Screen MRSA (PCR) 01/27/18 01/27/18 01/27/18 05:16 11:41 11:55 WBC RBC Hgb POC Hgb (Calc) Hct POC Hct MCV MCH MCHC RDW Plt Count MPV Prelim Diff (Auto) Neut % (Auto) Lymph % (Auto) Cole % (Auto) Eos % (Auto) Baso % (Auto) Neut # (Auto) Lymph # (Auto) Cole # (Auto) Eos # (Auto) Baso # (Auto) WBC Differential Seg Neuts % (Manual) Band Neuts % (Manual) Lymphocytes % (Manual) Monocytes % (Manual) Abs Neuts (Manual) Differential Comment Platelet Estimate Platelet Morphology RBC Morphology PT INR APTT 64.3 H D Puncture Site Patient Temperature O2 Saturation ABG pH ABG pCO2 ABG pO2 ABG HCO3 ABG O2 Content ABG Base Excess ABG Methemoglobin Manny Test Hemoglobin Carboxyhemoglobin O2 Delivery Device Vent Setting Inspired O2 Critical Value POC Sodium Sodium POC Potassium Potassium POC Chloride Chloride Carbon Dioxide Anion Gap POC BUN BUN Creatinine POC Creatinine Estimated GFR POC Glucose 106 120 H Random Glucose Lactic Acid Calcium Phosphorus Magnesium Total Bilirubin AST ALT Alkaline Phosphatase Troponin I Total Protein Albumin TSH Urine Color Urine Clarity Urine pH Ur Specific [place] Urine Protein Urine Glucose (UA) Urine Ketones Urine Occult Blood Urine Nitrate Urine Bilirubin Urine Urobilinogen Ur Leukocyte Esterase Urine RBC Urine WBC Ur Squamous Epith Cells Urine Bacteria Hyaline Casts Granular Casts Urine Mucus Nasal Screen MRSA (PCR) 01/28/18 01/28/18 01/28/18 00:16 01:15 05:05 WBC 5.8 RBC 4.10 Hgb 12.0 POC Hgb (Calc) Hct 36.7 POC Hct MCV 89.6 MCH 29.3 MCHC 32.7 RDW 14.9 Plt Count 128 L MPV 9.3 Prelim Diff (Auto) Neut % (Auto) Lymph % (Auto) Cole % (Auto) Eos % (Auto) Baso % (Auto) Neut # (Auto) Lymph # (Auto) Cole # (Auto) Eos # (Auto) Baso # (Auto) WBC Differential Seg Neuts % (Manual) Band Neuts % (Manual) Lymphocytes % (Manual) Monocytes % (Manual) Abs Neuts (Manual) Differential Comment Platelet Estimate Platelet Morphology RBC Morphology PT INR APTT 28.5 D Puncture Site Patient Temperature O2 Saturation ABG pH ABG pCO2 ABG pO2 ABG HCO3 ABG O2 Content ABG Base Excess ABG Methemoglobin Manny Test Hemoglobin Carboxyhemoglobin O2 Delivery Device Vent Setting Inspired O2 Critical Value POC Sodium Sodium POC Potassium Potassium POC Chloride Chloride Carbon Dioxide Anion Gap POC BUN BUN Creatinine POC Creatinine Estimated GFR POC Glucose 104 Random Glucose Lactic Acid Calcium Phosphorus Magnesium Total Bilirubin AST ALT Alkaline Phosphatase Troponin I Total Protein Albumin TSH Urine Color Urine Clarity Urine pH Ur Specific [place] Urine Protein Urine Glucose (UA) Urine Ketones Urine Occult Blood Urine Nitrate Urine Bilirubin Urine Urobilinogen Ur Leukocyte Esterase Urine RBC Urine WBC Ur Squamous Epith Cells Urine Bacteria Hyaline Casts Granular Casts Urine Mucus Nasal Screen MRSA (PCR) 01/28/18 05:35 WBC RBC Hgb POC Hgb (Calc) Hct POC Hct MCV MCH MCHC RDW Plt Count MPV Prelim Diff (Auto) Neut % (Auto) Lymph % (Auto) Cole % (Auto) Eos % (Auto) Baso % (Auto) Neut # (Auto) Lymph # (Auto) Cole # (Auto) Eos # (Auto) Baso # (Auto) WBC Differential Seg Neuts % (Manual) Band Neuts % (Manual) Lymphocytes % (Manual) Monocytes % (Manual) Abs Neuts (Manual) Differential Comment Platelet Estimate Platelet Morphology RBC Morphology PT INR APTT Puncture Site Patient Temperature O2 Saturation ABG pH ABG pCO2 ABG pO2 ABG HCO3 ABG O2 Content ABG Base Excess ABG Methemoglobin Manny Test Hemoglobin Carboxyhemoglobin O2 Delivery Device Vent Setting Inspired O2 Critical Value POC Sodium Sodium POC Potassium Potassium POC Chloride Chloride Carbon Dioxide Anion Gap POC BUN BUN Creatinine POC Creatinine Estimated GFR POC Glucose 119 H Random Glucose Lactic Acid Calcium Phosphorus Magnesium Total Bilirubin AST ALT Alkaline Phosphatase Troponin I Total Protein Albumin TSH Urine Color Urine Clarity Urine pH Ur Specific [place] Urine Protein Urine Glucose (UA) Urine Ketones Urine Occult Blood Urine Nitrate Urine Bilirubin Urine Urobilinogen Ur Leukocyte Esterase Urine RBC Urine WBC Ur Squamous Epith Cells Urine Bacteria Hyaline Casts Granular Casts Urine Mucus Nasal Screen MRSA (PCR) Result Diagrams: 01/28/18 05:05 01/27/18 04:01 Microbiology: Microbiology 01/26/18 04:00 Aerobic Blood Culture - Preliminary Blood - Peripheral No growth in 1 day Anaerobic Blood Culture - Preliminary No growth in 1 day 01/26/18 03:55 Aerobic Blood Culture - Preliminary Blood - Peripheral No growth in 1 day Anaerobic Blood Culture - Preliminary No growth in 1 day Assessment and Plan - Disease Oriented Problem List (1) Respiratory arrest (2) COPD (chronic obstructive pulmonary disease) (3) SEBASTIÁN (obstructive sleep apnea) Comment: possible malfunctioning prior to hospitalization. (4) Afib Comment: Prior hx. Pacemaker (5) DVT (deep venous thrombosis) Comment: IVC filter (6) Hypertension (7) Depression (8) Hypothyroid (9) Obesity (10) DANIELA (acute kidney injury) - Symptom Scale (1) Dyspnea 0-10 Scale: Unable to quantify (2) Anxiety 0-10 Scale: Unable to quantify (3) Pain 0-10 Scale: Unable to quantify Pertinent Non-Medical Issues: Psychosocial:Originally from [place]. Has a daughter who lives in [place]. Spiritual:[employer] Witness (Chitra is important to patient) No blood transfusion. Legal:Antonino Gonzalez Primary Health Care Surrogate. Rayne Petit [facility] health Care surrogate Ethical issues impacting care:none Important Contacts: Antonino Mg [phone] or [phone] Prognosis: Prognosis is critical, 77 year old with copd and obstructive sleep apnea. Pt with respiratory failure needing resucitation and intubation. Pt has not pass cpap trials and difficult to wean. Vitals became unstable earlier today. Functional recovery is poor. Code Status: No Code DNR Plan: ==Capacity- none currently. pt ability to regain capacity make medical decision remains to be seen. == Health Care Surrogate. Antonino Mg. Alternate HCS. Rayne Petit == Code:Full Code == Goals of care. Pt's spouse yesterday was understandably stress, tired and has difficulty with pt's decline. Pt's seeing her in distress change his mind, and had ask pt to be change back to DNR earlier this morning. When I arrived, said that "she did not want life support to begin with. " He stated he does not want pt to suffer any longer and wants to transition to comfort care today. Pt's spouse made decision for compassionate withdraw of life support at around 4 pm. Spoke and discuss comfort meds in which spouse is amenable to atc comfort meds to ensure comfort(dyspnea, anxiety, pain). Exhibits B and C completed. == symptom: dyspnea- 2nd to copd, sleep apnea. on ventilator. compassionate withdrawl from life support. morphine, ativan available anxiety- associated to decline and discomfort. fentanyl available, morphine, ativan available. pain- intubated, general debility- fentanyl, ativan, morphine available. == palliative Care will follow as pt's clinical condition evolves to review goc , and follow for symptom managment.
[2018-01-28] MEDS: fentaNYL 10 mcg/mL Premix Drip 2,500 MCG/250 ML BAG IV.SIG PRN (10:35)
--- NOTE | 2018-01-28 12:37 | P.PNCC ---
Subjective Subjective Remarks/Hospital Course: 01/26: 77-year-old female resident of [facility] with past medical history of COPD, prior tobacco abuse, super morbid obesity, obstructive sleep apnea on CPAP, atrial fibrillation on chronic anticoagulation with warfarin, pacemaker, prior DVT with IVC filter, hypertension, hypothyroidism, depression who presented to [facility] emergency department via [facility] after call for respiratory distress. She was reportedly cyanotic at [facility] with no discernible pulse so CPR was initiated. After 1 minute she had a pulse and was moving. When [facility] arrived she had a pulse but was minimally responsive. She developed respiratory distress and was intubated by the firefighter type one in the ambulance. CXR shows cardiomegaly without infiltrate or edema. ABG done post intubation shows pH of 7.35/PCO2 45/PO2 335/bicarb 24. She is in Afib, rate 60 and normotensive 105/59. She has been sedated on fentanyl and versed drips, but I am told she was waking up and moving purposefully. Her states that she has been at her baseline health and "doing well" for the last couple of days, though having issues with her CPAP which he believes was malfunctioning. Her states that he believed she was "DNR", however face sheet from the [facility] states FULL CODE and advanced directive places limitations for terminal condition/end stage condition/pers. veg. state. Her is her healthcare surrogate and requests DNR now for pulseless arrest, weaning for possible medical extubation, no trach. RLE in boot following distal tibial metaphysis fracture in October after states she "was dropped" during a transfer in the [place]. 01/27: Remains sedated, [facility] Failed CPAP trial. 01/28: Sedated, orally intubated on mechanical ventilation. Episode of hypotension this morning. Patient's wants to transition to comfort measures later today. Objective Vital Signs / I&O: Vital Signs 01/27/18 12:45 01/27/18 13:00 01/27/18 13:15 Temperature Pulse Rate 60 60 59 L Respiratory Rate 16 16 16 Blood Pressure 120/60 117/57 L 114/53 L Pulse Oximetry 100 100 100 01/27/18 13:30 01/27/18 13:45 01/27/18 14:00 Temperature Pulse Rate 60 59 L 60 Respiratory Rate 16 16 16 Blood Pressure 117/58 L 119/56 L 116/58 L Pulse Oximetry 100 100 100 01/27/18 14:15 01/27/18 14:30 01/27/18 14:45 Temperature Pulse Rate 59 L 60 60 Respiratory Rate 16 16 16 Blood Pressure 109/56 L 112/56 L 112/55 L Pulse Oximetry 100 100 100 01/27/18 15:00 01/27/18 15:15 01/27/18 15:30 Temperature Pulse Rate 60 60 60 Respiratory Rate 16 16 16 Blood Pressure 113/56 L 117/54 L 115/56 L Pulse Oximetry 100 100 100 01/27/18 15:45 01/27/18 16:00 01/27/18 16:03 Temperature Pulse Rate 60 60 Respiratory Rate 16 16 16 Blood Pressure 114/57 L 112/53 L Pulse Oximetry 100 100 100 01/27/18 16:05 01/27/18 16:15 01/27/18 16:30 Temperature Pulse Rate 60 60 60 Respiratory Rate 16 16 16 Blood Pressure 116/56 L 120/57 L Pulse Oximetry 100 100 01/27/18 16:45 01/27/18 17:00 01/27/18 17:15 Temperature Pulse Rate 60 60 60 Respiratory Rate 16 16 16 Blood Pressure 123/56 L 122/57 L 125/56 L Pulse Oximetry 100 100 100 01/27/18 17:30 01/27/18 17:45 01/27/18 18:00 Temperature Pulse Rate 60 60 59 L Respiratory Rate 16 16 16 Blood Pressure 129/58 L 129/59 L 126/57 L Pulse Oximetry 90 L 100 100 01/27/18 19:00 01/27/18 19:51 01/27/18 20:00 Temperature 98.5 F Pulse Rate 60 60 Respiratory Rate 16 17 16 Blood Pressure 153/69 H 130/76 Pulse Oximetry 100 100 100 01/27/18 20:01 01/27/18 21:00 01/27/18 22:00 Temperature Pulse Rate 60 60 60 Respiratory Rate 16 18 16 Blood Pressure 133/66 105/53 L Pulse Oximetry 96 100 01/27/18 23:00 01/28/18 00:00 01/28/18 00:30 Temperature 98.3 F Pulse Rate 60 60 Respiratory Rate 16 16 16 Blood Pressure 111/62 104/53 L Pulse Oximetry 100 100 100 01/28/18 01:00 01/28/18 02:00 01/28/18 03:00 Temperature Pulse Rate 60 59 L 60 Respiratory Rate 16 16 16 Blood Pressure 96/52 L 101/50 L 97/51 L Pulse Oximetry 100 99 98 01/28/18 03:40 01/28/18 04:00 01/28/18 05:00 Temperature 98.9 F Pulse Rate 60 60 60 Respiratory Rate 16 16 16 Blood Pressure 94/55 L 96/46 L Pulse Oximetry 98 98 100 01/28/18 06:00 01/28/18 07:25 01/28/18 08:00 Temperature Pulse Rate 60 60 60 Respiratory Rate 16 16 16 Blood Pressure 87/57 L Pulse Oximetry 98 100 01/28/18 09:44 01/28/18 09:46 01/28/18 09:48 Temperature Pulse Rate 60 60 60 Respiratory Rate 16 16 16 Blood Pressure 137/65 134/60 138/70 Pulse Oximetry 100 100 100 01/28/18 09:50 01/28/18 09:52 01/28/18 09:54 Temperature Pulse Rate 60 60 60 Respiratory Rate 16 16 16 Blood Pressure 138/68 134/62 135/60 Pulse Oximetry 100 100 100 01/28/18 09:56 01/28/18 09:58 01/28/18 10:00 Temperature Pulse Rate 60 60 60 Respiratory Rate 16 16 16 Blood Pressure 135/61 133/61 135/63 Pulse Oximetry 100 100 100 01/28/18 10:02 01/28/18 10:04 01/28/18 10:06 Temperature Pulse Rate 60 60 60 Respiratory Rate 16 16 16 Blood Pressure 134/60 135/63 133/62 Pulse Oximetry 100 100 100 01/28/18 10:08 01/28/18 10:10 01/28/18 10:12 Temperature Pulse Rate 60 60 60 Respiratory Rate 16 16 16 Blood Pressure 130/63 132/62 135/65 Pulse Oximetry 100 100 100 01/28/18 10:14 01/28/18 10:16 01/28/18 10:18 Temperature Pulse Rate 60 60 60 Respiratory Rate 16 16 16 Blood Pressure 138/63 135/61 134/62 Pulse Oximetry 100 100 100 01/28/18 10:20 01/28/18 10:22 01/28/18 10:24 Temperature Pulse Rate 60 60 60 Respiratory Rate 16 16 16 Blood Pressure 125/60 129/59 L 142/65 H Pulse Oximetry 100 100 100 01/28/18 10:26 01/28/18 10:28 01/28/18 10:30 Temperature Pulse Rate 60 60 60 Respiratory Rate 16 16 16 Blood Pressure 134/62 137/66 134/66 Pulse Oximetry 100 100 100 01/28/18 10:32 01/28/18 11:19 Temperature Pulse Rate 60 Respiratory Rate 16 16 Blood Pressure 138/61 Pulse Oximetry 100 100 Intake & Output 01/27/18 01/28/18 01/28/18 18:59 06:59 18:59 Intake Total 990 / 990 590 / 590 250 / 250 Output Total 800 / 800 650 / 650 Balance 190 / 190 -60 / -60 250 / 250 Weight 145.1 kg Intake: IV 900 / 900 550 / 550 250 / 250 Heparin/D5W 25,000 U/250 mL 25, 250 / 250 000 unit In 250 ml @ Per Protocol 8 mls/hr IV.CONT TITRATE PRN Rx#:[id number] Diprivan 1000 mg/100 ml Inj 1, 300 / 300 500 / 500 000 mg In 100 ml @ 5 MCG/KG/MIN 4.266 mls/hr IV.CONT TITRATE PRN Rx#:[id number] Zosyn 3.375 GM Premix 50 ML @ 100 / 100 50 / 50 100 mls/hr IV.SIG Q8H DIEGO Rx#: [id number] fentaNYL 10 mcg/mL Premix Drip 250 / 250 250 / 250 2,500 mcg In 250 ml @ 50 MCG/HR 5 mls/hr IV.SIG TITRATE PRN Rx #:[id number] Tube Irrigant 90 / 90 40 / 40 Output: Urine Amount (Catheter) 550 / 550 650 / 650 Indwelling Urethral Catheter 550 / 550 650 / 650 Gastric Drainage 250 / 250 Oral Orogastric Tube 250 / 250 Other: Date of Last Bowel Movement 01/26/18 01/26/18 01/26/18 Result Diagrams: 01/28/18 05:05 01/27/18 04:01 Objective Remarks: Elderly, morbidly obese female laying in bed, sedated, orally intubated on [facility] ventilation HEENT/ Neuro: Sedated, orally intubated, Pallor present, no icterus, tongue/ mucosa moist Neck: No JVD Chest/Pulm: on mech vent, good air entry bilaterally, no wheezing or crackles CVS: S1-S2 regular, no murmur GI/abdomen: soft, nontender, bowel sounds sluggish Extremities: warm bilaterally, no edema Assessment and Plan - Problem List (1) Respiratory arrest Code(s): R09.2 - Respiratory arrest Status: Acute (2) Obesity Code(s): E66.9 - Obesity, unspecified Status: Acute (3) SEBASTIÁN (obstructive sleep apnea) Code(s): G47.33 - Obstructive sleep apnea (adult) (pediatric) Status: Acute (4) SEBASTIÁN on CPAP Code(s): G47.33 - Obstructive sleep apnea (adult) (pediatric); Z99.89 - Dependence on other enabling machines and devices Status: Acute (5) DANIELA (acute kidney injury) Code(s): N17.9 - Acute kidney failure, unspecified Status: Acute (6) Lactic acidemia Code(s): E87.2 - Acidosis Status: Acute - Assessment and Plan Plan: NEURO: Fentanyl drip for sedation. We will discontinue Versed drip. Use Versed as needed. Propofol can be added if needed for additional sedation. Target RASS -[address] brain prior to heparinization RESP: Acute respiratory arrest COPD Prior tobacco abuse Obstructive sleep apnea on home CPAP. Intubated in the field by EV[facility]. Ventilator bundle. Wean ventilator as tolerated and perform CPAP trials. Chest x-ray relatively unremarkable. PE is certainly a consideration, moderate/ high risk (prior DVT,immobilization, lower extremity fracture, INR subtherapeutic). HEr reports IV contrast allergy with hives. At this point would start with VQ for evaluation, could consider pretreatment with CTA if needed. Session with Dr. Mendez will empirically treat with heparin if CT brain is negative. We will need CPAP machine evaluated prior to discharge concern regarding malfunction. CV: PEA cardiac arrest Atrial fibrillation Pacemaker in place Lactic acidemia Suspect respiratory arrest. Check EKG. Initial troponin negative. Will trend Telemetry monitoring Obtain 2D echo Lactic acid elevated postarrest, will trend. Her universal grinder operator is Dr. Maldonado. GI: Obesity NG tube to low intermittent wall suction. Holding enteral feeds as planning transition to comfort measures on 01/28 FEN/RENAL: CKD stage III Hassan catheter in place. Monitor intake and output. Monitor electrolytes. Replace as indicated. ID: ?[id number] Received Zosyn and vancomycin in the emergency department. We will continue empiric treatment with Zosyn for ? UTI. Follow-up urine culture. Chest x-ray without infiltrate. Monitoring for evidence of fever, monitor CBC is adamant that she does NOT have a PCN allergy and requests that "be removed from the record". She did receive Zosyn in the ED without untoward effect. HEME: IVC filter in place History of DVT On chronic coagulation with warfarin for atrial fibrillation. INR is subtherapeutic at 1.2. There is based on presentation there is concern for PE. Will treat empirically with heparin drip. Hold warfarin for now pending w/u. ENDO: Hypothyroid Follow-up TSH. Synthroid 25 mcg OG daily Hyperglycemia Monitor bedside glucose every 6h and use low-dose insulin sliding scale as indicated. PROPH: Heparin drip will provide DVT prophylaxis. Famotidine for stress ulcer prophylaxis. ACCESS: Peripheral IV providing adequate access Patient's is her designated healthcare surrogate. He states she would wish to be DO NOT RESUSCITATE in of pulseless arrest. He agrees with continuing mechanical ventilation and continuing attempts at weaning. If she could not be successfully weaned to extubation he states she would not want prolonged mechanical ventilation or trach. Based on this discussion have change CODE STATUS to alternate code, intubation only. Has been requested that Dr. Zacarias be notified of her admission. Staff at [facility] states that he has been notified of her change in condition. Patient is critically ill with respiratory arrest resulting in intubation with multiple comorbidities and multiorgan dysfunction.. She is at high risk for further deterioration. She has a end-stage condition and has been bedbound for the last 2 years according to her . Patient's has decided to make her DNR status and is thinking of possible withdrawal and transition to comfort measures 01/28 following arrival of family. Palliative care following. Exhibits B & C signed. Critical care time 40 minutes exclusive of separately billable procedures
[2018-01-28] MEDS ORDERED: Morphine Sulfate Inj 8 MG/ML Vial IV.PUSH PRN ×2 (15:09→17:22)
[2018-01-28] MEDS ORDERED: Acetaminophen 650 MG Supp RECTAL PRN (15:09)
[2018-01-28] MEDS ORDERED: Hyoscyamine Inj 0.5 MG/ML Ampul IV.PUSH ONE (15:09)
[2018-01-28] MEDS ORDERED: Morphine Sulfate Inj 8 MG/ML Vial IV.PUSH ONE (15:09)
[2018-01-28 15:17] VITALS: BP 123/58
[2018-01-28] MEDS ORDERED: Morphine Inj 4 MG/ML Vial IV.PUSH ONE (15:30)
[2018-01-28] MEDS ORDERED: Morphine Inj 4 MG/ML Vial IV.PUSH SCH ×2 (16:00→20:00)
== END 2018-01-28 18:45 | disposition expired ==
LOC: NEPC 03:19 → NEDA 04:51 → HIMC 06:40
PROVIDERS: ADMIT Emergency Medicine; ATTEND Emergency Medicine